=== PATIENT | female | born 1980 | race African-American/Black ===

== ENCOUNTER 2024-10-25 10:21 | Emergency (ER) | payer OTHER, SELFPAY ==
[2024-10-25 10:40] VITALS: BP 137/88; PULSE 75; RESP 16; TEMP 36.9; O2SAT 100
--- NOTE | 2024-10-25 11:00 | ED.GENADULT ---
HPI - General Adult General Chief complaint: Unspecified Stated complaint: Pain in Right Hip/ Bilateral Pain in jaw/BP High History of Present Illness HPI narrative: Ever Calix Is a 44-year-old female with past medical history of hypertension and diabetes who presents today with complaints of chest tightness on the left side of jaw pain and left arm achiness. She states that it has been off and on for the past couple days but got much worse this morning. She states that at around 7:00 a.m. she called 911 and was taken to an outside hospital but was shortly after discharge without any labs done. So she presented here to see if she can get anything else resolved with her chest pain. She denies shortness of breath blood sugar here is a 94. Related Data Home Medications ?Medication ?Instructions ?Recorded ?Confirmed ?Last Taken ?Type lisinopril 10 mg tablet mg 10/25/24 Unknown History metoprolol tartrate 25 mg tablet mg 10/25/24 Unknown History pantoprazole 40 mg tablet,delayed mg PO 10/25/24 Unknown History release potassium chloride 10 mEq meq PO 10/25/24 Unknown History tablet,extended release Allergies Allergy/AdvReac Type Severity Reaction Status Date / Time Penicillins Allergy Unknown Hives / Verified 10/25/24 10:34 Red Face Review of Systems Review of Systems: All systems reviewed & are unremarkable except as noted in HPI and below Exam Narrative: GENERAL: Well-appearing, well-nourished, and in no acute distress. HEAD: Normocephalic, atraumatic. EYES: PERRLA and EOMI. ENT: Nares clear, no rhinorrhea or epistaxis. Mucous membranes moist. Oropharynx without tonsillar hypertrophy exudate or other lesions. Bilateral TMs pearly hess nonbulging NECK: Supple. No adenopathy or masses. No carotid bruits or JVD CHEST: Clear to auscultation. No respiratory distress. No wheezes rales or rhonchi HEART: Regular rate and rhythm. No murmur heard. Normal peripheral pulses. EXTREMITIES: Normal range of motion. No edema. SKIN: Warm, dry, no rash. NEURO: No focal deficits. Alert and oriented x3. PSYCH: Normal mood and affect. Course Course Level of Care: Express Care Visit Vital Signs Vital signs: Vital Signs Temperature 36.9 C 10/25/24 10:40 Pulse Rate 75 10/25/24 10:40 Respiratory Rate 16 10/25/24 10:40 Blood Pressure 137/88 10/25/24 10:40 Pulse Oximetry 100 10/25/24 10:40 Oxygen Delivery Room Air 10/25/24 10:40 Temperature 36.9 C 10/25/24 10:40 Pulse Rate 75 10/25/24 10:40 Respiratory Rate 16 10/25/24 10:40 Blood Pressure 137/88 10/25/24 10:40 Pulse Oximetry 100 10/25/24 10:40 Oxygen Delivery Room Air 10/25/24 10:40 Medical Decision Making MDM Narrative Medical decision making narrative: 44-year-old presenting with chest tightness left-sided jaw pain and left arm achiness. Denies history of having a heart attack in the past has history of hypertension and diabetes. Pain off and on for 2 days and got worse this morning. EKG done here shows sinus rhythm rate 82 with T-wave inversion in aVL, and lead 1 blood sugars 94 with patient having this ongoing cardiac symptoms recommended her to be transferred to emergency department to have labs completed. She is agreeable to this plan and would like to go to [facility]. Call report to ER provider Nette Salmon who accepts transfer to the emergency department. Medical Records Medical records reviewed: Yes I reviewed the external patient's medical records. Vital Signs Vital Signs: Vital Signs Temperature 36.9 C 10/25/24 10:40 Pulse Rate 75 10/25/24 10:40 Respiratory Rate 16 10/25/24 10:40 Blood Pressure 137/88 10/25/24 10:40 Pulse Oximetry 100 10/25/24 10:40 Oxygen Delivery Room Air 10/25/24 10:40 Temperature 36.9 C 10/25/24 10:40 Pulse Rate 75 10/25/24 10:40 Respiratory Rate 16 10/25/24 10:40 Blood Pressure 137/88 10/25/24 10:40 Pulse Oximetry 100 10/25/24 10:40 Oxygen Delivery Room Air 10/25/24 10:40 Vitals reviewed Lab Data Lab results reviewed: Yes I reviewed the patient's lab results. Labs: Lab Results 10/25/24 Range/Units 11:04 POC Capillary Glucose 94 (65-105) mg/dl ECG Data EKG #1: ECG completion date: 10/25/24 ECG completion time: 10:47 Prior ECG tracings: not available for review Interpretation: Sinus Rhythm, left ventricular hypertrophy, T wave inversion in lead I/ aVL / V6 Rate 82, MI 141, QRS 116, QT/QTC 387/425 P-R-T Discharge Plan Discharge Clinical Impression: Chest tightness Patient Disposition: Acute Care Hospital Condition: Stable Patient Language: Arabic Prescriptions: No Action potassium chloride 10 mEq tablet extended release PO pantoprazole 40 mg tablet,delayed release (DR/EC) PO lisinopril 10 mg tablet metoprolol tartrate 25 mg tablet Follow-up/Referrals: Jet,MD Oren [Primary Care Provider] - Time of Disposition: 11:08
[2024-10-25 11:06] LABS: Glucose Point of Care 94 mg/dl (65-105)
== END 2024-10-25 11:04 | disposition short-term general hospital (02) ==
PROVIDERS: Emergency Provider Nurse Practitioner Family; PCP Family Medicine
DX: R00.2 Palpitations (principal); K08.89 Other specified disorders of teeth and supporting structures; N39.0 Urinary tract infection, site not specified; Z79.899 Other long term (current) drug therapy
CPT/HCPCS: 82948; 93005; 99215; G0463

== ENCOUNTER 2024-10-25 11:27 | Emergency (ER) | payer OTHER, SELFPAY ==
[2024-10-25 11:28] VITALS: BP 151/85; PULSE 80; RESP 14; TEMP 37.3; O2SAT 100
[2024-10-25 11:36] VITALS: O2SAT 100
[2024-10-25 12:19] LABS: BEDSIDEPREGUCG Negative (Negative)
[2024-10-25 12:22] LABS: Basophils Percent Auto 0.5 % (0.2-1.2); Eosinophils Percent Auto 0.7 % (0-4.4); Hematocrit 39.8 % (37.0-47.0); Immature Granulocyte Absolute 0.01 K/mm3 (0.00-0.031); Immature Granulocyte Percent A 0.2 % (0-0.5); Lymphocytes Absolute Auto 1.39 K/mm3 (0.9-3.2); Lymphocytes Percent Auto 24.3 % (18.3-44.2); Mean Corpuscular HGB Conc 32.7 g/dl (32-36); Mean Corpuscular Hemoglobin 26.5 pg (26-34); Mean Corpuscular Volume 81.2 fl (80-100); Mean Platelet Volume 10.3 fl (7.4-10.4); Monocytes Absolute Auto 0.5 K/mm3 (0.1-0.6); Monocytes Percent Auto 8.2 % (2.6-8.5); Neutrophils Absolute Auto 3.8 K/mm3 (1.3-6.7); Neutrophils Percent Auto 66.1 % (45.5-73.1); Platelet Count Result 279 k/mm3 (150-375); Red Cell Distribution Width 13.5 % (11.5-14.5); White Blood Count 5.7 K/mm3 (4.5-10.0)
--- NOTE | 2024-10-25 12:24 | PC.NURSE ---
patient was given 324 of aspirin by EMS
[2024-10-25 12:30] LABS: Add Urine Microscopic? YES; Appearance Urine Cloudy (Clear); Bacteria Urine 2+ /hpf; Bilirubin Urine Negative (Negative); Blood Urine Negative (Negative); Color Urine Yellow (Yellow); Glucose Urine UA Negative (Negative); Ketones Urine Negative (Negative); Leukocyte Esterase Ur 2+ LEU/UL (Negative); Nitrate Urine Negative (Negative); Non Pathogenic Casts 0-2; Protein Urine Negative (Negative); Specific Grav Ur 1.022 (1.001-1.035); Squamous Epithelial Cell Urine Few /hpf (Few); WBC Urine 21-50 /hpf (0-3); pH Urine 5.5 (5.0-9.0)
[2024-10-25 12:34] LABS: Alanine Aminotransferase 17 U/L (6-35); Albumin Level 4.2 g/dL (3.5-5.1); Alkaline Phosphatase 71 U/L (38-126); Anion Gap 12 mmol/L (4-12); Aspartate Amino Transferase 17 U/L (14-36); Blood Urea Nitrogen 14 mg/dL (7-17); Calcium 9.5 mg/dL (8.4-10.2); Carbon Dioxide 24 mmol/L (22-30); Chloride 104 mmol/L (98-107); Estimated CRCL calculation 81 ml/min; Estimated Glomerular Filt Rate > 60; Glucose 107 mg/dL (65-110); Potassium 3.1 mmol/L (3.4-5.0); Sodium 140 mmol/L (137-145)
[2024-10-25 12:36] LABS: Prothrombin Time 13.7 Seconds (11.1-14.7)
[2024-10-25 12:37] LABS: Partial Thromboplastin Time 30.6 Seconds (22.3-36.8)
[2024-10-25 12:46] LABS: Troponin I < 0.012 ng/mL (0.000-0.034)
[2024-10-25 12:51] LABS: D Dimer < 0.27 ug/mL (<0.48)
[2024-10-25 13:18] VITALS: PULSE 76; RESP 23; O2SAT 100
--- NOTE | 2024-10-25 13:43 | ED.GENADULT ---
HPI - General Adult General Chief complaint: Chest Pain Stated complaint: CP abd pain Time Seen by Provider: 10/25/24 12:36 History of Present Illness HPI narrative: This is a 44-year-old female presenting for multiple complaints. Patient is unable to provide a concise history or really anyone clear reason why she is in the emergency department. First complaint is dental pain. She has been having dental pain on the left lower and right upper and right lower molars. This is a chronic problem. She has not taken anything for pain. No difficulty swallowing or breathing. Second complaint is lower abdominal pain. She has some suprapubic discomfort. She also says she feels bloated. No fevers chills nausea vomiting diarrhea. Denies dysuria but notes urinary urgency and frequency. Third complaint is palpitations. Patient said she woke up this morning with her heart racing. She has been having this occurring for 1 year. She has had a Holter monitor in the past and was told that she has PVCs but they did not detect any other dysrhythmias. She went to a another hospital earlier this morning where she has been worked up for this multiple times and she was discharged. Patient had an appointment with her primary care physician today at 9am but missed that appointment. She then came to our hospital for evaluation. Patient is tearful and crying during the interview. She cannot really tell me why. Related Data Home Medications ?Medication ?Instructions ?Recorded ?Confirmed ?Last Taken ?Type lisinopril 10 mg tablet mg 10/25/24 Unknown History metoprolol tartrate 25 mg tablet mg 10/25/24 Unknown History pantoprazole 40 mg tablet,delayed mg PO 10/25/24 Unknown History release potassium chloride 10 mEq meq PO 10/25/24 Unknown History tablet,extended release Allergies Allergy/AdvReac Type Severity Reaction Status Date / Time Penicillins Allergy Unknown Hives / Verified 10/25/24 10:34 Red Face Exam Narrative: APPEARANCE: No apparent distress. Head: atraumatic. Poor dentition. No obvious signs of infection or abscess. EYES: EOMI, NOSE: Atraumatic NECK: Trachea midline RESPIRATORY: No increased rate of breathing CTAB CARDIOVASCULAR: RRR, no peripheral edema ABDOMINAL: Soft nontender guarding rebound MUSCULOSKELETAl: No obvious deformities NEURO: Alert. Moving 4/4 extremities SKIN:: Warm, dry. Normal color PSYCHIATRIC: Normal affect Course Vital Signs Vital signs: Vital Signs Temperature 99.1 F 10/25/24 11:28 Pulse Rate 80 10/25/24 11:28 Respiratory Rate 14 10/25/24 11:28 Blood Pressure 151/85 H 10/25/24 11:28 Pulse Oximetry 100 10/25/24 11:28 Temperature 99.1 F 10/25/24 11:28 Pulse Rate 76 10/25/24 13:18 Respiratory Rate 23 H 10/25/24 13:18 Blood Pressure 151/85 H 10/25/24 11:28 Pulse Oximetry 100 10/25/24 13:18 Oxygen Delivery Room Air 10/25/24 11:36 Medical Decision Making MDM Narrative Medical decision making narrative: -Course: 44-year-old female presenting with multiple complaints. Patient is tearful and cannot really give me a concise or consistent history during the interview. She was evidently seen at [facility] earlier this morning. I called and talked to their physician and he said that she presented there with her typical complaint of palpitations that has been worked up multiple times. She has had a Holter monitor in the past which did not reveal a significant arrhythmia. I spoke to the patient about this and she has appointment with Cardiology next week although she says she is going to miss it because she is going out of town for [employer]. She also missed her primary care office visit this morning. I stressed the importance of making her medical appointments and not going to ER status we cannot provide the comprehensive medical care that she requires. Her workup here was significant for urinary tract infection which would explain her suprapubic discomfort. This will be treated. Dental pain could be treated with NSAIDs. Her chest pain workup including chest x-ray, EKG troponin and D-dimer were negative. She will be encouraged follow-up with her container washer for management. Patient's palpitations have been ongoing for 1 year and she has already had a Holter monitor. Further workup can be performed by her container washer as needed. -DDX includes but is not limited to: Anxiety, palpitations, cardiac dysrhythmia, viral illness, urinary tract infection, dental caries Independent EKG interpretation: Rhythm [sinus], Rate [82], Joes -[normal], UT -[normal], QRS [narrow], QTC [normal], T waves -[negative for concerning inversions], ST Segments - [Negative for concerning elevations] Final interpretations: [Normal Sinus Rhythm] Vital Signs Vital Signs: Vital Signs Temperature 99.1 F 10/25/24 11:28 Pulse Rate 80 10/25/24 11:28 Respiratory Rate 14 10/25/24 11:28 Blood Pressure 151/85 H 10/25/24 11:28 Pulse Oximetry 100 10/25/24 11:28 Temperature 99.1 F 10/25/24 11:28 Pulse Rate 76 10/25/24 13:18 Respiratory Rate 23 H 10/25/24 13:18 Blood Pressure 151/85 H 10/25/24 11:28 Pulse Oximetry 100 10/25/24 13:18 Oxygen Delivery Room Air 10/25/24 11:36 Lab Data 10/25/24 12:14 10/25/24 12:14 Labs: Lab Results 10/25/24 10/25/24 10/25/24 Range/Units 11:35 12:14 13:03 WBC 5.7 (4.5-10.0) K/mm3 RBC 4.90 (4.2-5.4) M/mm3 Hgb 13.0 (12.0-15.0) g/dL Hct 39.8 (37.0-47.0) % MCV 81.2 (80-100) fl MCH 26.5 (26-34) pg MCHC 32.7 (32-36) g/dl RDW 13.5 (11.5-14.5) % Plt Count 279 (150-375) k/mm3 MPV 10.3 (7.4-10.4) fl Immature Gran % (Auto) 0.2 (0-0.5) % Neut % (Auto) 66.1 (45.5-73.1) % Lymph % (Auto) 24.3 (18.3-44.2) % [place] % (Auto) 8.2 (2.6-8.5) % Eos % (Auto) 0.7 (0-4.4) % Baso % (Auto) 0.5 (0.2-1.2) % Lymph # (Auto) 1.39 (0.9-3.2) K/mm3 [place] # (Auto) 0.5 (0.1-0.6) K/mm3 Eos # (Auto) 0.0 (0-0.3) K/mm3 Baso # (Auto) 0.0 (0.0-0.1) K/mm3 Abs Immat Gran (auto) 0.01 (0.00-0.031) K/mm3 Absolute Neuts (auto) 3.8 (1.3-6.7) K/mm3 Absolute Nucleated RBC 0.000 (0.0-0.012) K/mm3 Nucleated RBC % 0.0 (0.0-0.2) % PT 13.7 (11.1-14.7) Seconds INR 1.0 APTT 30.6 (22.3-36.8) Seconds D-Dimer < 0.27 (<0.48) ug/mL Sodium 140 (137-145) mmol/L Potassium 3.1 L (3.4-5.0) mmol/L Chloride 104 (98-107) mmol/L Carbon Dioxide 24 (22-30) mmol/L Anion Gap 12 (4-12) mmol/L BUN 14 (7-17) mg/dL Creatinine 0.79 (0.7-1.0) mg/dL Estim Creat Clear Calc 81 ml/min Estimated GFR > 60 (59 - ) Glucose 107 (65-110) mg/dL Calcium 9.5 (8.4-10.2) mg/dL Total Bilirubin 1.0 (0.2-1.3) mg/dL AST 17 (14-36) U/L ALT 17 (6-35) U/L Alkaline Phosphatase 71 (38-126) U/L Troponin I < 0.012 (0.000-0.034) ng/mL Total Protein 8.0 (6.3-8.2) g/dL Albumin 4.2 (3.5-5.1) g/dL Urine Color Yellow (Yellow) Urine Appearance Cloudy H (Clear) Urine pH 5.5 (5.0-9.0) Ur Specific [place] 1.022 (1.001-1.035) Urine Protein Negative (Negative) mg/dL Urine Glucose (UA) Negative (Negative) mg/dL Urine Ketones Negative (Negative) mg/dL Ur Blood (Man) Negative (Negative) Urine Nitrate Negative (Negative) Urine Bilirubin Negative (Negative) Urine Urobilinogen 1.0 (<2.0) mg/dL Leukocyte Esterase Rfl 2+ H (Negative) MARIA DE JESUS/UL Urine RBC 3-5 H (0-2) /hpf Urine WBC 21-50 H (0-3) /hpf Ur Squamous Epith Cells Few (Few) /hpf Urine Bacteria 2+ H /hpf Urine Casts 0-2 POC Urine HCG, Qual Negative (Negative) Influenza A (RT-PCR) Pending Influenza B (RT-PCR) Pending RSV (RT-PCR) Pending SARS-CoV-2 RNA (RT-PCR) Pending Discharge Plan Discharge Clinical Impression: Palpitations, Toothache, UTI (urinary tract infection) Patient Disposition: Home, Self-Care Condition: Stable Instructions: Antibiotic Form, Heart Palpitations (DC), Urinary Tract Infection in Women (DC) Additional Instructions: He was seen emergency department for multiple complaints. You have a UTI. Please complete a course of Keflex. Please follow-up with your container washer for further management of your palpitations. You can return ED any time if you develop chest pain shortness breath or any new worsening symptoms. Patient Language: Khmer Prescriptions: No Action potassium chloride 10 mEq tablet extended release PO pantoprazole 40 mg tablet,delayed release (DR/EC) PO lisinopril 10 mg tablet metoprolol tartrate 25 mg tablet Follow-up/Referrals: Jet,MD Oren [Primary Care Provider] - 1 Week (ED F/U. Multiple complaints, Palpitations, UTI, Toothache. )
[2024-10-25] MEDS: POTASSIUM CHLORIDE 20 MEQ PACKET (FOR LIQUID) 40 MEQ PO (13:44)
--- NOTE | 2024-10-25 13:48 | PC.NURSE ---
called and spoke with Braxton in lab to add on urine drug screen to urine sample already sent down.
[2024-10-25 13:57] LABS: Influenza A QL RT-PCR Negative (Negative); Influenza B QL RT-PCR Negative (Negative); RSV RNA, RT-PCR Negative (Negative); SARS-CoV-2 RNA PCR Negative (Negative)
[2024-10-25] MEDS: ACETAMINOPHEN 500 MG TABLET 1000 MG PO (14:28)
[2024-10-25 14:35] VITALS: BP 124/69; PULSE 67; RESP 19; TEMP 37.1; O2SAT 100
[2024-10-25 15:15] LABS: Amphetamine Screen Urine Negative (Negative); Barbiturate Screen Urine Negative (Negative); Benzodiazepines Screen Urine Negative (Negative); Cannabinoid Screen Urine Negative (Negative); Cocaine Screen Urine Negative (Negative); Methadone Screen Urine Negative (Negative); Opiate Screen Urine Negative (Negative); Phencyclidine Screen Urine Negative (Negative)
== END 2024-10-25 14:36 | disposition home or self-care (01) ==
PROVIDERS: Emergency Medicine; Emergency Provider Emergency Medicine; PCP Family Medicine
DX: N39.0 Urinary tract infection, site not specified (principal); K08.89 Other specified disorders of teeth and supporting structures; R00.2 Palpitations; Z20.822 Contact with and (suspected) exposure to COVID-19; I45.9 Conduction disorder, unspecified; R94.31 Abnormal electrocardiogram [ECG] [EKG]; I51.7 Cardiomegaly
CPT/HCPCS: 36415; 71045; 80053; 80307; 81001; 81025; 84484; 85025; 85380; 85610; 85730; 87086; 87637; 93005; 99284; A9270

== ENCOUNTER 2024-11-07 20:39 | Emergency (ER) | payer OTHER, SELFPAY ==
--- NOTE | ~2024-11-07 | XR_ITS ---
XR chest 1V portable Ordering provider: Bayron Tesfaye History: 44 years Female with . high blood pressure . Comparison: None. FINDINGS: MEDIASTINUM: The cardiac silhouette is slightly enlarged. LUNGS: No infiltrates, effusions or pneumothorax. OTHER: No free air under the diaphragm. IMPRESSION: No acute cardiopulmonary pathology. Reviewed, dictated and finalized at location A.
--- OUTSIDE RECORDS SUMMARY | 2024-11-07 20:44 | XMS_ITS ---
Author Organization Unknown Address [address], [place] [phone] Phone Care Team Providers Care Manager Industrial Name Role Phone EMILY MARELY Registered Nurse Unavailable GERRY Devries Attending Unavailable KAREN CORDERO Primary Unavailable Results URINALYSIS - Collect Date/Ti me: 10/20/2024 19:41 OSEI GIRALDO HUY [place] O ID: [id number] [address], [place], [phone] LOINC: Test Value Unit Reference Range Code Code System Flag SPEC SOURCE: Random COLOR Yellow NORMAL: Straw CLARITY Clear NORMAL: Clear SPEC GRAVITY 1.020 1.005 - 1.020 pH 5.5 5.5 - 7.5 GLUCOSE Negative NORMAL: Negative BILIRUBIN Negative NORMAL: Negative KETONE Negative NORMAL: Negative PROTEIN Negative NORMAL: Negative NITRITE Negative NORMAL: Negative BLOOD Negative NORMAL: Negative LEUK EST Negative NORMAL: Negative UROBILINOGEN 0.2 0.2 - 1.0 mg/dL MICROSCOPIC Not Indicated SENT FOR C&S NO LIPASE - Collect Date/Time: 10/20/2024 19:41 OSEI GIRALDO HUY OLIVIER C O ID: [id number] [address], [place], [id number] LOINC: Test Value Unit Reference Range Code Code System Flag LIPASE 46 IU/L L=11 H=82 CBC WITH AUTO DIFF - Collect Date/Time: 10/20/2024 18:12 OSEI GIRALDO HUY OLIVIER C O ID: [id number] [address], [place], [phone] LOINC: Test Value Unit Reference Range Code Code System Flag WBC 6.4 K/uL L=4.5 H=11.0 RBC 5.76 M/uL L=4.20 H=5.40 H HEMOGLOBIN 15.2 g/dL L=12.0 H=16.0 HEMATOCRIT 45.6 % L=33.2 H=45.3 H MCV 79.2 fL L=79.5 H=98.1 L MCH 26.4 pg L=27.0 H=31.0 L MCHC 33.3 g/dL L=32.0 H=36.0 RDW 13.3 % L=11.5 H=14.5 PLATELETS 339 K/uL L=150 H=450 MPV 10.0 fL L=7.4 H=10.4 %NEUT 57.9 % L=53.0 H=69.0 %LYMPH 32.0 % L=16.0 H=48.0 %MONO 6.8 % L=1.0 H=13.0 %EOS 2.6 % L=0.0 H=10.0 %BASO 0.5 % L=0.0 H=1.0 #NEUT 3.7 K/uL L=2.4 H=7.6 #LYMPH 2.1 K/uL L=0.2 H=5.4 MANUAL DIFF NOT INDICATED WBC MORPH RBC MORPH PLT MORPH PLT EST COMPLETE METABOLIC PANEL - C ollect Date/Time: 10/20/2024 18:12 OSEI BURGESSKI Henning ID: [id number] [address], [place], [id number] LOINC: Test Value Unit Reference Range Code Code System Flag SODIUM 137 mmol/L L=136 H=145 POTASSIUM 3.6 mmol/L L=3.5 H=5.1 CHLORIDE 101 mmol/L L=98 H=107 CO2 27 mmol/L L=21 H=31 GLUCOSE 119 mg/dL L=74 H=109 H BUN 13 mg/dL L=7 H=25 CREATININE 0.84 mg/dL L=0.60 H=1.20 AGE 44 yrs EGFR 79 ml/min L=0 H=90 TOTAL PROTEIN 8.8 g/dL L=6.4 H=8.9 ALBUMIN 4.8 g/dL L=3.5 H=5.2 CALCIUM 10.0 mg/dL L=8.6 H=10.3 TOTAL BILI 1.0 mg/dL L=0.3 H=1.0 ALKALINE PHOS 64 IU/L L=34 H=104 SGOT/AST 16 IU/L L=13 H=39 SGPT/ALT 21 IU/L L=7 H=52 ERYTHROCYTE SED RATE - Colle ct Date/Time: 10/20/2024 18:12 OSEI OLIVIER Sabas Henning ID: [id number] [address] [place] [address], [id number] LOINC: 4537-7 Test Value Unit Reference Range Code Code System Flag SED RATE 37 mm/HR L=0 H=20 H Social History Type Status Start Date End Date Code Code Syst em Smoking History Never smoker (Never Smoked) 172432397 SNOMED CT Sex Female Vital Signs Vital Sign Value Unit [place] Value [place] Unit Date/Time Recent/Initial? Code Code System Body Mass Index 28.15 kg/m2 10/20/2024 17:08 Initial 24605 -5 LOINC Systolic Blood Pressure 130 mm[Hg] 10/20/2024 20:09 Most Recent 8480- 6 LOINC Diastolic Blood Pressure 80 mm[Hg] 10/20/2024 20:09 Most Recent 8462- 4 LOINC Systolic Blood Pressure 125 mm[Hg] 10/20/2024 17:08 Initial 8480- 6 LOINC Diastolic Blood Pressure 85 mm[Hg] 10/20/2024 17:08 Initial 8462- 4 LOINC Body Surface Area 1.83 m2 10/20/2024 17:08 Initial 3140- 1 LOINC Height 162.560 0 cm 64.00 in 10/20/2024 17:08 Initial 8302- 2 LOINC O2 Saturation 99 % 2024 20:09 Most Recent 28548 -5 LOINC O2 Saturation 97 % 2024 17:08 Initial 06640 -5 LOINC Pulse 70.0 /min 10/20/2024 20:09 Most Recent 8867- 4 LOINC Pulse 61.0 /min 10/20/2024 17:08 Initial 8867- 4 LOINC Respiration 20 /min 10/20/19 25 20:09 Most Recent 9279- 1 LOINC Respiration 16 /min 10/20/19 17:08 Initial 9279- 1 LOINC Temperature 36.9 Altagracia 98.4 F 10/20/19 17:08 Initial 8310- 5 LOINC Weight 74.39 kg 164.00 lbs 10/20/2024 17:08 Initial 85210 -7 LOINC Assessment You had the following problems:UTERINE FIBROIDCHEST PAINGASTRITISABDOMINAL PAINDEGENERATIVE DISORDER OF BONEESSENTIAL HYPERTENSIONCHRONIC KIDNEY DISEASE DUE TO TYPE 2 DIABETES MELLITUSIRON DEFICIENCYCARDIOMYOPATHYIMPAIRED FASTING GLYCAEMIASLEEP APNEAMILD INTERMITTENT ASTHMAHYPERTENSIVE DISORDER, SYSTEMIC ARTERIALHIATAL HERNIA Hospital Discharge Instructions Should you have any questions prior to discharge, please contact a member of your healthcare team. If you have left the hospital and have any questions, please contact your primary care physician. Reason For Referral No Data Found Problems Problem Start Date Resolved Date Status Code Code System UTERINE FIBROID active 37147348 SNOM ED-CT CHEST PAIN active 03908032 SNOMED-CT GASTRITIS active 0282381 SNOMED-CT ABDOMINAL PAIN active 32364797 SNOME D-CT DEGENERATIVE DISORDER OF BONE active 461717158 SNOMED-CT ESSENTIAL HYPERTENSION active 5631718 0 SNOMED-CT CHRONIC KIDNEY DISEASE DUE TO TYPE 2 DIABETES MELLITUS active 701712337650 SNOMED-CT IRON DEFICIENCY active 47075149 SNOM ED-CT CARDIOMYOPATHY active 85033929 SNOME D-CT IMPAIRED FASTING GLYCAEMIA active 390 407397 SNOMED-CT SLEEP APNEA active 57347334 SNOMED-C T MILD INTERMITTENT ASTHMA active 10115 9007 SNOMED-CT HYPERTENSIVE DISORDER, SYSTEMIC ARTERIAL active 52260643 SNOMED-CT HIATAL HERNIA active 64975828 SNOMED -CT Allergies and Adverse Reactions Allergy Substance Reaction Severity Start Date Concern Status Co de Code System PENICILLIN WELTS A CHILD (SNOMED-CT: null) Moderate Active Plan of Treatment NEW PATIENT 09/17/2024 FOLLOW-UP 11/12/2024 FOLLOW-UP 12/31/2024 Personal Care Team Section Performer Name Performer Role Active Date Inactive Da tushar Progress Notes OSEI Henning 10/20/2024 20:08 IV Discontinuation Explained procedure to patient. Using aseptic technique, removed tape and other securement measures, removed IV catheter, catheter intact, applied pressure to site, and applied bio-occlusive dressing over site. Patient tolerated procedure well without complications and site appeared within normal limits. OSEI OLIVIER Sabas Henning 10/20/2024 18:11 IV StartNPSG 1: Name and date of verified Specimen labeled in front of patientyes IV Start using aseptic technique.yes Explained procedure to patient/family.yes Site:lac Size:22 Solution and rate:500/hr Venigard used to secure IV.yes Number of attempts & location(s):1 Mechanism used for control of fluid: gravity Patient tolerated procedure well without any complications or complaints. yes
--- OUTSIDE RECORDS SUMMARY | 2024-11-07 20:44 | XMS_ITS ---
Author Organization Unknown Address [address] [place] [phone] Phone Care Team Providers Care Carpenter/Labor Name Role Phone JENNY ELISE Registered Nurse Unavailable SAMANTHA DAILY Attending Unavailable KAREN CORDERO Primary Unavailable Social History Type Status Start Date End Date Code Code Syst em Smoking History Never smoker (Never Smoked) 220811370 SNOMED CT Sex Female Vital Signs Vital Sign Value Unit [place] Value [place] Unit Date/Time Recent/Initial? Code Code System Body Mass Index 28.32 kg/m2 10/08/2024 17:53 Initial 20607 -5 [facility] Systolic Blood Pressure 134 mm[Hg] 10/08/2024 17:53 Initial 8480- 6 LOINC Diastolic Blood Pressure 91 mm[Hg] 10/08/2024 17:53 Initial 8462- 4 INC Body Surface Area 1.84 m2 10/08/2024 17:53 Initial 3140- 1 LOINC Height 162.560 0 cm 64.00 in 10/08/2024 17:53 Initial 8302- 2 LOINC O2 Saturation 98 % 2024 17:53 Initial 79225 -5 [facility] Pulse 76.0 /min 10/08/2024 17:53 Initial 8867- 4 LOINC Respiration 18 /min 10/08/19 17:53 Initial 9279- 1 LOINC Temperature 37.1 Altagracia 98.8 F 10/08/19 17:53 Initial 8310- 5 LOINC Weight 74.84 kg 165.00 lbs 10/08/2024 17:53 Initial 62537 -7 [facility] Medications Medication Start Date End Date Route Frequency Dose Code Code System Medication Instructions Home Meds Pantoprazole Sodium 40 MG Oral Tablet, Delayed Release 07/17/2024 10/11/2024 ORAL DAILY 40 MG 107363 RxNorm TA KE 40 MG ORAL DAILY FOR Gerd traMADol HCl 50MG Oral Tablet 07/17/2024 10/16/2024 ORAL EVERY 6 HOURS 1 TABLET 229430 RxNorm TAKE 1 TABLET ORAL EVERY 6 HOURS NEEDED FOR PAIN Zofran 4MG Oral Tablet 07/17/2024 10/11/2024 ORAL NEEDED EVERY 4 HOURS 1 TABLET 138768 RxNorm TAKE 1 TABLET ORAL NEEDED EVERY 4 HOURS metFORMIN HCl 500MG Oral Tablet 07/17/2024 10/11/2024 ORAL TWICE A DAY 500 MILLIGR AMS 441240 RxNorm TAKE 500 MILLIGRAM S ORAL TWICE A DAY FOR Diabetes Slynd 4 MG; NA Oral Tablet 07/17/2024 10/11/2024 ORAL DAILY 4 MILLIGR AMS 6375019 RxNorm TAKE 4 MILLIGRAM S ORAL DAILY FOR Control Metoprolol Tartrate 25MG Oral Tablet 07/17/2024 10/11/2024 ORAL TWICE A DAY 12.5 MILLIGR AMS 169724 RxNorm TAKE 12.5 MILLIGRAM S ORAL TWICE A DAY FOR Blood Pressure Albuterol Sulfate HFA 0.09MG/1Actuatio n Inhalation Suspension 07/18/2024 10/11/2024 INHALATIO N NEEDED EVERY 4 HOURS 2 PUFF 3933367 RxNorm 2 PUFF INHALATIO N NEEDED EVERY 4 HOURS Cyclobenzaprine 10MG Oral Tablet 08/17/2024 10/11/2024 ORAL 1 TABLET 168854 RxNorm TAKE 1 TABLET ORAL Assessment You had the following problems:UTERINE FIBROIDCHEST [...] Status Code Code System UTERINE FIBROID active 42056645 SNOM ED-CT CHEST PAIN active 78334131 SNOMED-CT GASTRITIS active 7535823 SNOMED-CT ABDOMINAL PAIN active 29280567 SNOME D-CT DEGENERATIVE DISORDER OF BONE active 396283284 SNOMED-CT ESSENTIAL HYPERTENSION active 4848245 0 SNOMED-CT CHRONIC KIDNEY DISEASE DUE TO TYPE 2 DIABETES MELLITUS active 927281956650 SNOMED-CT IRON DEFICIENCY active 95277943 SNOM ED-CT CARDIOMYOPATHY active 97479057 SNOME D-CT IMPAIRED FASTING GLYCAEMIA active 390 256424 SNOMED-CT SLEEP APNEA active 54811881 SNOMED-C T MILD INTERMITTENT ASTHMA active 68464 9007 SNOMED-CT HYPERTENSIVE DISORDER, SYSTEMIC ARTERIAL active 46900103 SNOMED-CT HIATAL HERNIA active 82881930 SNOMED -CT Allergies and Adverse Reactions Allergy Substance Reaction Severity Start Date Concern Status Co de Code System PENICILLIN WELTS A CHILD (SNOMED-CT: null) Moderate Active Plan of Treatment NEW PATIENT 09/17/2024 FOLLOW-UP 11/12/2024 FOLLOW-UP 12/31/2024 Encounters Encounter Diagnosis Start Date Code Code Sys tem Localized eruption of skin 10/08/2024 798062796 S NOMED-CT Personal Care Team Section Performer Name Performer Role Active Date Inactive Da tushar
--- OUTSIDE RECORDS SUMMARY | 2024-11-07 20:44 | XMS_ITS ---
Author Organization Unknown Address [address] [place] [phone] Phone Care Team Providers Care Gem Technician Name Role Phone Honey Mcarthur Registered Nurse Unavailable QUINTON POND Attending Unavailable KAREN CORDERO Primary Unavailable Results URINALYSIS - Collect Date/Ti me: 11/05/2024 07:16 OSEI GIRALDO HYU [place] O ID: [id number] [address] [place] [address], [phone] LOINC: Test Value Unit Reference Range Code Code System Flag SPEC SOURCE: Random COLOR Yellow NORMAL: Straw CLARITY Clear NORMAL: Clear SPEC GRAVITY 1.010 1.005 - 1.020 pH 7.0 5.5 - 7.5 GLUCOSE Negative NORMAL: Negative BILIRUBIN Negative NORMAL: Negative KETONE Negative NORMAL: Negative PROTEIN Negative NORMAL: Negative NITRITE Negative NORMAL: Negative BLOOD Negative NORMAL: Negative LEUK EST Negative NORMAL: Negative UROBILINOGEN 0.2 0.2 - 1.0 mg/dL MICROSCOPIC Not Indicated SENT FOR C&S NO LIPASE - Collect Date/Time: 11/05/2024 05:39 OSEI GIRALDO HUY [place] O ID: [id number] [address] [place], [place], [id number] LOINC: Test Value Unit Reference Range Code Code System Flag LIPASE 24 IU/L L=11 H=82 CBC WITH AUTO DIFF - Collect Date/Time: 11/05/2024 05:39 OSEI GIRALDO HUY [place] O ID: [id number] [address] [place] [address], [id number] LOINC: Test Value Unit Reference Range Code Code System Flag WBC 4.6 K/uL L=4.5 H=11.0 RBC 5.20 M/uL L=4.20 H=5.40 HEMOGLOBIN 13.8 g/dL L=12.0 H=16.0 HEMATOCRIT 41.7 % L=33.2 H=45.3 MCV 80.2 fL L=79.5 H=98.1 MCH 26.5 pg L=27.0 H=31.0 L MCHC 33.1 g/dL L=32.0 H=36.0 RDW 13.7 % L=11.5 H=14.5 PLATELETS 262 K/uL L=150 H=450 MPV 10.0 fL L=7.4 H=10.4 %NEUT 69.2 % L=53.0 H=69.0 H %LYMPH 21.3 % L=16.0 H=48.0 %MONO 6.8 % L=1.0 H=13.0 %EOS 1.8 % L=0.0 H=10.0 %BASO 0.7 % L=0.0 H=1.0 #NEUT 3.2 K/uL L=2.4 H=7.6 #LYMPH 1.0 K/uL L=0.2 H=5.4 MANUAL DIFF NOT INDICATED WBC MORPH RBC MORPH PLT MORPH PLT EST TROPONIN HS - Collect Date/T kaylen: 11/05/2024 05:39 OSEI KEENMoriah [place] O ID: [id number] [address] [place] [address], [phone] LOINC: Test Value Unit Reference Range Code Code System Flag TROPONIN HS 0.003 ng/mL L=0.000 H=0.030 MAGNESIUM - Collect Date/Vinny e: 11/05/2024 05:39 OSEI BURGESSKI [place] O ID: [id number] [address] [place] [address], [id number] LOINC: Test Value Unit Reference Range Code Code System Flag MAGNESIUM 1.9 mg/dL L=1.6 H=2.4 COMPLETE METABOLIC PANEL - C ollect Date/Time: 11/05/2024 05:39 OSEI OLIVIER O ID: [id number] [address] [place] [address], [id number] LOINC: Test Value Unit Reference Range Code Code System Flag SODIUM 138 mmol/L L=136 H=145 POTASSIUM 3.5 mmol/L L=3.5 H=5.1 CHLORIDE 104 mmol/L L=98 H=107 CO2 26 mmol/L L=21 H=31 GLUCOSE 149 mg/dL L=74 H=109 H BUN 11 mg/dL L=7 H=25 CREATININE 0.86 mg/dL L=0.60 H=1.20 AGE 44 yrs EGFR 77 ml/min L=0 H=90 TOTAL PROTEIN 7.2 g/dL L=6.4 H=8.9 ALBUMIN 3.9 g/dL L=3.5 H=5.2 CALCIUM 9.3 mg/dL L=8.6 H=10.3 TOTAL BILI 0.6 mg/dL L=0.3 H=1.0 ALKALINE PHOS 54 IU/L L=34 H=104 SGOT/AST 7 IU/L L=13 H=39 L SGPT/ALT 7 IU/L L=7 H=52 CT ABDOMEN AND PELVIS W CONT RAST - Completed: 11/05/2024 06:34 LOINC: [id number] [address] Name: CARMELA HILL Exam: CT ABDOMEN AND PELVIS W CONTRAST Exam Date: 11/05/2024 : 1980 Acc#: [id number] Ordering: SALTY ALCANTARA Referrer: CONSUELO JONES EXAM DESCRIPTION: CT ABDOMEN AND PELVIS W CONTRAST REASON FOR STUDY: Left sided chest and lower abdominal pain. No nausea, vomiting or diarrhea. Duration: 4 days Previous Surgery: Cholecystectomy TECHNIQUE: CT scan of the abdomen and pelvis performed with intravenous and without oral contrast using helical scanning technique with dynamic intravenous contrast injection. Reconstructed coronal and sagittal MPR images reviewed. All images stored on PACS. Automated exposure control was used as a dose optimization technique for this examination. CONTRAST TYPE/DOSE: 100mL of Omnipaque 350 injected via Left AC COMPARISON: 07/13/2024 FINDINGS: LOWER CHEST: No significant pulmonary abnormalities. No effusion. Moderate-sized hiatal hernia. LIVER: Normal size. Hypodensity along falciform ligament suggesting fatty infiltrative change. GALLBLADDER: Surgically absent with clips in place. BILE DUCTS: No intrahepatic or extrahepatic ductal dilatation. SPLEEN: Normal size. No focal lesions. PANCREAS: No identified cystic or solid masses. No significant calcifications. No adjacent inflammation or peripancreatic fluid collections. Pancreatic duct not dilated. ADRENALS: Normal. KIDNEYS/URINARY TRACT: No identified significant cystic or solid masses. No visualized stones. No hydronephrosis or hydroureter. Symmetric enhancement. Urinary bladder is unremarkable. GI: No dilated bowel loops. No obvious wall thickening. Normal appendix. No significant diverticular disease. PERITONEUM: No ascites or free air. RETROPERITONEUM: No mass or adenopathy. REPRODUCTIVE: Uterus is enlarged with multiple heterogeneous density nodular foci suggesting diffuse and focal extensive fibroid disease. VASCULATURE: No abdominal aortic aneurysm. MUSCULOSKELETAL: No significant abnormality. OTHER: No other abnormality. IMPRESSION: No acute finding. Moderate-sized hiatal hernia. Diffuse and extensive uterine fibroid disease. THIS IS AN ELECTRONICALLY VERIFIED FINAL REPORT 11/05/2024 6:50 AM - Electronically signed by Kristopher Robledo M.D. RB: QIANA Report ID: [id number] Reading Location: [id number] XR CHEST 1 VIEW - Completed: 11/05/2024 05:51 LOINC: [place] [address] Name: CARMELA HILL Exam: XR CHEST 1 VIEW Exam Date: 11/05/2024 : 1980 Acc#: [id number] Ordering: SALTY ALCANTARA Referrer: CONSUELO JONES EXAM DESCRIPTION: XR CHEST 1 VIEW REASON FOR STUDY: Patient arrives to ED with complaint of left side chest/abd pain. radiates to the left flank. No co n/v/d. Duration: 4 days TECHNIQUE: Single radiographic view(s) of the chest. COMPARISON: 08/16/2024 FINDINGS: Central vascularity are nonenlarged. Aortic arch well-defined on the left. Perihilar interstitial densities likely related to mild peribronchial inflammatory change. No dense consolidation, effusion or pneumothorax. IMPRESSION: Mild peribronchial inflammatory changes. THIS IS AN ELECTRONICALLY VERIFIED FINAL REPORT 11/05/2024 6:04 AM - Electronically signed by Kristopher Robledo M.D. RB: QIANA Report ID: [id number] Reading Location: [place] [address] Social History Type Status Start Date End Date Code Code Syst em Smoking History Never smoker (Never Smoked) 246818905 SNOMED CT Sex Female Vital Signs Vital Sign Value Unit [place] Value [place] Unit Date/Time Recent/Initial? Code Code System Body Mass Index 40.02 kg/m2 11/05/2024 04:52 Initial 83962 -5 LOINC Systolic Blood Pressure 122 mm[Hg] 11/05/2024 07:45 Most Recent 8480- 6 LOINC Diastolic Blood Pressure 80 mm[Hg] 11/05/2024 07:45 Most Recent 8462- 4 LOINC Systolic Blood Pressure 156 mm[Hg] 11/05/2024 04:52 Initial 8480- 6 LOINC Diastolic Blood Pressure 105 mm[Hg] 11/05/2024 04:52 Initial 8462- 4 LOINC Body Surface Area 1.69 m2 11/05/2024 04:52 Initial 3140- 1 LOINC Height 137.160 0 cm 54.00 in 11/05/2024 04:52 Initial 8302- 2 LOINC O2 Saturation 95 % 2024 07:45 Most Recent 94473 -5 LOINC O2 Saturation 98 % 2024 04:52 Initial 11793 -5 LOINC Pulse 75.0 /min 11/05/2024 07:45 Most Recent 8867- 4 LOINC Pulse 92.0 /min 11/05/2024 04:52 Initial 8867- 4 LOINC Respiration 17 /min 11/06/19 04:52 Initial 9279- 1 LOINC Temperature 37.0 Altagracia 98.6 F 11/06/19 04:52 Initial 8310- 5 LOINC Weight 75.30 kg 166.00 lbs 11/05/2024 04:52 Initial 78238 -7 LOINC Assessment You had the following [...] Status Code Code System UTERINE FIBROID active 96415466 SNOM ED-CT CHEST PAIN active 50789447 SNOMED-CT GASTRITIS active 0897588 SNOMED-CT ABDOMINAL PAIN active 41315092 SNOME D-CT DEGENERATIVE DISORDER OF BONE active 267498385 SNOMED-CT ESSENTIAL HYPERTENSION active 3071028 0 SNOMED-CT CHRONIC KIDNEY DISEASE DUE TO TYPE 2 DIABETES MELLITUS active 154791468549 SNOMED-CT IRON DEFICIENCY active 79076875 SNOM ED-CT CARDIOMYOPATHY active 40395745 SNOME D-CT IMPAIRED FASTING GLYCAEMIA active 390 362080 SNOMED-CT SLEEP APNEA active 34966724 SNOMED-C T MILD INTERMITTENT ASTHMA active 49193 9007 SNOMED-CT HYPERTENSIVE DISORDER, SYSTEMIC ARTERIAL active 13188272 SNOMED-CT HIATAL HERNIA active 96315797 SNOMED -CT Allergies and Adverse Reactions Allergy Substance Reaction Severity Start Date Concern Status Co de Code System PENICILLIN WELTS A CHILD (SNOMED-CT: null) Moderate Active Plan of Treatment NEW PATIENT 09/17/2024 FOLLOW-UP 11/12/2024 FOLLOW-UP 12/31/2024 Personal Care Team Section Performer Name Performer Role Active Date Inactive Da te Progress Notes OSEI Henning 11/05/2024 05:40 IV StartNPSG 1: Name and date of verified Specimen labeled in front of patient IV Start using aseptic technique. Explained procedure to patient/family. Site:Left AC Size: 20 gauge Solution and rate: NSL Venigard used to secure IV. Number of attempts & location(s):2 Right AC and Left AC Mechanism used for control of fluid: NSL Patient tolerated procedure well without any complications or complaints.
--- OUTSIDE RECORDS SUMMARY | 2024-11-07 20:44 | XMS_ITS | Data Portability ---
Author Organization [facility] [place] [facility] Address [address] [place] [address] Assessment Encounter Date Assessment Date Assessment LastModified by Organization Details LastModified Time 09/27/2024 09/27/2024 44-year-old female with a history of intramural leiomyoma of the uterus presenting with symptoms of menometrorrhagia. The patient has ongoing issues with irregular and excessive menstrual bleeding, contributing to anemia. Given her strong preference to avoid hysterectomy, alternative uterine-sparing procedures such as uterine artery embolization are being considered. Her cardiovascular symptoms, including palpitations and abnormal EKG findings, require further monitoring and evaluation to ascertain the presence of any underlying cardiac pathology that might be contributing to her symptoms. [facility]our[facility] with [email or web address] Not available 09/27/2024 12:31:18 Plan of Treatment Reminders Order Date Submit Date Provider Last Modified By Organization Details Last Modified Time Details Appointments None recorded. Lab test, urine 2023 024 breanna [facility], [address] [place], [address], 4 12:41:36 prolactin, serum 2021 022 [facility], [address] [place], [address], 2 05:12:28 TSH, serum or plasma 2021 022 [facility], [address] [place], [address], 2 05:12:28 pap, IG + HPV mRNA E6/E7 + reflex HPV (16+18+45) 2021 022 [facility], [address] [facility] [place], [place], [address], 16:02:47 Referral None recorded. Procedures None recorded. Surgeries None recorded. Imaging US, transvagina l 2024 025 [email or web address] Not available 5 11:58:58 US, transvagina l 2023 024 [email or web address] Not available 13:31:21 bone density 2021 022 [email or web address] Not available 11:16:00 MAMMO, screening, digital, bilateral 2021 022 [email or web address] Not available 11:16:00 Medication Orders Slynd 4 mg (28) tablet 2023 024 MONA [facility], [address] [place], [address], 4 13:12:07 Provera 10 mg tablet 2023 024 [email or web address] [facility], [address] [place], [address], 5 11:13:29 Patient TargetsNo targets recorded. Patient Instructions Encounter Date Encounter Id Patient Instructions Last Modified By Organization Details Last Modified Time 04/07/2022 [id number] Patient Health Questionnaire-9* [email or web address] Not available 04/14/2022 12:02:08 abuse/domestic violence education [email or web address] Not available 04/07/2022 13:22:57 eating healthy foods: care instructions [email or web address] Not available 04/07/2022 13:22:57 general health care education [email or web address] Not available 04/07/2022 13:22:58 weight management education [email or web address] Not available 04/07/2022 13:22:57 mammogram: about this test [email or web address] Not available 04/07/2022 13:22:57 04/12/2024 [id number] - Start taking the prescribed progesterone-onl y pills - Schedule a follow-up appointment in six months to monitor fibroid growth and assess the response to treatment - Discontinue the previously prescribed progesterone - Be aware of the limitations on hormonal treatments containing estrogen due to high blood pressure Not available 04/27/2024 20:42:25 09/27/2024 [id number] -Follow up with cardiology Not available 09/27/2024 12:31:28 Reason for Referral None Reported. Results Created Date Observation Date Name Description Value Unit Range Abnormal Flag Note LastModifiedBy Organization Detail LastModifiedTime 04/07/2004/08/2022 PROLA CTIN prolactin 8.2 NG/mL normal Refer ence Range Femal es Non-p regna nt 3.0-3 0.0 Pregn ant 10.0- 209.0 Postm enopa usal 2.0-2 0.0 Not Available [facility] [address] [address] [place], [address], 04/08/2022 05:12:28 04/07/20 22 04/08/2022 TSH W/REF HUGO TO FT4 TSH w/reflex to FT4 1.58 mIU/L normal Refer ence Range > or = 20 Years 0.40- 4.50 Pregn liana Range s First trime ster 0.26- 2.66 Secon d trime ster 0.55- 2.73 Third trime ster 0.43- 2.91 Not Available [facility] [address] [place], [address], 04/08/2022 05:12:28 04/07/20 22 04/11/2022 THINP REP TIS PAP AND HPV MRNA E6/E7 WITH REFLE X TO HPV 16,18 /45 clinical information: normal Infor matio n not provi ded Not Available [facility] [address] [address] [place], [address], 04/11/2022 16:02:47 04/07/20 22 04/11/2022 THINP REP TIS PAP AND HPV MRNA E6/E7 WITH REFLE X TO HPV 16,18 /45 LMP: normal NONE GIVEN Not Available [address], [address], 04/11/2022 16:02:47 04/07/20 22 04/11/2022 THINP REP TIS PAP AND HPV MRNA E6/E7 WITH REFLE X TO HPV 16,18 /45 prev. Pap: normal NONE GIVEN Not Available [address], [address], 04/11/2022 16:02:47 04/07/20 22 04/11/2022 THINP REP TIS PAP AND HPV MRNA E6/E7 WITH REFLE X TO HPV 16,18 /45 prev. BX: normal NONE GIVEN Not Available [address], [address], 04/11/2022 16:02:47 04/07/20 22 04/11/2022 THINP REP TIS PAP AND HPV MRNA E6/E7 WITH REFLE X TO HPV 16,18 /45 source: normal None given Not Available [address], [address], 04/11/2022 16:02:47 04/07/20 22 04/11/2022 THINP REP TIS PAP AND HPV MRNA E6/E7 WITH REFLE X TO HPV 16,18 /45 statement of adequacy: normal Satis facto ry for evalu ation . Endoc ervic al/tr ansfo rmati on zone compo nent prese nt. Age and/o r menst rual statu s not provi ded Not Available [address], [address], 04/11/2022 16:02:47 04/07/20 22 04/11/2022 THINP REP TIS PAP AND HPV MRNA E6/E7 WITH REFLE X TO HPV 16,18 /45 interpretati on/result: normal Negat shaye for intra epith elial lesio n or malig brenton . Not Available [address] [address] [place], [address], 04/11/2022 16:02:47 04/07/20 22 04/11/2022 THINP REP TIS PAP AND HPV MRNA E6/E7 WITH REFLE X TO HPV 16,18 /45 comment: normal This Pap test has been evalu ated with compu mckeon techn ology . Not Available [address] [address] [address], [place], [address], 04/11/2022 16:02:47 04/07/20 22 04/11/2022 THINP REP TIS PAP AND HPV MRNA E6/E7 WITH REFLE X TO HPV 16,18 /45 cytotechnolo gist: normal DDS, CT( CP) CT scree vinny locat ion: [address] [place] [address] Not Available [address] [address] [place], [address], 04/11/2022 16:02:47 04/07/20 22 04/11/2022 THINP REP TIS PAP AND HPV MRNA E6/E7 WITH REFLE X TO HPV 16,18 /45 comment EXPLA NATOR Y NOTE: The Pap is a scree vinny test for cervi shahla cance r. It is not a diagn ostic test and is subje ct to false negat shaye and false posit shaye resul ts. It is most relia ble when a satis facto ry sampl e, regul aashish obtai claire, is submi tted with relev ant clini shahla findi ngs and histo ry, and when the Pap resul t is evalu ated along with histo vincenzo and curre nt clini shahla infor matio n. Not Available [address] [address] [place], [address], 04/11/2022 16:02:47 04/07/20 22 04/11/2022 THINP REP TIS PAP AND HPV MRNA E6/E7 WITH REFLE X TO HPV 16,18 /45 HPV MRNA E6/E7 Not Detect ed not detect ed normal Metho dolog y: Trans cript ion-M ediat ed Ampli ficat ion This assay detec ts E6/E7 viral messe nger RNA (mRNA ) from 14 high- risk HPV types (16,1 8,31, 33,35 ,39,4 5,51, 52,56 ,58,5 9,66, 68). Cervi shahla sourc es are requi red for HPV testi ng. If a vagin al sourc e from a patie nt who has had a total hyste recto my with remov al of cervi x was submi tted, pleas e conta ct the testi ng labor atory for alter nativ e testi ng optio ns. For addit ional infor keysha camejo refer to http: //[facility] mykel patrick.que stdia gnost ics.c om/fa q/FAQ 129v1 (This link if provi ded for infor nancy patrick/ educmeghan tolentino purpo ses only. ) Not Available [facility] [address] [place], [address], 04/11/2022 16:02:47 03/14/20 24 03/14/2024 pregn liana test, urine HCG negati ve Not Available [facility] [address] [place], [address], 03/08/2024 09:58:09 04/12/20 24 04/12/2024 , trans vagin al No observ ation record ed. [email or web address] Cec[address], [place], [address], 04/12/2024 15:11:13 09/27/19 25 09/27/2024 , trans vagin al No observ ation record ed. [email or web address] [address], [place], [address], 09/27/2024 12:36:26 Result Notes None recorded. Problems Name Problem SNOMED Code Status Onset Date Resolution Date Notes Provider Name and Address Organization Details Recorded Time Breast lump 97654654 Completed 201609/14/2018 Breast mass; Progress : Stable Added By: Sahra Hardwick Add to Current Problems : NO ProblemS tatus: Resolve Unspecif ied lump in breast; Progress : Stable Added By: Sahra Hardwick Add to Current Problems : NO ProblemS tatus: Resolve Breast mass; Location : None Progress : Stable Added By: Sahra Hardwick Add to Current Problems : YES ProblemS tatus: Current Not Available [facility] 10:47:25 Problem Notes None recorded. Procedures Surgical History Date Name Laterality Status Provider Name and Address Organization Details Recorded Time 08/28/19 24 Most Recent Mammogram completed Cathy Mo [facility] 03/14/2024 12:08:22 04/07/20 Date of Last Pap Smear completed Honey Brizuela, [facility] [address] [place], [address], [facility] 03/08/2024 09:54:14 cholecystostomy completed Lucy Bret [facility] [place] [facility] IV 09/27/2024 11:12:49 Imaging Results Imaging Date Name Status LastModified by Organization Details LastModified Time 04/12/2024 US, transvaginal completed [email or web address] [address], [place], [address], 04/12/2024 15:11:13 09/27/2024 US, transvaginal completed [email or web address] [address], [place], [address], 09/27/2024 12:36:26 Procedure Notes None recorded. Medical Equipment None Reported. Allergies Allergen ID Allergen Name Allergen Category Reaction Reaction Severity Criticality Documentation Date Start Date Code Code System Note Provider Name and Address Organization Details Recorded Time 436991 Product containin g penicilli n (product) medicatio n hives moderate Not available 06/18/20212016 30668 8001 SNOMED React ion: hives ;Cheryl rity: Moder ate; Not Available Not Available Not Available Medications Name Sig Start Date Stop Date Status Note LastModified by Organization Details LastModified Time cyclobenz aprine 10 mg tablet 04/12 completed Not Available Not Available Not Available medroxypr ogesteron e 10 mg tablet TAKE 1 TABLET EVERY DAY BY ORAL ROUTE. 09/27 completed Not Available Not Available Not Available metformin 500 mg tablet 09/27 completed Not Available Not Available Not Available prednison e 10 mg tablet 04/12 completed Not Available Not Available Not Available doxycycli ne hyclate 100 mg capsule 03/14 completed Not Available Not Available Not Available clindamyc in HCl 300 mg capsule 03/14 completed Not Available Not Available Not Available sucralfat e 1 gram tablet 04/12 completed Not Available Not Available Not Available metronida zole 250 mg tablet 03/14 completed Not Available Not Available Not Available triamcino lone acetonide 0.1 % topical cream 04/12 completed Not Available Not Available Not Available dicyclomi ne 20 mg tablet 04/12 completed Not Available Not Available Not Available pantopraz ole 40 mg tablet,de layed release active Not Available Not Available Not Available nystatin 100,000 unit/gram topical cream 04/12 completed Not Available Not Available Not Available lisinopri l 10 mg tablet 2023 active Not Available Not Available Not Avai lable aspirin 81 mg chewable tablet 09/27 completed Not Available Not Available Not Available lisinopri l 5 mg tablet active Not Available Not Available Not Available mupirocin 2 % topical ointment apply a small amount to the affected area by topical route 3 times per day 04/07 completed mupiroci n 2 % Topical Ointment RxNorm: 202225 Allow Substitu tion: True Refill Denied: No Edited by: Nikolas Vaz) on 12/08/19 21 Stopped by: Jah bailey(Nikolas Thompson) on Not Available Not Available Not Available ondansetr on 4 mg disintegr ating tablet 03/14 completed Not Available Not Available Not Available fluticaso ne propionat e 50 mcg/actua tion nasal spray,ryan pension USE 2 SPRAY(S) IN EACH NOSTRIL ONCE DAILY 04/12 completed Not Available Not Available Not Available clotrimaz ole 1 % topical cream Apply a very small amoun to the affected areas BID x 10 days 02/11 completed Clotrima zole 1% Cream RxNorm: 541520 Allow Substitu tion: True Refill Denied: No Not Available Not Available Not Available metoclopr amide 10 mg tablet TAKE 1 TABLET BY MOUTH 4 TIMES DAILY FOR 10 DAYS 03/14 completed Not Available Not Available Not Available metoprolo l tartrate 25 mg tablet 09/27 completed Not Available Not Available Not Available clotrimaz ole Apply a very small amoun to the affected areas BID x 10 days 09/14 completed Clotrima zole 1% Cream RxNorm: 404355 Allow Substitu tion: True Refill Denied: No Not Available Not Available Not Available Prilosec 03/14 completed Prilosec RxNorm: 510776 Allow Substitu tion: True Refill Denied: No Refill DateOccu rred: 01/31/20 17 Edited by: Nikolas Vaz) on 12/08/19 21 Stopped by: Jah bailey(Nikolas Thompson) on Not Available Not Available Not Available OneTouch Verio test strips active Not Available Not Available Not Available OneTouch Verio Flex Meter active Not Available Not Available Not Available OneTouch Delica Plus Lancet 33 gauge active Not Available Not Available Not Available Slynd 4 mg (28) tablet Take 1 tablet every day by oral route. active Not Available Not Available No t Available Rybelsus 7 mg tablet 04/12 completed Not Available Not Available Not Available Vitals Date Recorded Body weight Body mass index (BMI) Body height Systolic blood pressure Diastolic blood pressure Provider Name and Address Organization Details Last Updated DateTime 12/13/2021 78784.7 g 34.9 kg/m2 160.02 cm 130 mm[Hg] 80 mm[Hg] Cindy Casas [facility] Stio 2 13:17:26 Date Recorded Body height Body mass index (BMI) Body weight Body temperature Systolic blood pressure Diastolic blood pressure Provider Name and Address Organization Details Last Updated DateTime 2 160.02 cm 34.2 kg/m2 04603.3 3 g 97 [degF] 120 mm[Hg] 80 mm[Hg] Walter Garrison [facility] 2 12:52:51 Date Recorded Body height Body mass index (BMI) Body weight Systolic blood pressure Diastolic blood pressure Provider Name and Address Organization Details Last Updated DateTime 03/14/2024 160.02 cm 31.4 kg/m2 88931.57 g 122 mm[Hg] 76 mm[Hg] Cathy Mo [facility] 4 12:12:58 Date Recorded Body height Body mass index (BMI) Body weight Body temperature Systolic blood pressure Diastolic blood pressure Provider Name and Address Organization Details Last Updated DateTime 4 160.02 cm 31.2 kg/m2 68268.6 9 g 96.8 [degF] 102 mm[Hg] 76 mm[Hg] Cindy Duong [facility] IV 4 12:36:12 Date Recorded Body height Body mass index (BMI) Body weight Systolic blood pressure Diastolic blood pressure Provider Name and Address Organization Details Last Updated DateTime 09/27/2024 160.02 cm 29.3 kg/m2 46412.18 g 116 mm[Hg] 70 mm[Hg] Lucy Bret [facility] IV 5 11:18:30 Social History Question Answer Notes LastModified by Organizat ion Details LastModified Time Tobacco Smoking Status Never Smoker Cathy [facility], [facility] 03/14/2024 12:08:50 What Is Your Level Of Alcohol Consumption? Occasional [email or web address] Information not available 03/14/2024 If You Are , What Was Your Level Of Alcohol Consumption Prior To ? None [email or web address] Information not available 09/27/2024 Are You Blind Or Do You Have Difficulty Seeing? No [email or web address] Information not available 03/14/2024 Are You Deaf Or Do You Have Serious Difficulty Hearing? No [email or web address] Information not available 03/14/2024 What Type Of Diet Are You Following? REGULAR [email or web address] Information not available 03/14/2024 How Many Children Do You Have? 3 [email or web address] Information not available 03/14/2024 What Is Your Relationship Status? Single Information not available 12/11/2021 Are You Sexually Active? No Information not available 12/11/2021 Do You Use Any Illicit Or Recreational Drugs? No [email or web address] Information not available 03/14/2024 Do You Or Have You Ever Used Any Other Forms Of Tobacco Or Nicotine? No [email or web address] Information not available 03/14/2024 Sex: Unknown Functional Status None recorded. Mental Status None recorded. Family History Relationship Description Onset Age of this Age Resolved Age Notes LastModified by Organization Details LastModified Time Father No current problems or disability [email or web address] Not available 23:44:04 Mother No current problems or disability [email or web address] Not available 23:44:04 Mother Carcinoma in situ of breast [email or web address] Not available 12/13 13:13:09 Medical History Condition Response High Blood Pressure Y Diabetes Mellitus (non-insulin dependent ) Y Asthma Y GERD/Reflux Y Gynecological History Statement/Question Response Flow Heavy Date of last HPV 04/07/2022 Date of LMP 09/08/2024 Date of Last Pap Smear 04/07/2022 Duration of Flow (days) 4 Most Recent Mammogram 08/28/2023 Current Control Method None Age at Menarche 12 Obstetrics History GPAL:G 3 P 3 0 0 3 Type Value Full Term 3 Living 3 Total 3 Past Encounters Encounter ID Performer Location Encounter Start Date Encounter Closed Date Diagnosis/Indication Diagnosis SNOMED-CT Code Diagnosis ICD10 Code Diagnosis Note [id number] CALLY Resendiz [facility] [address] [place] [address] 12/13/2021 12:20:32 12/13/2021 15:07:26 Family history of breast cancer 506481088 Z80.3 BRCA screening test done today.Mamm ogram is scheduled for 12/15/21f/u pending BRCA results [id number] Maeve olson CNM [facility] [address] [place] [address] 04/07/2022 12:45:20 04/08/2022 10:23:25 Gynecologic examination 59727498 Z01.419 Screening for malignant neoplasm of cervix 578779290 Z12.4 Screening for malignant neoplasm of breast 202031536 Z12.39 Screening for osteoporosis 053485960 Z13.820 Diabetes m ellitus screening 719669455 Z13.1 Depression screening 171 969223 Z13.31 Discharge from breast 27 8522014 N64.52 no discharge seen on todays exam, pt states R is worse than left and it's a yellow/adrian ar color [id number] CALLY Regalado [facility] [address] [place] [address] 03/14/2024 11:43:21 03/16/2024 02:22:58 Abnormal uterine bleeding 8061447245 9100 N93.9 Pt educated on possible causes of sx and discussed work up. Pt signed records release for CT done in 02/2024 at [facility]. UPT is negative. Last Pap: 03/2022 NILM, HPV neg. Pt declines exam in office. Plan to F/U in office for TVUS to further evaluate CT concerns. Pt also advised to consider EMB to further evaluate heavy bleeding. Pt states she doesn't feel she can tolerate in office d/t h/o painful experience with exams/bx in the past. Pt encouraged to make next appt with MD to discuss EMB under sedation in outpatient OR. Pt given [facility] handout entitled Abnormal Uterine Bleeding and handout on EMB procedure. Pt offered short term interventi on of progestero ne only hormonal therapy to reduce bleeding. Risks/Bene fits of therapy reviewed, and strongly encouraged to still F/U for further evaluation of sx. Pt amenable to POC. Rx for Provera sent. Pt educated on bleeding precaution s and discussed when to notify HCP/go to ER. Pt states understand ing of POC. Over 45 minutes spent in patient care and at least 50% of that time was in face to face counseling . [id number] Nette Terry MD [facility] [address] [place] [address] 04/12/2024 11:00:14 04/12/2024 13:31:20 Menorrhagia 368375204 N92.0 Heavy periods: The patient's heavy periods are likely due to the presence of fibroids. A trial of progestero ne-only pills is prescribed to manage her heavy bleeding. She is counseled on the potential treatment options, including uterine artery embolizati on and hysterecto my, but opts to try hormonal therapy first. A follow-up appointmen t is scheduled in six months to assess the response to treatment and monitor the growth of her fibroids. Leiomyoma 1565952579 91187 D21.9 [id number] Netet Terry MD [facility] [address] [place] [address] 09/27/2024 10:29:51 09/27/2024 11:58:58 Menometrorrhagia 333817357 N92.1 Address anemia through iron infusions. Manage the symptoms through hormonal therapy or procedural interventi on to reduce bleeding, dependent on MRI and biopsy results. Intramural leiomyoma of uterus 60713010 D25.1 Evaluate the leiomyoma using MRI and endometria l biopsy. Consider uterine artery embolizati on as a minimally invasive procedure to manage the fibroid if hysterecto my is not desired by the patient. Ensure patient's comfort and pain management during the biopsy procedure. Health Concerns Section Related Observation LastModified by Organization Detai ls LastModified Time None Recorded Concern Status LastModified by Organization Details LastModified Time None Recorded Advance Directives Directive None Recorded Payers Encounter Date Sequence Insurance Name Policy Number Policy Peter Covered Member ID Peter Member ID Guarantor Name 12/13/2021 1 [employer] Miguel Angel Calix [id number] Miguel Angel Calix 04/07/2022 1 [employer] [place] ON [place] AFTER 2020 (MEDICAID REPLACEMENT - HMO) Miguel Angel Calix [id number] Miguel Angel Calix 03/14/2024 1 [employer] [place] AFTER 2020 (MEDICAID REPLACEMENT - HMO) Miguel Angel Calix [id number] Miguel Angel Calix 04/12/2024 1 [employer] [place] AFTER 2020 (MEDICAID REPLACEMENT - HMO) Miguel Angel Calix [id number] Miguel Angel Calix 09/27/2024 1 [employer] [place] 2020 (MEDICAID REPLAC[place] - HMO) Miguel Angel Calix [id number] Miguel Angel Calix Notes Date Note Type Note Provider Name and Address Organization Details Recorded Time 12/13/2021 text/html Miguel Angel reports a (+) FH of breast cancer and desires genetic screening. She has a mammogram scheduled for 12/15/21. Risk assessment questionnaire completed. Explained review by insurance and may decline coverage. In this case, the test is canceled. Nikolas Wheat, HOOD [address] [facility], [place], [address], [facility] IV 12/19/2021 11:25:27 04/07/2022 text/html Patient is here for annual exam patient states that she has been having leaking breast for 3 years patient states she wants a mammogram referral Maeve Ambrosio CNM [address] [facility], [place], [address], [facility] IV 04/07/2022 20:29:02 03/14/2024 text/html Pt presents to o ice for concerns for fibroids. Pt states she was Dx with Fibroids in ; saw Nikolas at that time. Pt states she has a EMB around the time of dx for menorrhagia, and pathology was WNL. Pt states she is not on any hormonal therapy for dx. Last Pap: 03/2022 NILM, HPV neg. No STD testing results on file. Pt characterized her bleeding as every 30 days lasting for 4 days. Pt states she changes pads/tampons 2 hours for the first two days and then lightens. When bleeding heavily will also pass clots. LMP: 02/29/24. Pt states she recently had imaging done at [facility]. Pt states radiologist was concerned about fibroid presence, and advised her to F/U with PCP. No imaging results on file for review at time of encounter. Pt has a h/o anemia, and has received iron transfusions. Most recent iron transfusion was in 11/2023, and provider is working on scheduling another in the near future. Pt has no other concerns. Honey Brizuela, CALLY [address] [facility], [place], [address], [facility] 03/14/2024 17:57:37 04/12/2024 text/html Miguel Angel is here to f/u on AUB. Had US in office today. LMP 03/28/24, states her cycles usually last 3 days and this one lasted 5. Complains of very heavy cycles. History of fibroids. Currently taking medroxyPROGESTERone. The patient is a 43-year-old female who presents with complaints of heavy periods. She experienced large clots in the previous month, but this time the flow is heavy without the clots. She reports that her periods have been irregular for the last couple of years, sometimes being on time and other times being late by a few days. Her periods now last for around five days instead of her usual three. She has been diagnosed with fibroids in 2012 and has been prescribed progesterone recently but has not tried any other treatments for her heavy periods. In the past, she has tried the patch and the ring as forms of control but stopped due to side effects. Nette Terry MD [address] [place] [address], [phone], Novaliq IV 04/27/2024 20:42:34 09/27/2024 text/html Miguel Angel is a 44 year old woman. Pt stated that she had an TVUS today for her fibroids. Pt stated that she has no new concerns. The patient is a 44-year-old female presenting with issues related to her intramural leiomyoma of the uterus and menometrorrhagia. The patient reports experiencing irregular and excessive menstrual bleeding, which sometimes lasts up to a week. These irregular cycles have been present for several months, often affecting her daily activities and quality of life. Additionally, the patient mentioned feeling unwell due to her menstrual complaints, leading to anemia for which iron infusions were prescribed. She has been contemplating different treatment options including hysterectomy but expressed a desire to avoid surgery. An alternative treatment discussed was uterine artery embolization, which she was considering. Examination of the fibroid using MRI and biopsy was proposed to better understand its characteristics before proceeding with embolization. Nette Terry MD [address] [place] [address], [place], [phone], Novaliq IV 09/27/2024 12:31:40 OBGyn Episode No OBEpisode recorded.
--- OUTSIDE RECORDS SUMMARY | 2024-11-07 20:45 | XMS_ITS ---
Author Organization Unknown Address [address] [place] [phone] Phone Care Team Providers Care Senior Consultant Name Role Phone EMILY YAP Registered Nurse Unavailable REID MACE Attending Unavailable KAREN CORDERO Primary Unavailable Social History Type Status Start Date End Date Code Code Syst em Smoking History Never smoker (Never Smoked) 686156824 SNOMED CT Sex Female Vital Signs Vital Sign Value Unit Fel[place] Value Felch Unit Date/Time Recent/Initial? Code Code System Body Mass Index 27.98 kg/m2 06/10/2024 15:04 Initial 72207 -5 [facility] Systolic Blood Pressure 116 mm[Hg] 06/10/2024 15:04 Initial 8480- 6 LOINC Diastolic Blood Pressure 76 mm[Hg] 06/10/2024 15:04 Initial 8462- 4 [facility] Body Surface Area 1.83 m2 06/10/2024 15:04 Initial 3140- 1 LOINC Height 162.560 0 cm 64.00 in 06/10/2024 15:04 Initial 8302- 2 [facility] O2 Saturation 99 % 2023 15:04 Initial 53871 -5 [facility] Pulse 71.0 /min 06/10/2024 15:04 Initial 8867- 4 LOINC Respiration 18 /min 06/10/20 15:04 Initial 9279- 1 LOINC Temperature 36.5 Altagracia 97.7 F 06/10/20 15:04 Initial 8310- 5 LOINC Weight 73.94 kg 163.00 lbs 06/10/2024 15:04 Initial 31593 -7 [facility] Medications Medication Start Date End Date Route Frequency Dose Code Code System Medication Instructions Home Meds Pantoprazole Sodium 40 MG Oral Tablet, Delayed Release 07/17/2024 10/11/2024 ORAL DAILY 40 MG 119254 RxNorm TA KE 40 MG ORAL DAILY FOR Gerd traMADol HCl 50MG Oral Tablet 07/17/2024 10/16/2024 ORAL EVERY 6 HOURS 1 TABLET 076701 RxNorm TAKE 1 TABLET ORAL EVERY 6 HOURS NEEDED FOR PAIN Zofran 4MG Oral Tablet 07/17/2024 10/11/2024 ORAL NEEDED EVERY 4 HOURS 1 TABLET 677295 RxNorm TAKE 1 TABLET ORAL NEEDED EVERY 4 HOURS Mylanta Maximum Strength 800 MG/10 ML-800 MG/10 ML-80 MG/10 ML Oral Suspension 07/17/2024 08/16/2024 ORAL NEEDED 10 mL 843208 RxNorm TAKE 10 mL ORAL NEEDED FOR Gerd metFORMIN HCl 500MG Oral Tablet 07/17/2024 10/11/2024 ORAL TWICE A DAY 500 MILLIGR AMS 603393 RxNorm TAKE 500 MILLIGRAM S ORAL TWICE A DAY FOR Diabetes Slynd 4 MG; NA Oral Tablet 07/17/2024 10/11/2024 ORAL DAILY 4 MILLIGR AMS 3418824 RxNorm TAKE 4 MILLIGRAM S ORAL DAILY FOR Control Metoprolol Tartrate 25MG Oral Tablet 07/17/2024 10/11/2024 ORAL TWICE A DAY 12.5 MILLIGR AMS 282208 RxNorm TAKE 12.5 MILLIGRAM S ORAL TWICE A DAY FOR Blood Pressure Lisinopril 10MG Oral Tablet 07/17/2024 08/16/2024 ORAL DAILY 10 MILLIGR AMS 013803 RxNorm TAKE 10 MILLIGRAM S ORAL DAILY FOR Blood Pressure Albuterol Sulfate HFA 0.09MG/1Actuatio n Inhalation Suspension 07/18/2024 10/11/2024 INHALATIO N NEEDED EVERY 4 HOURS 2 PUFF 4876024 RxNorm 2 PUFF INHALATIO N NEEDED EVERY 4 HOURS Cyclobenzaprine 10MG Oral Tablet 08/17/2024 10/11/2024 ORAL 1 TABLET 188194 RxNorm TAKE 1 TABLET ORAL Assessment You [...] Status Code Code System UTERINE FIBROID active 86054256 SNOM ED-CT CHEST PAIN active 81272570 SNOMED-CT GASTRITIS active 6784016 SNOMED-CT ABDOMINAL PAIN active 57834046 SNOME D-CT DEGENERATIVE DISORDER OF BONE active 768867906 SNOMED-CT ESSENTIAL HYPERTENSION active 7312432 0 SNOMED-CT CHRONIC KIDNEY DISEASE DUE TO TYPE 2 DIABETES MELLITUS active 876678753499 SNOMED-CT IRON DEFICIENCY active 64458939 SNOM ED-CT CARDIOMYOPATHY active 13059054 SNOME D-CT IMPAIRED FASTING GLYCAEMIA active 390 646444 SNOMED-CT SLEEP APNEA active 20068565 SNOMED-C T MILD INTERMITTENT ASTHMA active 52028 9007 SNOMED-CT HYPERTENSIVE DISORDER, SYSTEMIC ARTERIAL active 15409565 SNOMED-CT HIATAL HERNIA active 02199229 SNOMED -CT Allergies and Adverse Reactions Allergy Substance Reaction Severity Start Date Concern Status Co de Code System PENICILLIN WELTS A CHILD (SNOMED-CT: null) Moderate Active Plan of Treatment NEW PATIENT 09/17/2024 FOLLOW-UP 11/12/2024 FOLLOW-UP 12/31/2024 Encounters Encounter Diagnosis Start Date Code Code Sys tem Acute upper respiratory infection, unspecified 024 SNOMED-CT Personal Care Team Section Performer Name Performer Role Active Date Inactive Da te
--- OUTSIDE RECORDS SUMMARY | 2024-11-07 20:45 | XMS_ITS ---
Author Organization Unknown Address [address] [place], [place] [phone] Phone Care Team Providers Care Site Specialist Name Role Phone EMILY YAP Registered Nurse Unavailable TOMASA Giraldo Attending Unavailable KAREN CORDERO Primary Unavailable Results AMYLASE - Collect Date/Time: 07/13/2024 11:38 OSEI GIRALDO HUY Henning ID: [id number] [address] [place], [place], [phone] LOINC: Test Value Unit Reference Range Code Code System Flag AMYLASE 34 IU/L L=29 H=103 CBC WITH AUTO DIFF - Collect Date/Time: 07/13/2024 11:38 OSEI GIRALDO HUY Henning ID: [id number] [address] [place], [place], [phone] LOINC: Test Value Unit Reference Range Code Code System Flag WBC 6.0 K/uL L=4.5 H=11.0 RBC 5.55 M/uL L=4.20 H=5.40 H HEMOGLOBIN 15.1 g/dL L=12.0 H=16.0 HEMATOCRIT 46.0 % L=33.2 H=45.3 H MCV 82.9 fL L=79.5 H=98.1 MCH 27.2 pg L=27.0 H=31.0 MCHC 32.8 g/dL L=32.0 H=36.0 RDW 14.0 % L=11.5 H=14.5 PLATELETS 324 K/uL L=150 H=450 MPV 10.5 fL L=7.4 H=10.4 H %NEUT L=53.0 H=69.0 %LYMPH L=16.0 H=48.0 %MONO L=1.0 H=13.0 %EOS L=0.0 H=10.0 %BASO L=0.0 H=1.0 #NEUT L=2.4 H=7.6 #LYMPH L=0.2 H=5.4 MANUAL DIFF SEE BELOW SEG 80 % L=55 H=57 H BAND L=3 H=5 LYMPH 10 % L=16 H=48 L ATLY 7 % MONO 2 % L=3 H=7 L EOS 1 % L=1 H=3 BASO L=0 H=1 PROM MYEL META NRBC WBC MORPH NORMAL RBC MORPH NORMAL PLT MORPH NORMAL PLT EST NORMAL COMPLETE METABOLIC PANEL - C ollect Date/Time: 07/13/2024 11:38 OSEI GIRALDO HUY Henning ID: [id number] [address] [place] [address], [phone] LOINC: Test Value Unit Reference Range Code Code System Flag SODIUM 135 mmol/L L=136 H=145 L POTASSIUM 3.7 mmol/L L=3.5 H=5.1 CHLORIDE 102 mmol/L L=98 H=107 CO2 26 mmol/L L=21 H=31 GLUCOSE 88 mg/dL L=74 H=109 BUN 8 mg/dL L=7 H=25 CREATININE 0.78 mg/dL L=0.60 H=1.20 AGE 44 yrs EGFR 86 ml/min L=0 H=90 TOTAL PROTEIN 8.6 g/dL L=6.4 H=8.9 ALBUMIN 4.8 g/dL L=3.5 H=5.2 CALCIUM 9.9 mg/dL L=8.6 H=10.3 TOTAL BILI 0.9 mg/dL L=0.3 H=1.0 ALKALINE PHOS 52 IU/L L=34 H=104 SGOT/AST 11 IU/L L=13 H=39 L SGPT/ALT 7 IU/L L=7 H=52 LIPASE - Collect Date/Time: 07/13/2024 11:38 OSEI GIRALDO HUY Henning ID: [id number] [address] [place], [place], [phone] LOINC: Test Value Unit Reference Range Code Code System Flag LIPASE 22 IU/L L=11 H=82 XR ABDOMEN SERIES AND CHEST 1 VIEW - Completed: 07/13/2024 14:58 LOINC: [facility] [address] [place] [address] Name: CARMELA HILL Exam: XR ABDOMEN SERIES AND CHEST 1 VIEW Exam Date: 07/13/2024 : 1980 Acc#: [id number] Ordering: RUPALI RANDOLPH Referrer: EXAM DESCRIPTION: XR ABDOMEN SERIES AND CHEST 1 VIEW REASON FOR STUDY: RUQ pain and weight loss Duration: 3 months TECHNIQUE: Single radiographic view of the chest with supine and upright of the abdomen. COMPARISON: 04/03/2024 FINDINGS: The heart, mediastinum, and pulmonary vasculature are grossly stable. There is no definite evidence of a pneumothorax. There is no definite evidence of a focal consolidation or pleural effusion. There is no definite evidence of a bowel obstruction. There is a jdie-rp-qmhrfhwl amount of retained fecal debris in the colon. There is no definite evidence of free air under the diaphragm. The osseous structures are acutely grossly unremarkable. IMPRESSION: No definite evidence of acute cardiopulmonary process. No definite evidence of bowel obstruction. Bvms-qi-mouffwgm amount of retained fecal debris in the colon, which may be related to mild constipation. THIS IS AN ELECTRONICALLY VERIFIED FINAL REPORT 07/13/2024 12:25 PM - Electronically signed by Gil Chaudhary D.O. PS: PS Report ID: [id number] Reading Location: [id number] Social History Type Status Start Date End Date Code Code Syst em Smoking History Never smoker (Never Smoked) 356966277 SNOMED CT Sex Female Vital Signs Vital Sign Value Unit [place] Value [place] Unit Date/Time Recent/Initial? Code Code System Body Mass Index 28.32 kg/m2 07/13/2024 10:56 Initial 26794 -5 LOINC Systolic Blood Pressure 132 mm[Hg] 07/13/2024 12:45 Most Recent 8480- 6 LOINC Diastolic Blood Pressure 74 mm[Hg] 07/13/2024 12:45 Most Recent 8462- 4 LOINC Systolic Blood Pressure 134 mm[Hg] 07/13/2024 10:56 Initial 8480- 6 LOINC Diastolic Blood Pressure 78 mm[Hg] 07/13/2024 10:56 Initial 8462- 4 LOINC Body Surface Area 1.84 m2 07/13/2024 10:56 Initial 3140- 1 LOINC Height 162.560 0 cm 64.00 in 07/13/2024 10:56 Initial 8302- 2 LOINC O2 Saturation 99 % 2023 12:45 Most Recent 94511 -5 LOINC O2 Saturation 98 % 2023 10:56 Initial 31710 -5 LOINC Pulse 70.0 /min 07/13/2024 12:45 Most Recent 8867- 4 LOINC Pulse 77.0 /min 07/13/2024 10:56 Initial 8867- 4 LOINC Respiration 16 /min 07/13/20 12:45 Most Recent 9279- 1 LOINC Respiration 16 /min 07/13/20 10:56 Initial 9279- 1 LOINC Temperature 36.8 Altagracia 98.3 F 07/13/20 10:56 Initial 8310- 5 LOINC Weight 74.84 kg 165.00 lbs 07/13/2024 10:56 Initial 43604 -7 [facility] Medications Medication Start Date End Date Route Frequency Dose Code Code System Medication Instructions Home Meds Pantoprazole Sodium 40 MG Oral Tablet, Delayed Release 07/17/2024 10/11/2024 ORAL DAILY 40 MG 170030 RxNorm TA KE 40 MG ORAL DAILY FOR Gerd traMADol HCl 50MG Oral Tablet 07/17/2024 10/16/2024 ORAL EVERY 6 HOURS 1 TABLET 024557 RxNorm TAKE 1 TABLET ORAL EVERY 6 HOURS NEEDED FOR PAIN Zofran 4MG Oral Tablet 07/17/2024 10/11/2024 ORAL NEEDED EVERY 4 HOURS 1 TABLET 381567 RxNorm TAKE 1 TABLET ORAL NEEDED EVERY 4 HOURS Mylanta Maximum Strength 800 MG/10 ML-800 MG/10 ML-80 MG/10 ML Oral Suspension 07/17/2024 08/16/2024 ORAL NEEDED 10 mL 977041 RxNorm TAKE 10 mL ORAL NEEDED FOR Gerd metFORMIN HCl 500MG Oral Tablet 07/17/2024 10/11/2024 ORAL TWICE A DAY 500 MILLIGR AMS 626768 RxNorm TAKE 500 MILLIGRAM S ORAL TWICE A DAY FOR Diabetes Slynd 4 MG; NA Oral Tablet 07/17/2024 10/11/2024 ORAL DAILY 4 MILLIGR AMS 3627095 RxNorm TAKE 4 MILLIGRAM S ORAL DAILY FOR Control Metoprolol Tartrate 25MG Oral Tablet 07/17/2024 10/11/2024 ORAL TWICE A DAY 12.5 MILLIGR AMS 076405 RxNorm TAKE 12.5 MILLIGRAM S ORAL TWICE A DAY FOR Blood Pressure Lisinopril 10MG Oral Tablet 07/17/2024 08/16/2024 ORAL DAILY 10 MILLIGR AMS 938393 RxNorm TAKE 10 MILLIGRAM S ORAL DAILY FOR Blood Pressure Albuterol Sulfate HFA 0.09MG/1Actuatio n Inhalation Suspension 07/18/2024 10/11/2024 INHALATIO N NEEDED EVERY 4 HOURS 2 PUFF 8884017 RxNorm 2 PUFF INHALATIO N NEEDED EVERY 4 HOURS Cyclobenzaprine 10MG Oral Tablet 08/17/2024 10/11/2024 ORAL 1 TABLET 134640 RxNorm TAKE 1 TABLET ORAL Assessment You [...] Status Code Code System UTERINE FIBROID active 69751196 SNOM ED-CT CHEST PAIN active 39644705 SNOMED-CT GASTRITIS active 9593338 SNOMED-CT ABDOMINAL PAIN active 20108353 SNOME D-CT DEGENERATIVE DISORDER OF BONE active 199812390 SNOMED-CT ESSENTIAL HYPERTENSION active 1028528 0 SNOMED-CT CHRONIC KIDNEY DISEASE DUE TO TYPE 2 DIABETES MELLITUS active 011233514260 SNOMED-CT IRON DEFICIENCY active 48821201 SNOM ED-CT CARDIOMYOPATHY active 79885819 SNOME D-CT IMPAIRED FASTING GLYCAEMIA active 390 118769 SNOMED-CT SLEEP APNEA active 81264818 SNOMED-C T MILD INTERMITTENT ASTHMA active 60795 9007 SNOMED-CT HYPERTENSIVE DISORDER, SYSTEMIC ARTERIAL active 68346021 SNOMED-CT HIATAL HERNIA active 05968283 SNOMED -CT Allergies and Adverse Reactions Allergy Substance Reaction Severity Start Date Concern Status Co de Code System PENICILLIN LORENE A CHILD (SNOMED-CT: null) Moderate Active Plan of Treatment NEW PATIENT 09/17/2024 FOLLOW-UP 11/12/2024 FOLLOW-UP 12/31/2024 Encounters Encounter Diagnosis Start Date Code Code Sys tem Right upper quadrant pain 07/13/2024 SN OMED-CT Personal Care Team Section Performer Name Performer Role Active Date Inactive Da te Progress Notes [facility] SOY Henning 07/13/2024 12:55 EMERGENCY DEPARTMENT DISCHARGE INSTRUCTIONS You were seen in the Emergency Room at [facility] for:abd pain Discharge [x ] Home [ ] longterm [ ] Fpc [ ] Left AMA [ ] AMA disclosure signed [ ] Refused to sign disclosure [ ] Left without being seen [ ] Other: DISCHARGE MEDICATIONS: Special Instructions: drink mag citrate PLEASE FOLLOW-UP WITH YOUR PRIMARY CARE PROVIDER IN DAYS. Patient's Signature Date: Nurse Signature Date:
--- OUTSIDE RECORDS SUMMARY | 2024-11-07 20:45 | XMS_ITS ---
Author Organization Unknown Address [address] [place], [place] [phone] Phone Care Team Providers Care Agile Java Developer Name Role Phone QUINTON POND Attending Unavailable KAREN CORDERO Primary Unavailable Results TROPONIN HS - Collect Date/T kaylen: 08/16/2024 22:18 OSEI GIRALDO HUY Obregon O ID: [id number] [address] [place], [place], [phone] LOINC: Test Value Unit Reference Range Code Code System Flag TROPONIN HS 0.010 ng/mL L=0.000 H=0.030 COMPLETE METABOLIC PANEL - C ollect Date/Time: 08/16/2024 20:15 OSEI GIRALDO HUY Obregon O ID: [id number] [address] [place] [address], [phone] LOINC: Test Value Unit Reference Range Code Code System Flag SODIUM 135 mmol/L L=136 H=145 L POTASSIUM 3.3 mmol/L L=3.5 H=5.1 L CHLORIDE 106 mmol/L L=98 H=107 CO2 24 mmol/L L=21 H=31 GLUCOSE 102 mg/dL L=74 H=109 BUN 13 mg/dL L=7 H=25 CREATININE 0.71 mg/dL L=0.60 H=1.20 AGE 44 yrs EGFR > 90 ml/min L=0 H=90 TOTAL PROTEIN 7.6 g/dL L=6.4 H=8.9 ALBUMIN 4.1 g/dL L=3.5 H=5.2 CALCIUM 8.9 mg/dL L=8.6 H=10.3 TOTAL BILI 0.5 mg/dL L=0.3 H=1.0 ALKALINE PHOS 51 IU/L L=34 H=104 SGOT/AST 9 IU/L L=13 H=39 L SGPT/ALT 8 IU/L L=7 H=52 MAGNESIUM - Collect Date/Vinny e: 08/16/2024 20:15 OSEI Obregon O ID: [id number] [address] [place] [address], [phone] LOINC: Test Value Unit Reference Range Code Code System Flag MAGNESIUM 2.0 mg/dL L=1.6 H=2.4 CBC WITH AUTO DIFF - Collect Date/Time: 08/16/2024 20:15 OSEI Obregon O ID: [id number] [address] [place] [address], [phone] LOINC: Test Value Unit Reference Range Code Code System Flag WBC 7.0 K/uL L=4.5 H=11.0 RBC 5.28 M/uL L=4.20 H=5.40 HEMOGLOBIN 14.1 g/dL L=12.0 H=16.0 HEMATOCRIT 42.1 % L=33.2 H=45.3 MCV 79.7 fL L=79.5 H=98.1 MCH 26.7 pg L=27.0 H=31.0 L MCHC 33.5 g/dL L=32.0 H=36.0 RDW 13.2 % L=11.5 H=14.5 PLATELETS 295 K/uL L=150 H=450 MPV 10.4 fL L=7.4 H=10.4 %NEUT 51.0 % L=53.0 H=69.0 L %LYMPH 36.6 % L=16.0 H=48.0 %MONO 8.7 % L=1.0 H=13.0 %EOS 3.0 % L=0.0 H=10.0 %BASO 0.6 % L=0.0 H=1.0 #NEUT 3.6 K/uL L=2.4 H=7.6 #LYMPH 2.6 K/uL L=0.2 H=5.4 MANUAL DIFF NOT INDICATED WBC MORPH RBC MORPH PLT MORPH PLT EST TROPONIN HS - Collect Date/T kaylen: 08/16/2024 20:15 OSEI Henning ID: [id number] [address] [place], [place], [phone] LOINC: Test Value Unit Reference Range Code Code System Flag TROPONIN HS 0.010 ng/mL L=0.000 H=0.030 XR CHEST 2 VIEWS - Completed : 08/16/2024 19:53 LOINC: [address] [address] Name: CARMELA HILL Exam: XR CHEST 2 VIEWS Exam Date: 08/16/2024 : 1980 Acc#: [id number] Ordering: SALTY ALCANTARA Referrer: CONSUELO JONES EXAM DESCRIPTION: XR CHEST 2 VIEWS REASON FOR STUDY: CP, hypertension. No co sob. Duration: today TECHNIQUE: Frontal and lateral radiographic view(s) of the chest. COMPARISON: Chest radiograph dated 07/13/2024. FINDINGS: LUNGS: No focal opacity, pleural effusion, or pneumothorax. HEART/MEDIASTINUM: Cardiac silhouette normal in size. Mediastinal and hilar contours appear normal. LINES/TUBES: None. BONES: No acute osseous abnormality. IMPRESSION: No acute cardiopulmonary abnormality. THIS IS AN ELECTRONICALLY VERIFIED FINAL REPORT 08/16/2024 8:02 PM - Electronically signed by Lizandro Grewal M.D. MF: JUSTINE Report ID: [id number] Reading Location: [id number] Social History Type Status Start Date End Date Code Code Syst em Smoking History Never smoker (Never Smoked) 320919433 SNOMED CT Sex Female Vital Signs Vital Sign Value Unit [place] Value [place] Unit Date/Time Recent/Initial? Code Code System Body Mass Index 28.15 kg/m2 08/16/2024 19:23 Initial 89963 -5 LOINC Systolic Blood Pressure 166 mm[Hg] 08/16/2024 19:23 Initial 8480- 6 LOINC Diastolic Blood Pressure 83 mm[Hg] 08/16/2024 19:23 Initial 8462- 4 LOINC Body Surface Area 1.83 m2 08/16/2024 19:23 Initial 3140- 1 LOINC Height 162.560 0 cm 64.00 in 08/16/2024 19:23 Initial 8302- 2 INC O2 Saturation 99 % 2023 19:23 Initial 01194 -5 INC Pulse 58.0 /min 08/16/2024 19:23 Initial 8867- 4 LOINC Respiration 20 /min 08/16/20 19:23 Initial 9279- 1 INC Temperature 36.5 Altagracia 97.7 F 08/16/20 19:23 Initial 8310- 5 LOINC Weight 74.39 kg 164.00 lbs 08/16/2024 19:23 Initial 88444 -7 [facility] Medications Medication Start Date End Date Route Frequency Dose Code Code System Medication Instructions Home Meds Pantoprazole Sodium 40 MG Oral Tablet, Delayed Release 07/17/2024 10/11/2024 ORAL DAILY 40 MG 065673 RxNorm TA KE 40 MG ORAL DAILY FOR Gerd traMADol HCl 50MG Oral Tablet 07/17/2024 10/16/2024 ORAL EVERY 6 HOURS 1 TABLET 441335 RxNorm TAKE 1 TABLET ORAL EVERY 6 HOURS NEEDED FOR PAIN Zofran 4MG Oral Tablet 07/17/2024 10/11/2024 ORAL NEEDED EVERY 4 HOURS 1 TABLET 432426 RxNorm TAKE 1 TABLET ORAL NEEDED EVERY 4 HOURS Mylanta Maximum Strength 800 MG/10 ML-800 MG/10 ML-80 MG/10 ML Oral Suspension 07/17/2024 08/16/2024 ORAL NEEDED 10 mL 473247 RxNorm TAKE 10 mL ORAL NEEDED FOR Gerd metFORMIN HCl 500MG Oral Tablet 07/17/2024 10/11/2024 ORAL TWICE A DAY 500 MILLIGR AMS 961979 RxNorm TAKE 500 MILLIGRAM S ORAL TWICE A DAY FOR Diabetes Slynd 4 MG; NA Oral Tablet 07/17/2024 10/11/2024 ORAL DAILY 4 MILLIGR AMS 4853206 RxNorm TAKE 4 MILLIGRAM S ORAL DAILY FOR Control Metoprolol Tartrate 25MG Oral Tablet 07/17/2024 10/11/2024 ORAL TWICE A DAY 12.5 MILLIGR AMS 646187 RxNorm TAKE 12.5 MILLIGRAM S ORAL TWICE A DAY FOR Blood Pressure Lisinopril 10MG Oral Tablet 07/17/2024 08/16/2024 ORAL DAILY 10 MILLIGR AMS 705926 RxNorm TAKE 10 MILLIGRAM S ORAL DAILY FOR Blood Pressure Albuterol Sulfate HFA 0.09MG/1Actuatio n Inhalation Suspension 07/18/2024 10/11/2024 INHALATIO N NEEDED EVERY 4 HOURS 2 PUFF 1613405 RxNorm 2 PUFF INHALATIO N NEEDED EVERY 4 HOURS Cyclobenzaprine 10MG Oral Tablet 08/17/2024 10/11/2024 ORAL 1 TABLET 938014 RxNorm TAKE 1 TABLET ORAL Assessment You [...] Status Code Code System UTERINE FIBROID active 69409988 SNOM ED-CT CHEST PAIN active 73052778 SNOMED-CT GASTRITIS active 5145096 SNOMED-CT ABDOMINAL PAIN active 08394794 SNOME D-CT DEGENERATIVE DISORDER OF BONE active 834375963 SNOMED-CT ESSENTIAL HYPERTENSION active 5707762 0 SNOMED-CT CHRONIC KIDNEY DISEASE DUE TO TYPE 2 DIABETES MELLITUS active 912073671556 SNOMED-CT IRON DEFICIENCY active 83508014 SNOM ED-CT CARDIOMYOPATHY active 50114177 SNOME D-CT IMPAIRED FASTING GLYCAEMIA active 390 944799 SNOMED-CT SLEEP APNEA active 53492609 SNOMED-C T MILD INTERMITTENT ASTHMA active 02558 9007 SNOMED-CT HYPERTENSIVE DISORDER, SYSTEMIC ARTERIAL active 61458638 SNOMED-CT HIATAL HERNIA active 33553991 SNOMED -CT Allergies and Adverse Reactions Allergy Substance Reaction Severity Start Date Concern Status Co de Code System PENICILLIN WELTS A CHILD (SNOMED-CT: null) Moderate Active Plan of Treatment NEW PATIENT 09/17/2024 FOLLOW-UP 11/12/2024 FOLLOW-UP 12/31/2024 Encounters Encounter Diagnosis Start Date Code Code Sys tem Chest pain 08/16/2024 36435101 SNOMED-CT Personal Care Team Section Performer Name Performer Role Active Date Inactive Da te Progress Notes OSEI NEFFCandida Henning 08/16/2024 20:27 IV StartNPSG 1: Name and date of verified Specimen labeled in front of patient IV Start using aseptic technique. Explained procedure to patient/family. Site: Right AC Size: 22 gauge Solution and rate: NSL Venigard used to secure IV. Number of attempts & location(s): 1 Right AC Mechanism used for control of fluid: NSL Patient tolerated procedure well without any complications or complaints. OSEI NEFFCandida Henning 08/17/2024 00:04 IV Discontinuation IV Discontinuation per Gerald Parsons, CCT Explained procedure to patient. Using aseptic technique, removed tape and other securement measures, removed IV catheter, catheter intact, applied pressure to site, and applied bio-occlusive dressing over site. Patient tolerated procedure well without complications and site appeared within normal limits. discharge instructions provided. pt discharged ambulatory to [facility].
--- OUTSIDE RECORDS SUMMARY | 2024-11-07 20:45 | XMS_ITS ---
Author Organization Unknown Address [address], [place] [id number] Phone Care Team Providers Care Carboy Filler Name Role Phone RYANNE PUTNAM Registered Nurse Unavailable ABOCALEB ADERadha Attending Unavailable KAREN CORDERO Primary Unavailable Results CBC WITH AUTO DIFF - Collect Date/Time: 07/17/2024 19:59 OSEI Henning ID: [id number] [address], [place], [phone] LOINC: Test Value Unit Reference Range Code Code System Flag WBC 8.6 K/uL L=4.5 H=11.0 RBC 4.87 M/uL L=4.20 H=5.40 HEMOGLOBIN 13.2 g/dL L=12.0 H=16.0 HEMATOCRIT 40.2 % L=33.2 H=45.3 MCV 82.5 fL L=79.5 H=98.1 MCH 27.1 pg L=27.0 H=31.0 MCHC 32.8 g/dL L=32.0 H=36.0 RDW 13.6 % L=11.5 H=14.5 PLATELETS 298 K/uL L=150 H=450 MPV 10.3 fL L=7.4 H=10.4 %NEUT 92.6 % L=53.0 H=69.0 H %LYMPH 5.1 % L=16.0 H=48.0 L %MONO 2.0 % L=1.0 H=13.0 %EOS 0.0 % L=0.0 H=10.0 %BASO 0.1 % L=0.0 H=1.0 #NEUT 8.0 K/uL L=2.4 H=7.6 H #LYMPH 0.4 K/uL L=0.2 H=5.4 MANUAL DIFF NOT INDICATED WBC MORPH RBC MORPH PLT MORPH PLT EST COMPLETE METABOLIC PANEL - C ollect Date/Time: 07/17/2024 19:59 OSEI Obregon Milady ID: [id number] [address] [place] [address], [id number] LOINC: Test Value Unit Reference Range Code Code System Flag SODIUM 134 mmol/L L=136 H=145 L POTASSIUM 4.2 mmol/L L=3.5 H=5.1 CHLORIDE 104 mmol/L L=98 H=107 CO2 23 mmol/L L=21 H=31 GLUCOSE 135 mg/dL L=74 H=109 H BUN 9 mg/dL L=7 H=25 CREATININE 0.81 mg/dL L=0.60 H=1.20 AGE 44 yrs EGFR 82 ml/min L=0 H=90 TOTAL PROTEIN 7.0 g/dL L=6.4 H=8.9 ALBUMIN 4.1 g/dL L=3.5 H=5.2 CALCIUM 8.9 mg/dL L=8.6 H=10.3 TOTAL BILI 0.4 mg/dL L=0.3 H=1.0 ALKALINE PHOS 40 IU/L L=34 H=104 SGOT/AST 34 IU/L L=13 H=39 SGPT/ALT 32 IU/L L=7 H=52 Social History Type Status Start Date End Date Code Code Syst em Smoking History Never smoker (Never Smoked) 006279112 SNOMED CT Sex Female Vital Signs Vital Sign Value Unit Medicine [facility] Value Medicine [facility] Unit Date/Time Recent/Initial? Code Code System Body Mass Index 28.15 kg/m2 07/17/2024 19:35 Initial 47469 -5 LOINC Systolic Blood Pressure 140 mm[Hg] 07/17/2024 20:50 Most Recent 8480- 6 LOINC Diastolic Blood Pressure 78 mm[Hg] 07/17/2024 20:50 Most Recent 8462- 4 LOINC Systolic Blood Pressure 141 mm[Hg] 07/17/2024 19:35 Initial 8480- 6 LOINC Diastolic Blood Pressure 82 mm[Hg] 07/17/2024 19:35 Initial 8462- 4 LOINC Body Surface Area 1.83 m2 07/17/2024 19:35 Initial 3140- 1 LOINC Height 162.560 0 cm 64.00 in 07/17/2024 19:35 Initial 8302- 2 LOINC O2 Saturation 97 % 2023 20:50 Most Recent 78999 -5 LOINC O2 Saturation 98 % 2023 19:35 Initial 83622 -5 LOINC Pulse 79.0 /min 07/17/2024 20:50 Most Recent 8867- 4 LOINC Pulse 95.0 /min 07/17/2024 19:35 Initial 8867- 4 LOINC Respiration 20 /min 07/17/20 20:50 Most Recent 9279- 1 LOINC Respiration 20 /min 07/17/20 19:35 Initial 9279- 1 LOINC Temperature 36.7 Altagracia 98.0 F 07/17/20 19:35 Initial 8310- 5 LOINC Weight 74.39 kg 164.00 lbs 07/17/2024 19:35 Initial 83105 -7 [facility] Medications Medication Start Date End Date Route Frequency Dose Code Code System Medication Instructions Home Meds Pantoprazole Sodium 40 MG Oral Tablet, Delayed Release 07/17/2024 10/11/2024 ORAL DAILY 40 MG 461381 RxNorm TA KE 40 MG ORAL DAILY FOR Gerd traMADol HCl 50MG Oral Tablet 07/17/2024 10/16/2024 ORAL EVERY 6 HOURS 1 TABLET 929295 RxNorm TAKE 1 TABLET ORAL EVERY 6 HOURS NEEDED FOR PAIN Zofran 4MG Oral Tablet 07/17/2024 10/11/2024 ORAL NEEDED EVERY 4 HOURS 1 TABLET 286627 RxNorm TAKE 1 TABLET ORAL NEEDED EVERY 4 HOURS Mylanta Maximum Strength 800 MG/10 ML-800 MG/10 ML-80 MG/10 ML Oral Suspension 07/17/2024 08/16/2024 ORAL NEEDED 10 mL 088512 RxNorm TAKE 10 mL ORAL NEEDED FOR Gerd metFORMIN HCl 500MG Oral Tablet 07/17/2024 10/11/2024 ORAL TWICE A DAY 500 MILLIGR AMS 937174 RxNorm TAKE 500 MILLIGRAM S ORAL TWICE A DAY FOR Diabetes Slynd 4 MG; NA Oral Tablet 07/17/2024 10/11/2024 ORAL DAILY 4 MILLIGR AMS 5777907 RxNorm TAKE 4 MILLIGRAM S ORAL DAILY FOR Control Metoprolol Tartrate 25MG Oral Tablet 07/17/2024 10/11/2024 ORAL TWICE A DAY 12.5 MILLIGR AMS 375182 RxNorm TAKE 12.5 MILLIGRAM S ORAL TWICE A DAY FOR Blood Pressure Lisinopril 10MG Oral Tablet 07/17/2024 08/16/2024 ORAL DAILY 10 MILLIGR AMS 218938 RxNorm TAKE 10 MILLIGRAM S ORAL DAILY FOR Blood Pressure Albuterol Sulfate HFA 0.09MG/1Actuatio n Inhalation Suspension 07/18/2024 10/11/2024 INHALATIO N NEEDED EVERY 4 HOURS 2 PUFF 7047928 RxNorm 2 PUFF INHALATIO N NEEDED EVERY 4 HOURS Cyclobenzaprine 10MG Oral Tablet 08/17/2024 10/11/2024 ORAL 1 TABLET 298357 RxNorm TAKE 1 TABLET ORAL Assessment You [...] physician. Reason For Referral No Data Found Procedures Procedure Name Date Status Code Code Syste m Cholecystectomy 07/17/2024 completed [id number] SNOMEDCT Problems Problem Start Date Resolved Date Status Code Code System UTERINE FIBROID active 68749182 SNOM ED-CT CHEST PAIN active 52413130 SNOMED-CT GASTRITIS active 9349583 SNOMED-CT ABDOMINAL PAIN active 89829618 SNOME D-CT DEGENERATIVE DISORDER OF BONE active 936216855 SNOMED-CT ESSENTIAL HYPERTENSION active 5845608 0 SNOMED-CT CHRONIC KIDNEY DISEASE DUE TO TYPE 2 DIABETES MELLITUS active 357886684847 SNOMED-CT IRON DEFICIENCY active 71240141 SNOM ED-CT CARDIOMYOPATHY active 77547592 SNOME D-CT IMPAIRED FASTING GLYCAEMIA active 390 697537 SNOMED-CT SLEEP APNEA active 14323048 SNOMED-C T MILD INTERMITTENT ASTHMA active 96416 9007 SNOMED-CT HYPERTENSIVE DISORDER, SYSTEMIC ARTERIAL active 90397605 SNOMED-CT HIATAL HERNIA active 88193954 SNOMED -CT Allergies and Adverse Reactions Allergy Substance Reaction Severity Start Date Concern Status Co de Code System PENICILLIN WELTS A CHILD (SNOMED-CT: null) Moderate Active Plan of Treatment NEW PATIENT 09/17/2024 FOLLOW-UP 11/12/2024 FOLLOW-UP 12/31/2024 Encounters Encounter Diagnosis Start Date Code Code Sys tem Nausea with vomiting, unspecified 07/17/2024 SNOMED-CT Personal Care Team Section Performer Name Performer Role Active Date Inactive Da te
[2024-11-07 20:46] VITALS: BP 165/96; PULSE 91; RESP 20; TEMP 36.9; O2SAT 100
--- NOTE | 2024-11-07 23:34 | ED_ITS ---
HPI - General Adult General Chief complaint: Unspecified Stated complaint: BP high, tightness in left arm Time Seen by Provider: 11/07/24 23:08 History of Present Illness HPI narrative: This is a 44-year-old female presenting ED with concerns about her blood pressure. Patient is saw her primary care physician last week in the chest her blood pressure medications and her psychiatric medications. She has noticed that her blood pressures have been fluctuating throughout the day and has been taking it multiple times. It has been as high as 215/100. She called her primary care office after hours earlier today and they told her to take her nighttime meds 1 hour early which she did. She then came to the emergency department for evaluation. Patient is asymptomatic. Related Data Home Medications ?Medication ?Instructions ?Recorded ?Confirmed ?Last Taken ?Type lisinopril 10 mg tablet mg 10/25/24 Unknown History metoprolol tartrate 25 mg tablet mg 10/25/24 Unknown History pantoprazole 40 mg tablet,delayed mg PO 10/25/24 Unknown History release potassium chloride 10 mEq meq PO 10/25/24 Unknown History tablet,extended release Allergies Allergy/AdvReac Type Severity Reaction Status Date / Time Penicillins Allergy Unknown Hives / Verified 11/07/24 20:42 Red Face Exam Narrative: APPEARANCE: No apparent distress. Head: atraumatic. EYES: EOMI, NOSE: Atraumatic NECK: Trachea midline RESPIRATORY: No increased rate of breathing clear to auscultation CARDIOVASCULAR: RRR, no peripheral edema ABDOMINAL: Non-distended soft nontender no rebound MUSCULOSKELETAl: No obvious deformities NEURO: Alert. Moving 4/4 extremities SKIN:: Warm, dry. Normal color PSYCHIATRIC: Normal affect Course Vital Signs Vital signs: Vital Signs Temperature 98.4 F 11/07/24 20:46 Pulse Rate 91 11/07/24 20:46 Respiratory Rate 20 11/07/24 20:46 Blood Pressure 165/96 H 11/07/24 20:46 Pulse Oximetry 100 11/07/24 20:46 Oxygen Delivery Room Air 11/07/24 20:46 Temperature 98.4 F 11/07/24 20:46 Pulse Rate 91 11/07/24 20:46 Respiratory Rate 20 11/07/24 20:46 Blood Pressure 165/96 H 11/07/24 20:46 Pulse Oximetry 100 11/07/24 20:46 Oxygen Delivery Room Air 11/07/24 20:46 Medical Decision Making [facility] Narrative Medical decision making narrative: -Course: This is a 44-year-old female presenting ED for concerns about her blood pressure. Blood pressure and psychiatric meds recently changed and her blood pressures have been fluctuating throughout the day. She is not have any chest pain difficulty breathing or stroke symptoms. Blood pressure is not at a dangerous level here in the ED. Patient can follow-up with her primary care physician as needed. Vital Signs Vital Signs: Vital Signs Temperature 98.4 F 11/07/24 20:46 Pulse Rate 91 11/07/24 20:46 Respiratory Rate 20 11/07/24 20:46 Blood Pressure 165/96 H 11/07/24 20:46 Pulse Oximetry 100 11/07/24 20:46 Oxygen Delivery Room Air 11/07/24 20:46 Temperature 98.4 F 11/07/24 20:46 Pulse Rate 91 11/07/24 20:46 Respiratory Rate 20 11/07/24 20:46 Blood Pressure 165/96 H 11/07/24 20:46 Pulse Oximetry 100 11/07/24 20:46 Oxygen Delivery Room Air 11/07/24 20:46 Discharge Plan Discharge Clinical Impression: Asymptomatic hypertension Patient Disposition: Home, Self-Care Condition: Stable Instructions: Antibiotic Form, Hypertension (ED) Additional Instructions: Please follow-up with your primary care physician for further management of your blood pressure. Patient Language: Citizen Of [place] Prescriptions: No Action potassium chloride 10 mEq tablet extended release PO pantoprazole 40 mg tablet,delayed release (DR/EC) PO lisinopril 10 mg tablet metoprolol tartrate 25 mg tablet cephalexin 500 mg capsule 500 mg PO Q12H Qty: 10 0RF Follow-up/Referrals: Jet,MD Oren [Primary Care Provider] - 2 Days (Concerns about htn )
--- NOTE | 2024-11-07 23:38 | PC.NURSE ---
Patient is to be dc per JAIDEN Tesfaye.
--- OUTSIDE RECORDS SUMMARY | 2024-11-07 23:43 | XMS_ITS | Clinical Summary ---
Author Organization [facility] Address [address] [place] [address] Care Team Providers Care Field Marketing Associate Name Role Phone Oren Chaudhary MD Primary Care Provider [phone] Allergies Active Allergy Reactions Criticality Noted Date Comments Penicillins Hives,Unknown 02/20/2015 Pollen Extract Rash Medium 06/24/2013 Seasonal Unknown 06/24/2013 Medications Blood Gluc Meter Disp-Strips (BLOOD GLUCOSE METER DISPOSABLE) DeviceIndications :Diabetes 1.5, managed as type 2 ([facility]),Type 2 diabetes mellitus without complication, without long-term current use of insulin ([facility]),Medicati on management 1 strip by Does not apply route daily. 100 each 022 Active Lancets MiscIndications:D iabetes 1.5, managed as type 2 ([facility]),Type 2 diabetes mellitus without complication, without long-term current use of insulin ([facility]),Medicati on management 1 each by Does not apply route daily. 100 each 022 Active lisinopril (PRINIVIL) 10 MG tabletIndications :Primary hypertension Take 1 tablet (10 mg total) by mouth daily. 90 tablet 3 023 Active Blood Glucose Monitoring Suppl DeviceIndications :Medication management,Diabet es 1.5, managed as type 2 ([facility]),Type 2 diabetes mellitus without complication, without long-term current use of insulin ([facility]) 1 each by Does not apply route daily. 1 each 023 Active Glucose Blood (ONETOUCH VERIO) test stripIndications: Diabetes 1.5, managed as type 2 ([facility]) USE one (1) STRIP to test blood sugar DAILY. 100 strip 024 Active metFORMIN (GLUCOPHAGE) 500 MG tablet Take 1 tablet (500 mg total) by mouth daily with breakfast. Active aspirin 81 MG chewable tablet Chew 1 tablet (81 mg total) by mouth daily. 90 tablet 3 024 2024 Active Semaglutide (RYBELSUS) 7 MG TabIndications:Di abetes Mellitus TAKE 7 MG BY MOUTH DAILY. INDICATIONS: DIABETES 30 tablet 1 Active Additional Information Patient not taking.Reported on 03/04/2024 pantoprazole EC (PROTONIX) 40 MG tabletIndications :Gastroesophageal reflux disease with esophagitis without hemorrhage Take 1 tablet (40 mg total) by mouth daily. 30 tablet 5 024 Active metoprolol tartrate (LOPRESSOR) 25 MG tabletIndications :Primary hypertension Take 0.5 tablets (12.5 mg total) by mouth 2 (two) times daily. 90 tablet 024 Active dicyclomine (BENTYL) 10 MG capsule Take 1 capsule (10 mg total) by mouth 4 (four) times daily as needed (abdominal pain). 30 capsule 024 Active sucralfate (CARAFATE) 1 G tablet Take 1 tablet (1 g total) by mouth 4 (four) times daily as needed (abdominal pain). 120 tablet 024 Active fluticasone propionate (FLONASE) 50 MCG/ACT nasal spray 2 sprays by Each Nostril route 2 (two) times daily as needed (congestion and sinusitis). 18 mL 024 Active hydrocortisone 2.5 % cream Apply topically 2 (two) times daily. 30 g 1 025 Active ondansetron (ZOFRAN-ODT) 4 MG disintegrating tablet Take 1 tablet (4 mg total) by mouth every 8 (eight) hours as needed for Nausea. 20 tablet 025 Active ondansetron (ZOFRAN-ODT) 4 MG disintegrating tablet Take 1 tablet (4 mg total) by mouth every 8 (eight) hours as needed for Nausea. 12 tablet 024 2024 Discontinued benzonatate (TESSALON) 200 MG capsule Take 1 capsule (200 mg total) by mouth 3 (three) times daily as needed for Cough. 40 capsule 024 2024 Discontinued Dextromethorphan- guaiFENesin 20-400 MG Tab Take 1 tablet by mouth every 6 (six) hours as needed (cough, congestion). 40 tablet 024 2024 Discontinued azithromycin (ZITHROMAX) 250 MG tablet Take 2 tablets by mouth on day one then 1 daily for four days. 6 tablet 2024 Discontinued Active Problems Problem Noted Date Diagnosed Date Nipple discharge 02/14/2023 Abnormal mammogram of left breast 02/14/2023 Obesity (BMI 30.0-34.9) 02/14/2023 Diabetes 1.5, managed as type 2 ([facility] ) 01/26/2022 Systolic ejection murmur 04/10/2019 Sleep apnea 08/31/2016 Snoring 08/31/2016 Acid reflux 08/26/2015 BMI 33.0-33.9,adult 08/26/2015 Hypertension 08/26/2015 Resolved Problems Problem Noted Date Diagnosed Date Resolved Date Episode of dizziness 04/10/2019 022 Contact dermatitis 04/04/2018 Overview (04/10/2019): Date Onset: 04/04/2018 Encounter for screening mamm ogram for malignant neoplasm of breast 08/26/2015 12/13/2021 Scabies 02/20/2015 04/28/2022 Overview (04/10/2019): Date Onset: 02/20/2015 Encounters Date Type Department Care Team Description 10/25/2024 7:19 AM MEDICAL INSTRUCTOR - 10/25/2024 7:55 AM MEDICAL INSTRUCTOR Emergency [facility] Emergency Services [facility] [place]note 2] [place] [address] Rupali Bland MD Medical Problem Discharge Disposition: Home or Self Care (Routine Discharge) 10/25/2024 Travel 10/23/2024 9:12 AM MEDICAL INSTRUCTOR - 10/23/2024 12:32 PM [facility] Emergency [facility] Emergency [address] [place] [address] Jewel Bartholomew MD Medical Problem Discharge Disposition: Home or Self Care (Routine Discharge) 10/23/2024 Travel 10/08/2024 2:49 PM MEDICAL INSTRUCTOR - 10/08/2024 3:50 PM [facility] Emergency [facility] Emergency [address] [place] [address] Jewel Bartholomew MD Rash Discharge Disposition: Home or Self Care (Routine Discharge) 10/08/2024 Travel 09/27/2024 3:11 PM MEDICAL INSTRUCTOR - 09/27/2024 6:25 PM [facility] Emergency [facility] Emergency Room [address] [place] [id number] Vitaliy Peterson MD Medical Problem Discharge Disposition: Home or Self Care (Routine Discharge) 09/27/2024 Travel 09/26/2024 8:29 AM MEDICAL INSTRUCTOR - 09/26/2024 12:58 PM [facility] Emergency [facility] Emergency [address] [place] [address] Rupali Bland MD Tachycardia Discharge Disposition: Home or Self Care (Routine Discharge) 09/26/2024 Travel 09/24/2024 8:58 PM MEDICAL INSTRUCTOR - 09/24/2024 9:57 PM [facility] Emergency [address] [place] [address] Jewel Bartholomew MD Urinary Symptoms Discharge Disposition: Home or Self Care (Routine Discharge) 09/24/2024 Travel 09/12/2024 8:03 PM MEDICAL INSTRUCTOR - 09/12/2024 8:48 PM [facility] Emergency [address] [place] [address] Rupali Rudd DO Foot Pain Discharge Disposition: Home or Self Care (Routine Discharge) 09/12/2024 Travel 08/16/2024 6:01 AM MEDICAL INSTRUCTOR - 08/16/2024 8:44 AM [facility] Emergency [facility] Emergency [address] [place] [address] Rupali Rudd, Chest Pain (palpitations) Discharge Disposition: Home or Self Care (Routine Discharge) 08/16/2024 Travel 08/09/2024 10:24 AM MEDICAL INSTRUCTOR - 08/09/2024 11:39 AM MEDICAL INSTRUCTOR Emergency [facility] Emergency Services [address] [place] [address] oNel Swanson MD Sinus Problem Discharge Disposition: Home or Self Care (Routine Discharge) 08/09/2024 Travel from Last 3 Months Immunizations Name Administration Dates Next Due Dtp 10/30/1987, 6,05/23/1986,04/06/19 83 Fluzone Adult - >Age 3 (Pref illed Syringe) 04/10/2019(Deferred: Patient Refused) MMR 05/11/1991,04/06/1983 Opv 10/30/1987, 6,05/23/1986,04/06/19 83 Family History Medical History Relation Comments No Known Problems Brother No Known Problems Daughter bipolar Father No Known Problems Maternal Aunt No Known Problems Maternal Grandfather Heart Maternal Grandmother Brain cancer Maternal Uncle Liver cancer Maternal Uncle Breast Cancer Mother Dementia Mother Diabetes type II Mother Parkinson's Disease Mother No Known Problems Other No Known Problems Paternal Aunt No Known Problems Paternal Grandfather Diabetes Paternal Grandmother No Known Problems Sister Autism spectrum disorder Son Depression Son Relation Status Comments Brother Daughter Father Alive Maternal Aunt Maternal Grandfather Maternal Grandmother Maternal Uncle Mother Other Paternal Aunt Paternal Grandfather Paternal Grandmother Sister Son Social History Tobacco Use Types Packs/Day Years Used Date Smoking Tobacco: Never Smokeless Tobacco: Never Tobacco Cessation:Counseling Given: No Alcohol Use Standard Drinks/Week Comments No 0 (1 standard drink = 0.6 oz pur e alcohol) AUDIT-C Answer Date Recorded Frequency of Alcohol Consumption Never 04/10/2019 Average Number of Drinks Not on file 019 Frequency of Binge Drinking Not on file 03/28 PHQ-2 Answer Date Recorded Patient Health Questionnaire-2 Score 0 01/29/2024 Education Answer Date Recorded What is the highest level of school you have completed or the highest degree you have received? High school graduate 04/10/2019 Comments No Sex and Gender Information Value Date Recorded Sex Assigned at Female 09/13/2024 6:54 AM MEDICAL INSTRUCTOR Legal Sex Female 8:36 PM CDT Gender Identity Not on file Sexual Orientation Not on file Last Filed Vital Signs Vital Sign Reading Time Taken Comments Blood Pressure 144/80 10/25/2024 7:33 AM MEDICAL INSTRUCTOR Pulse 90 10/25/2024 7:33 AM MEDICAL INSTRUCTOR Temperature 36.4 C (97.6 F) 10/25/2024 7:33 AM MEDICAL INSTRUCTOR Respiratory Rate 16 10/25/2024 7:33 AM MEDICAL INSTRUCTOR Oxygen Saturation 100% 10/25/2024 7:33 AM MEDICAL INSTRUCTOR Inhaled Oxygen Concentration - - Weight 72.6 kg (160 lb) 10/25/2024 7:33 AM MEDICAL INSTRUCTOR Height 162.6 cm (5' 4 ) 10/25/2024 7:33 AM MEDICAL INSTRUCTOR Body Mass Index 27.46 10/25/2024 7:33 AM MEDICAL INSTRUCTOR Plan of Treatment Upcoming Encounters Date Type Department Care Team ([facility] st Contact Info) Description 03/12/2025 8:30 AM CDT Office Visit [facility] [place] [phone] Skip Marmolejo MD [address] [address] Health Maintenance Due Date Last Done Comments Kidney Health Evaluation 1980 Annual Physical 1984 Pneumococcal Vaccine: Pediatrics (0 to 5 Years) and At-Risk Patients (6 to 64 Years) (1 of 2 - PCV) 1987 DTaP, Tdap and Td Vaccines (1 - Tdap) 2000 10/30/1987, 08/08/1986, 05/23/1986, Additional history exists Hepatitis B Vaccines (1 of 3 - 19+ 3-dose series) 2000 Cervical Cancer Screening Pap Smear (Age 30 to 64) Every 3 Years 06/28/2016 06/28/2013 Lipid Panel 09/27/2023 09/27/2022 Hemoglobin A1C 04/05/2024 10/06/2023, 11/0 03/2023, 02/14/2023, Additional history exists COVID-19 Vaccine ( season) 2024 Influenza Adult (#1) 2024 PHQ-2 (Physician [place]) 08/28/2024 01/29/2024 Mammogram Screening 09/07/2025 09/07/2023, 09/07/2023, 02/27/2023, Additional history exists Diabetes: Retinopathy Eye Exam 09/19/2025 09/19/2023 Cervical Cancer Screening Pap with HPV Testing (Age 30 to 64) Every 5 Years 04/07/2027 04/07/2022 Cervical Cancer Screening with HPV 04/07/2027 Hepatitis C 02/14/2053 Postponed from 1999 (Patient Refused) HPV Vaccines Aged Out No longer eligi ble based on patient's age to complete this topic Meningococcal B Vaccine Aged Out No l onger eligible based on patient's age to complete this topic Meningococcal Vaccine Aged Out No ishmael dipesh eligible based on patient's age to complete this topic RSV Immunizations Under 20 Months Aged Out No longer eligible based on patient's age to complete this topic Procedures Procedure Name Priority Date/Time Associated Diagnosis Comments TROPONIN, QUANT TIMED 09/27/2024 5:15 PM MEDICAL INSTRUCTOR PRO-BRAIN NATRIURETIC PEPTIDE STAT 09/27/2024 3:30 PM MEDICAL INSTRUCTOR LIPASE STAT 09/27/2024 3:30 PM MEDICAL INSTRUCTOR TROPONIN, QUANT STAT 09/27/2024 3:30 PM MEDICAL INSTRUCTOR COMPREHENSIVE METABOLIC PANEL STAT 09/27/2024 3:30 PM MEDICAL INSTRUCTOR D-DIMER, QUANTITATIVE STAT 09/27/2024 3:30 PM MEDICAL INSTRUCTOR PARTIAL THROMBOPLASTIN TIME,PTT STAT 09/27/2024 3:30 PM MEDICAL INSTRUCTOR PROTHROMBIN TIME, VENOUS STAT 09/27/2024 3:30 PM MEDICAL INSTRUCTOR CBC W/DIFF AUTOMATED STAT 09/27/2024 3:30 PM MEDICAL INSTRUCTOR ECG 12-LEAD Routine 09/27/2024 3:19 PM MEDICAL INSTRUCTOR ETHANOL STAT 09/26/2024 10:15 AM MEDICAL INSTRUCTOR TSH W/REFLEX STAT 09/26/2024 10:15 AM MEDICAL INSTRUCTOR TROPONIN, QUANT STAT 09/26/2024 10:15 AM MEDICAL INSTRUCTOR COMPREHENSIVE METABOLIC PANEL STAT 09/26/2024 10:15 AM MEDICAL INSTRUCTOR XR CHEST PORTABLE STAT 09/26/2024 8:5 1 AM MEDICAL INSTRUCTOR WBC WI DIFFERENTIAL TIMED 09/26/2024 8 :50 AM MEDICAL INSTRUCTOR CBC W/DIFF AUTOMATED STAT 09/26/2024 8:50 AM MEDICAL INSTRUCTOR ECG 12-LEAD Routine 09/26/2024 8:42 AM MEDICAL INSTRUCTOR URINALYSIS AUTO DIP STAT 09/24/2024 9 :26 PM MEDICAL INSTRUCTOR INFLUENZA A & B STAT 08/16/2024 7:00 AM MEDICAL INSTRUCTOR CORONAVIRUS (COVID 19) STAT 7:00 AM MEDICAL INSTRUCTOR XR CHEST PORTABLE STAT 08/16/2024 6:3 4 AM MEDICAL INSTRUCTOR ECG 12-LEAD STAT 08/16/2024 6:13 AM MEDICAL INSTRUCTOR TROPONIN, QUANT STAT 08/16/2024 6:10 AM MEDICAL INSTRUCTOR COMPREHENSIVE METABOLIC PANEL STAT 08/16/2024 6:10 AM MEDICAL INSTRUCTOR CBC W/DIFF AUTOMATED STAT 08/16/2024 6:10 AM MEDICAL INSTRUCTOR HEMOGLOBIN, GLYCOSYLATED Routine 10/06/2023 Type 2 diabetes mellitus without complication, without long-term current use of insulin DIABETIC RETINOPATHY EXAM (NEGATIVE)(SCAN ORDER) Routine 09/19/2023 MAMMOGRAM GENERIC (SCAN ORDER) 09/07/2023 LIPID PANEL Routine 09/27/2022 9:26 AM MEDICAL INSTRUCTOR Mixed hyperlipidemia OUTSIDE CYTOPATH CERV/VAG INTERPRET (PAP) 04/07/2022 THINPREP IMAGING PAP REFLEX HPV MRNA E6/E7, CHLAM & GC Routine 06/28/2013 5:07 PM CDT from Last 3 Months or Most Recently Relevant to Health Maintenance Results * TROPONIN, QUANT (09/27/2024 5:15 PM MEDICAL INSTRUCTOR) Only the most recent of4 resultswithin the time period is included. Pathologist [facility] TROPONIN I HIGH SENSITIVITY 5 0 - 50 ng/L 09/27/2024 5:44 PM MEDICAL INSTRUCTOR [facility] Comment: HIGH DOSES OF BIOTIN, TROPONIN-SPECIFIC AUTOANTIBODIES, AND ANTIBODY THERAPY CONTAINING HAMA MAY INTERFERE WITH THIS TEST RESULT. CORRELATION TO CLINICAL HISTORY AND PRESENTATION RECOMMENDED. 09/27/2024 5:15 PM MEDICAL INSTRUCTOR us Vitaliy Peterson MD LABORATORY Final Result [facility] [address] [place] [address], [place] [phone] * (ABNORMAL) PRO-BRAIN NATRIURETIC PEPTIDE (09/27/2024 3:30 PM MEDICAL INSTRUCTOR) Pathologist [facility] PRO-B TYPE NATRIURETIC PEPTIDE 126(H) <125 PG/ML 09/27/2024 4:17 PM MEDICAL INSTRUCTOR [facility] Comment: CUT POINTS ESTABLISHED BY [employer] ON NT PROBNP (ICON) STUDY (2006). AGE INDEPENDENT: <300 PG/ML HAS A 99% NEGATIVE PREDICTIVE VALUE FOR EXCLUDING ACUTE CHF <50 YEARS: >450 PG/ML IS CONSISTENT WITH ACUTE CHF 50-75 YEARS: >900 PG/ML IS CONSISTENT WITH ACUTE CHF >75 YEARS: >1800 PG/ML IS CONSISTENT WITH ACUTE CHF IN PATIENTS WITH RENAL INSUFFICIENCY (GFR <60), >1200 PG/ML YIELDS A DIAGNOSTIC SENSITIVITY AND SPECIFICITY OF 89% AND 72% FOR ACUTE CHF. 09/27/2024 3:30 PM MEDICAL INSTRUCTOR us Vitaliy Peterson MD LABORATORY Final Result Performing Organization Address [facility] Co de Phone Number [facility] [address] [place] [address], [place] [phone] * (ABNORMAL) PARTIAL THROMBOPLASTIN TIME,PTT (09/27/2024 3:30 PM MEDICAL INSTRUCTOR) PTT 37.2(H) 27.0 - 36.8 SEC 09/27/2024 4:23 PM MEDICAL INSTRUCTOR [facility] 09/27/2024 3:30 PM MEDICAL INSTRUCTOR us Vitaliy Peterson MD LABORATORY Final Result Performing Organization Address [facility] de Phone Number [facility] [address] [place] [address], [place] [phone] * PROTIME/INR, VENOUS (09/27/2024 3:30 PM MEDICAL INSTRUCTOR) PROTIME 12.4 9.1 - 12.4 SEC 09/27/2024 4:23 PM MEDICAL INSTRUCTOR [facility] INR 1.1 09/27/2024 4:23 PM MEDICAL INSTRUCTOR [facility] Comment: Recommend INR ranges for Oral Anticoagulant Therapy: Mechanical Cardiac Values 2.5-3.5 All others indication 2.0-3.0 09/27/2024 3:30 PM MEDICAL INSTRUCTOR us Vitaliy Peterson MD LABORATORY Final Result Performing Organization Address [facility] Co de Phone Number [facility] [address] [place] [address], [place] [phone] * (ABNORMAL) COMPREHENSIVE METABOLIC PANEL (09/27/2024 3:30 PM [facility]) Only the most recent of3 resultswithin the time period is included. [facility] Signature GLUCOSE 132(H) 70 - 99 MG/DL 09/27/2024 4:17 PM [facility] BUN 11 7 - 18 MG/DL 09/27/2024 4:17 PM [facility] CREATININE S/P/B 0.97 0.55 - 1.02 MG/DL 09/27/2024 4:17 PM [facility] SODIUM S/P/B 138 136 - 145 MMOL/L 09/27/2024 4:17 PM [facility] POTASSIUM S/P/B 3.9 3.5 - 5.1 MMOL/L 09/27/2024 4:17 PM [facility] CHLORIDE S/P/B 102 100 - 108 MMOL/L 09/27/2024 4:17 PM [facility] CO2 24.5 21 - 32 MMOL/L 09/27/2024 4:17 PM [facility] CALCIUM S/P/B 9.5 8.5 - 10.1 MG/DL 09/27/2024 4:17 PM [facility] BILIRUBIN TOTAL S/P/B 0.4 0.2 - 1.2 MG/DL 09/27/2024 4:17 PM [facility] TOTAL PROTEIN S/P/B 8.5(H) 6.4 - 8.2 G/DL 09/27/2024 4:17 PM [facility] ALBUMIN S/P/B 4.3 3.4 - 5.0 G/DL 09/27/2024 4:17 PM [facility] AST 23 15 - 37 U/L 09/27/2024 4:17 PM [facility] ALT 22 14 - 55 U/L 09/27/2024 4:17 PM [facility] ALKALINE PHOSPHATASE S/P/B 70 50 - 136 U/L 09/27/2024 4:17 PM [facility] ANION GAP 11.5 5 - 15 MMOL/L 09/27/2024 4:17 PM [facility] BUN CREATININE RATIO 11.3 6 - 26 09/27/2024 4:17 PM [facility] A/G RATIO 1.0 1.0 - 2.0 RATIO 09/27/2024 4:17 PM [facility] GFR ESTIMATE 74(L) >90 ML/MIN/1.7 3 M2 09/27/2024 4:17 PM [facility] Comment: NOTE: eGFR is not calculated for patients <18 years of age. This is an estimated GFR calculation using the new CKD EPI creatinine equation without race and so does not require a correction factor for race. This estimated GFR should not be used for calculating drug doses. 09/27/2024 3:30 PM MEDICAL INSTRUCTOR Vitaliy Peterson MD LABORATORY Final Result [facility] [address] [place] [address], * D-DIMER, QUANTITATIVE (09/27/2024 3:30 PM MEDICAL INSTRUCTOR) Pathologist [facility] D-DIMER 245 0 - 500 ng{FEU}/mL 09/27/2024 4:23 PM MEDICAL INSTRUCTOR [facility] Comment: D-Dimer values less than or equal to 500 ng/mL FEU have a negative predictive value of >95% for exclusion of deep vein thrombosis and pulmonary embolism. In patients over 50 (who tend to have higher normal baseline D-Dimer values), recent studies suggest age-adjusted D-Dimer cutoff values (calculated as: age [years] x 10 ng/mL) result in equivalent outcomes and no additional false negative findings. 09/27/2024 3:30 PM MEDICAL INSTRUCTOR us Vitaliy Peterson MD LABORATORY Final Result [facility] [address] [place] [id number], [place] [phone] * (ABNORMAL) CBC W/DIFF AUTOMATED (09/27/2024 3:30 PM MEDICAL INSTRUCTOR) Only the most recent of3 resultswithin the time period is included. WBC 6.03 4.4 - 11.0 x10'3/uL 09/27/2024 3:58 PM MEDICAL INSTRUCTOR [facility] RBC 5.46(H) 4.50 - 5.10 x10'6/uL 09/27/2024 3:58 PM [facility] HGB 14.6 12.3 - 15.3 G/DL 09/27/2024 3:58 PM [facility] HCT 44.6 35.9 - 44.6 % 09/27/2024 3:58 PM [facility] MCV 81.7 80.0 - 96.0 FL 09/27/2024 3:58 PM [facility] MCH 26.7 25.3 - 30.9 PG 09/27/2024 3:58 PM [facility] MCHC 32.7 31.0 - 34.1 G/DL 09/27/2024 3:58 PM [facility] RDW 13.8 12.4 - 15.1 % 09/27/2024 3:58 PM [facility] PLT 321 151 - 353 x10'3/uL 09/27/2024 3:58 PM [facility] MPV 10.5 9.6 - 12.0 FL 09/27/2024 3:58 PM [facility] RBC MORPHOLOGY NORMAL 09/27/2024 3:58 PM [facility] PLT MORPH. NORMAL 09/27/2024 3:58 PM [facility] WBC MORPHOLOGY NORMAL 09/27/2024 3:58 PM MEDICAL INSTRUCTOR [facility] LYMPHOCYTES % 34.7 15.8 - 45.0 % 09/27/2024 3:58 PM [facility] NEUTROPHILS % 54.6 42.1 - 71.9 % 09/27/2024 3:58 PM [facility] MONOCYTES % 7.5 5.7 - 12.5 % 09/27/2024 3:58 PM [facility] EOSINOPHILS 2.5 0.0 - 5.6 % 09/27/2024 3:58 PM [facility] BASOPHILS 0.5 0.0 - 1.3 % 09/27/2024 3:58 PM [facility] ABS. NEUTROPHILS 3.30 1.40 - 6.00 x10'3/uL 09/27/2024 3:58 PM [facility] IMMATURE GRANS % 0.2 0.0 - 0.5 % 09/27/2024 3:58 PM [facility] ABS. LYMPHOCYTES 2.09 0.80 - 4.70 x10'3/uL 09/27/2024 3:58 PM [facility] 09/27/2024 3:30 PM MEDICAL INSTRUCTOR us Vitaliy Peterson MD LABORATORY Final Result [facility] [address] [place] [address], * LIPASE (09/27/2024 3:30 PM MEDICAL INSTRUCTOR) LIPASE 46 16 - 77 UNITS/L 09/27/2024 4:17 PM MEDICAL INSTRUCTOR [facility] 09/27/2024 3:30 PM MEDICAL INSTRUCTOR us Vitaliy Peterson MD LABORATORY Final Result [facility] [address] [place] [address], [place] [phone] * ECG 12 lead (09/27/2024 3:19 PM MEDICAL INSTRUCTOR) Only the most recent of3 resultswithin the time period is included. 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1980 Requested By: VITALIY PETERSON Order Number: [id number] [place] MD: Fabricio Wilde Measurements Intervals Schroeder Rate: 74 P: 40 NC: 143 QRS: -35 QRSD: 119 T: 73 QT: 385 QTc: 427 Interpretive Statements SINUS RHYTHM POSSIBLE LEFT ATRIAL ENLARGEMENT [-0.1mV P-WAVE IN V1/V2] LEFT AXIS DEVIATION [QRS AXIS < -30] LEFT VENTRICULAR HYPERTROPHY AND ST-T CHANGE [VOLTAGE CRITERIA PLUS ST/T ABNORMALITY] Compared to ECG 09/26/2024 08:42:35 Left ventricular hypertrophy now present ST (T wave) deviation now present Myocardial infarct finding no longer present CAL INSTRUCTOR Procedure Note Fabricio Wilde MD - 09/28/2024 [facility] Test Date: 2024-09-27 Pat Name: CARMELA HILL Department: 85 Room: Gender: Female 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1980 Requested By: VITALIY PETERSON Order Number: [id number] Elvia MD: Fabricio Wilde Measurements Intervals Schroeder Rate: 74 P: 40 NC: 143 QRS: -35 QRSD: 119 T: 73 QT: 385 QTc: 427 Interpretive Statements SINUS RHYTHM POSSIBLE LEFT ATRIAL ENLARGEMENT [-0.1mV P-WAVE IN V1/V2] LEFT AXIS DEVIATION [QRS AXIS < -30] LEFT VENTRICULAR HYPERTROPHY AND ST-T CHANGE [VOLTAGE CRITERIA PLUSST/T ABNORMALITY] Compared to ECG 09/26/2024 08:42:35 Left ventricular hypertrophy now present ST (T wave) deviation now present Myocardial infarct finding no longer present CAL INSTRUCTOR Vitaliy Peterson MD ECG ORDERABLES Final Result Performing Organization Address [facility]/ZIP Co de Phone Number [facility] ([facility]) RAD * TSH W/REFLEX (09/26/2024 10:15 AM MEDICAL INSTRUCTOR) Pathologist [facility] TSH 1.830 0.358 - 3.74 uIU/ML 09/26/2024 2:40 PM MEDICAL INSTRUCTOR [facility] Comment: HIGH DOSES OF BIOTIN MAY INTERFERE WITH THIS TEST RESULT. CORRELATION TO CLINICAL HISTORY AND PRESENTATION RECOMMENDED. FREE T4 NOT INDICATED 09/26/2024 10:1 5 AM MEDICAL INSTRUCTOR Rupali Bland MD LABORATORY Final Resul t Performing Organization Address City/[facility]/ZIP Co de Phone Number [facility] [address] [place] [address], [place] [phone] * ETHANOL (09/26/2024 10:15 AM MEDICAL INSTRUCTOR) ALCOHOL S/P/B <0.003 <0.003 G/DL 09/26/2024 12:09 PM MEDICAL INSTRUCTOR [facility] 09/26/2024 10:1 5 AM MEDICAL INSTRUCTOR us Rupali Bland MD LABORATORY Final Resul t [address] [place] [address], [place] * XR CHEST PORTABLE (09/26/2024 8:51 AM MEDICAL INSTRUCTOR) Only the most recent of2 resultswithin the time period is included. Anatomical Region Laterality Modality Chest Computed Tomogra phy 09/26/2024 8:54 AM MEDICAL INSTRUCTOR Impressions 09/26/2024 8:55 AM MEDICAL INSTRUCTOR IMPRESSION: 1) No radiographic evidence of active disease the chest. Ordered By: RUPALI BLAND Interpreted By: Barney Munson MD, 09/26/2024 8:54 AM Narrative 09/26/2024 8:55 AM MEDICAL INSTRUCTOR [address] [place] [address] Examination: XR CHEST PORTABLE Exam time: 09/26/2024 8:40 AM Clinical history: Palpitations Comparison: 08/16/2024 Technique: AP chest Findings: Heart size within normal limits. Pulmonary vasculature unremarkable. No significant acute pulmonary parenchymal opacity. No pleural effusion. No hyperinflation. Procedure Note Barney Munson MD - 09/26/[address] [place] [address] Examination: XR CHEST PORTABLE Exam time: 09/26/2024 8:40 AM Clinical history: Palpitations Comparison: 08/16/2024 Technique: AP chest Findings: Heart size within normal limits. Pulmonary vasculatureunremarkable. No significant acute pulmonary parenchymal opacity. Nopleural effusion. No hyperinflation. IMPRESSION: 1) No radiographic evidence of active disease the chest. Ordered By: RUPALI BLAND Interpreted By: Barney Munson MD, 09/26/2024 8:54 AM Rupali Bland MD GENERAL IMAGING Final Resul t * WBC WI DIFFERENTIAL (09/26/2024 8:50 AM MEDICAL INSTRUCTOR) WBC 5.41 4.50 - 11.00 x10'3/uL 09/26/2024 9:24 AM [facility] SEG NEUTROPHILS 53 % 4:01 PM [facility] LYMPHOCYTES 38 % 09/26/2024 4:01 PM [facility] MONOCYTES 7 % 09/26/2024 4:01 PM [facility] EOSINOPHILS 2 % 09/26/2024 4:01 PM [facility] ABS. NEUTROPHILS 2.86 1.80 - 7.70 x10'3/uL 09/26/2024 4:01 PM [facility] ABS. LYMPHOCYTES 2.06 1.00 - 4.80 x10'3/uL 09/26/2024 4:01 PM MEDICAL INSTRUCTOR [facility] ABS. MONOCYTES 0.38 0.24 - 0.86 x10'3/uL 09/26/2024 4:01 PM [facility] ABS. EOSINOPHILS 0.11 0.04 - 0.36 x10'3/uL 09/26/2024 4:01 PM [facility] DIFFERENTIAL TYPE MANUAL DIFFERENTIAL 09/26/2024 4:01 PM [facility] RBC MORPHOLOGY SLIDE REVIEWED 2024 4:01 PM [facility] PLT EST. ADEQUATE 09/26/2024 4:01 PM [facility] 09/26/2024 8:50 AM MEDICAL INSTRUCTOR us Rupali Bland MD LABORATORY Final Resul t [facility] [address] [facility] [address], [place] [phone] [place] [address], [place] * (ABNORMAL) URINALYSIS AUTO DIP (09/24/2024 9:26 PM MEDICAL INSTRUCTOR) COLOR (U) YELLOW YELLOW 09/24/2024 9:45 PM MEDICAL INSTRUCTOR [facility] TRANSPARENCY CLOUDY(A) CLEAR 09/24/2024 9:45 PM MEDICAL INSTRUCTOR [facility] SPECIFIC GRAVITY (U) 1.015 1.010 - 1.025 09/24/2024 9:45 PM MEDICAL INSTRUCTOR [facility] U PH 6.0 5.0 - 8.5 09/24/2024 9:45 PM MEDICAL INSTRUCTOR [facility] LEUKOCYTES (U) 2+(A) NEGATIVE 09/24/2024 9:45 PM MEDICAL INSTRUCTOR [facility] NITRITES NEGATIVE NEGATIVE 09/24/2024 9:45 PM MEDICAL INSTRUCTOR [facility] PROTEIN RANDOM (U) NEGATIVE NEGATIVE 09/24/2024 9:45 PM MEDICAL INSTRUCTOR [facility] GLUCOSE (U) NEGATIVE NEGATIVE 09/24/2024 9:45 PM MEDICAL INSTRUCTOR [facility] KETONES MG/DL (U) NEGATIVE NEGATIVE 09/24/2024 9:45 PM MEDICAL INSTRUCTOR [facility] UROBILINOGEN 0.2 0.2 - 1.0 EU/DL 09/24/2024 9:45 PM MEDICAL INSTRUCTOR [facility] BILIRUBIN (U) 1+(A) NEGATIVE 09/24/2024 9:45 PM MEDICAL INSTRUCTOR [facility] BLOOD (U) 1+(A) NEGATIVE 09/24/2024 9:45 PM MEDICAL INSTRUCTOR [facility] URINE SPECIMEN OBTAINED BY CLEAN CATCH PROCEDURE / Unknown 09/24/2024 9:26 PM MEDICAL INSTRUCTOR us Jewel Bartholomew MD URINE ORDERABLES Final Result [facility] [address] [place] [address], [place] * CORONAVIRUS (COVID-19) MOLECULAR (08/16/2024 7:00 AM MEDICAL INSTRUCTOR) [facility] CORONAVIRUS SARS COV 2 RNA NEGATIVE NEGATIVE 08/16/2024 7:30 AM MEDICAL INSTRUCTOR [facility] Comment: NEGATIVE RESULTS DO NOT RULE OUT COVID 19 AND SHOULD NOT BE USED THE SOLE BASIS FOR TREATMENT OR PATIENT MANAGEMENT DECISIONS, INCLUDING INFECTION CONTROL DECISIONS. NEGATIVE RESULTS SHOULD BE CONSIDERED IN THE CONTEXT OF A PATIENT'S RECENT EXPOSURES, HISTORY AND THE PRESENCE OF CLINICAL SIGNS AND SYMPTOMS CONSISTENT WITH COVID 19. THE ID NOW COVID-19 2.0 TEST HAS BEEN AUTHORIZED BY THE FDA UNDER EAU FOR USE BY AUTHORIZED LABORATORIES. PERFORMED BY NUCLEIC ACID AMPLIFICATION FOR MOLECULAR QUALITATIVE DETECTION OF SARS-COV-2. SPECIMEN TYPE NASAL 08/16/2024 6:58 AM MEDICAL INSTRUCTOR [facility] NASOPHARYNGEAL SWAB / Unknown 08/16/2024 7:00 AM MEDICAL INSTRUCTOR Rpuali Rudd DO MICROBIOLOGY - GENERAL ORDERAB LES Final Result [facility] [address] [place] [address], [place] * INFLUENZA A & B (08/16/2024 7:00 AM MEDICAL INSTRUCTOR) [facility] SPECIMEN TYPE NASOPHARYNX 08/16/2024 6:58 AM MEDICAL INSTRUCTOR [facility] INFLUENZA A NEGATIVE NEGATIVE 08/16/2024 7:31 AM MEDICAL INSTRUCTOR [facility] INFLUENZA B NEGATIVE NEGATIVE 08/16/2024 7:31 AM MEDICAL INSTRUCTOR [facility] NASAL STRUCTURE / Unknown 08/16/2024 7:00 AM MEDICAL INSTRUCTOR Rupali Rudd DO MICROBIOLOGY - GENERAL ORDERAB LES Final Result [facility] [address] [facility] [place] [address], [place] * A1C (BACK OFFICE) (10/06/2023) HGB A1C 6.7 % [id number] [facility] 10/06/2023 [place] LABORATORY Final Result Performing Organization Address [facility]/State/ZIP Co de Phone Number [phone] [address] [place] [address] [place] [address], * DIABETIC RETINOPATHY EXAM (NEGATIVE) (09/19/2023) [facility] Scanned SCANNING Final Resu lt Performing Organization Address City/[facility]/ZIP Co de Phone Number [facility] * MAMMOGRAM GENERIC (SCAN ORDER) (09/07/2023) Anatomical Region Laterality Modality Other 09/07/2023 Result [facility] Scanned SCANNING Final Resu lt * LIPID PANEL (09/27/2022 9:26 AM MEDICAL INSTRUCTOR) Pathologist [facility] CHOLESTEROL 158 <200 mg/dL [facility] [employer] [facility] HDL 52 > OR = 50 mg/dL [employer] [facility] TRIGLYCERIDES 59 <150 mg/dL [employer] [facility] LDL (CALCULATED) 92 mg/dL (calc) [employer] [facility] Comment: Reference range: <100 Desirable range <100 mg/dL for primary prevention; <70 mg/dL for patients with CHD or diabetic patients with > or = 2 CHD risk factors. LDL-C is now calculated using the Talisha calculation, which is a validated novel method providing better accuracy than the Friedewald equation in the estimation of LDL-C. Eliot SS et al. IRISH. 2013;310(19): 0944-2684 (http://education.[employer]faq/AON355) CHOL/HDL RATIO 3.0 <5.0 (calc) [facility] DIAGNOSTICS [facility] NON HDL CHOLESTEROL 106 <130 mg/dL (calc) [employer] [facility] Comment: For patients with diabetes plus 1 major ASCVD risk factor, treating to a non-HDL-C goal of <100 mg/dL (LDL-C of <70 mg/dL) is considered a therapeutic option. 09/27/2022 9:26 AM MEDICAL INSTRUCTOR 09/28/2022 5:18 AM MEDICAL INSTRUCTOR Narrative Resulting Agency Comment Performing Organization Information: Site ID: [facility]IA Name: [facility] Address: [address] [id number] Director: Silvio Chowdhury MD us Daniel [place] MD LABORATORY Final Re sult [facility] [address] [address] [place] [address], [place] * PAP SMEAR WITH HPV (04/07/2022) 04/07/2022 us [facility] Scanned SCANNING Final Resu lt * THINPREP IMAGING PAP REFLEX HPV MRNA E6/E7, CHLAM & GC (06/28/2013 5:07 PM CDT) REFLEX ADDED yes [facility] P TO EPIC CONVERSION 06/28/2013 5:07 PM CDT 06/28/2013 5:07 PM CDT Narrative [facility] TO EPIC CONVERSION - 07/31/2013 8:13 AM MEDICAL INSTRUCTOR This lab was migrated from [facility] and may be missing annotations or result text, please check the Media tab for the most complete results. us Divya Nava MD PATHOLOGY/CYTOLOGY ORDERABLES F inal Result Performing Organization Address City/[facility]/ZIP Co de Phone Number [facility] TO EPIC CONVERSION from Last 3 Months or Most Recently Relevant to Health Maintenance Insurance AETNA AETNA Care Teams Field Marketing Associate Relationship Specialty Start Date End Date Oren Chaudhary MD [address] [place] [id number] PCP - General FAMILY PRACTICE 06/11/24
--- OUTSIDE RECORDS SUMMARY | 2024-11-07 23:43 | XMS_ITS | Encounter Summary ---
Author Organization [facility] Address [address] [place] [address] Care Team Providers Care Flag Decorator Name Role Phone Mary Ashford NP Primary Care Provider [phone] Shad Gaytan Primary Care Provider [phone] Non-Staff, Provider Primary Care Provider Shad Malone Primary Care Provider [phone] Oren Chaudhary MD Primary Care Provider [phone] Encounter Details Date Type Department Care Team (Late st Contact Info) Description 03/06/2023 Vascular Closure Message Enc [facility] Family & Internal Medicine [address] [address] Isabelle [facility] Provider Echo Social History Tobacco Use Types Packs/Day Years Used Date Smoking Tobacco: Never Smokeless Tobacco: Never Alcohol Use Standard Drinks/Week Comments No 0 (1 standard drink = 0.6 oz pur e alcohol) AUDIT-C Answer Date Recorded Frequency of Alcohol Consumption Never 04/10/2019 Average Number of Drinks Not on file 019 Frequency of Binge Drinking Not on file 03/28 PHQ-2 Answer Date Recorded Patient Health Questionnaire-2 Score 0 02/14/2023 Education Answer Date Recorded What is the highest level of school you have completed or the highest degree you have received? High school graduate 04/10/2019 Comments No Sex and Gender Information Value Date Recorded Sex Assigned at Female 09/13/2024 6:54 AM KENNEL SUPERVISOR Legal Sex Female 8:36 PM CDT Gender Identity Not on file Sexual Orientation Not on file documented as of this encounter Plan of Treatment Upcoming Encounters Date Type Department Care Team (Late st Contact Info) Description 03/12/2025 8:30 AM CDT Office Visit [facility] [address] [place] [address] Skip Marmolejo MD [address] [address] documented as of this encounter Visit Diagnoses Not on filedocumented in this encounter Additional Health Concerns Infection Onset Date Last Indicated Resolved Time COVID-19 Rule Out 2024 2024 2024 9:11 PM CDT COVID-19 Rule Out 06/11/2024 06/11/2024 06/11/2024 6:56 AM CDT COVID-19 Rule Out 08/16/2024 08/16/2024 08/16/2024 7:31 AM KENNEL SUPERVISOR Assessment Noted Time PHQ-9 Depression Total Score: 2 06/17/20 22 8:47 AM CDT documented as of this encounter Care Teams Flag Decorator Relationship Specialty [place] [address] [facility] [address] [place] [address] PCP - General Nurse Practitioner Family 12/06/2210/01 [place] [address] [place] [address] PCP - General Physician Associate Professor Of Archaeology Medical 10/02/23 03/03/24 Non-Staff, Provider PCP - General UNKNOWN PHYSICIAN SPECIALTY 03/04/24 04/10/24 [place] [address] [place] [address] PCP - General Physician Associate Professor Of Archaeology Medical 04/11/24 06/10/24 Oren Chaudhary MD [address] [place] [address] PCP - General FAMILY PRACTICE 06/11/24 documented as of this encounter
--- OUTSIDE RECORDS SUMMARY | 2024-11-07 23:44 | XMS_ITS | Clinical Summary ---
Author Organization [facility] [place] [facility] Address [address] [place] [address] Care Team Providers Care Social Worker School Name Role Phone Oren Chaudhary MD Primary Care Provider [phone] Lizandro Mcdonald MD Unavailable [phone] Skip Marmolejo M.A., MD Unavailable [phone] Sandro Rivera MD Unavailable [phone] Allergies Active Allergy Reactions Criticality Noted Date Comments Bee Pollen Rash Medium 06/24/2013 Penicillins Hives,Unknown Medium 02/20/2015 Pollen Extracts Rash Medium 06/24/2013 Medications blood-glucose meter (OneTouch Verio Flex meter) [facility] OneTouch Verio Flex Meter Active nystatin-triamcin olone cream Apply topically 2 (two) times a day 15 g 024 Active cyclobenzaprine (FLEXERIL) 10 mg tabletIndications :Cervical radiculopathy Take 1 tablet (10 mg total) by mouth 2 (two) times a day as needed for muscle spasms 30 tablet 1 024 Active Additional Information Patient not taking.Reported on 11/01/2024 naproxen (NAPROSYN) 500 mg tabletIndications :Acute pain of left knee Take 1 tablet (500 mg total) by mouth 2 (two) times a day as needed for pain (pain) 30 tablet 1 024 Active sucralfate (CARAFATE) 1 gram tablet 1 tablet (1 g total) Active medroxyPROGESTERo ne (PROVERA) 10 mg tablet Active Slynd tablet tablet Active aspirin 81 mg chewable tablet Active HYDROcodone-aceta minophen (NORCO) 5-325 mg per tablet Take 1 tablet by mouth every 6 (six) hours as needed for pain Active metFORMIN (GLUCOPHAGE) 500 mg tabletIndications :Controlled type 2 diabetes mellitus without complication, without long-term current use of insulin ([facility]) Take 1 tablet (500 mg total) by mouth 2 (two) times a day with meals 180 tablet 1 024 2024 Active cyanocobalamin (vitamin B-12) 500 mcg tabletIndications :Prevention of Vitamin B12 Deficiency Take 1 tablet (500 mcg total) by mouth daily 90 tablet 3 [address] (PROTONIX) 40 mg EC tabletIndications :Gastroesophageal reflux disease without esophagitis TAKE 1 TABLET (40 MG TOTAL) BY MOUTH DAILY 90 tablet 1 024 2024 Active traMADoL (ULTRAM) 50 mg tablet Take 1 tablet (50 mg total) by mouth Active OneTouch Verio test strips stripIndications: Controlled type 2 diabetes mellitus without complication, without long-term current use of insulin ([facility]) Check blood sugar daily 100 each 3 Active lancets miscIndications:C ontrolled type 2 diabetes mellitus without complication, without long-term current use of insulin ([facility]) Check blood sugar daily Onetouch Verio machine 100 each 3 Active clindamycin (CLEOCIN) 300 mg capsule Take 1 capsule (300 mg total) by mouth 3 (three) times a day Active hydrocortisone 2.5 % cream Apply topically 2 (two) times a day Active cephalexin (KEFLEX) 500 mg capsule Take 1 capsule (500 mg total) by mouth every 12 (twelve) hours Active potassium chloride ER 10 mEq CR tablet Take 1 tablet/capsule (10 mEq total) by mouth 2 (two) times a day Active ondansetron ODT (ZOFRAN-ODT) 4 mg disintegrating tablet Take 1 tablet (4 mg total) by mouth every 8 (eight) hours as needed Active metoprolol tartrate (LOPRESSOR) 25 mg immediate release tabletIndications :Hypertension, essential Take 0.5 tablets (12.5 mg total) by mouth 2 (two) times a day 30 tablet 5 025 2024 Active lisinopriL (PRINIVIL,ZESTRIL ) 10 mg tabletIndications :Hypertension, essential Take 1 tablet (10 mg total) by mouth daily 90 tablet 1 025 2024 Active OneTouch Verio test strips strip 022 2024 Discontinued(R eorder) LANCETS MISC 1 each by Not Applicable route daily 022 2024 Discontinued lancets (OneTouch Delica Plus Lancet) 33 gauge misc OneTouch Delica Plus Lancet 33 gauge 2024 Discontinued lisinopriL (PRINIVIL,ZESTRIL ) 5 mg tabletIndications :Hypertension, essential Take 1 tablet (5 mg total) by mouth daily 024 2024 Discontinued(R eorder) metoprolol tartrate (LOPRESSOR) 25 mg immediate release tabletIndications :Hypertension, essential Take 0.5 tablets (12.5 mg total) by mouth 2 (two) times a day 024 2024 Discontinued(R eorder) valACYclovir (VALTREX) 1 gram tabletIndications :Viral rash Take 1 tablet (1,000 mg total) by mouth 3 (three) times a day for 7 days 21 tablet 025 2024 methylPREDNISolon e (MEDROL DOSEPACK) 4 mg DosepackIndicatio ns:Viral rash Take as directed on package. 21 tablet 025 2024 Discontinued methylPREDNISolon e (MEDROL DOSEPACK) 4 mg DosepackIndicatio ns:Viral rash Take as directed on package. 21 tablet 025 2024 Discontinued(T herapy completed) Active Problems Problem Noted Date Diagnosed Date Abdominal pain 07/12/2024 Cardiomyopathy 07/12/2024 Chronic kidney disease due to type 2 diabetes me llitus 07/12/2024 Degenerative disorder of bone 07/12/2024 Impaired fasting glucose 07/12/2024 Iron deficiency 07/12/2024 Mild intermittent asthma 07/12/2024 Gastritis 07/12/2024 Essential hypertension 07/12/2024 Hypertensive disorder 07/12/2024 Class 1 obesity due to exces s calories without serious comorbidity with body mass index (BMI) of 30.0 to 30.9 in adult 04/11/2024 Assessment & Plan (04/11/2024 12:55 PM CDT): Recommended aggressive Lifestyle modification and weight loss for improving overall weight related health conditions. Follow up in 1 or 3 months for continuing Lifestyle Medicine education and management visit. Recommend Lifestyle/Nutrition/Weight Loss Seminar on every other Tuesdays @ 5pm. Sinus headache 02/01/2024 Iron deficiency anemia 12/07/2023 Fibroadenoma of breast, left 09/17/2023 Bilateral nipple discharge 09/17/2023 Obesity (BMI 30.0-34.9) 02/14/2023 Abnormal mammogram of left breast 02/14/2023 Controlled type 2 diabetes m sharon without complication, without long-term current use of insulin 01/26/2022 Rash 12/12/2020 Overview (07/12/2024): Rash and other nonspecific skin eruption; Progress: Stable Added By: Nikolas Wheat Add to Current Problems: YES ProblemStatus: Current Disorder of breast 12/07/2020 Overview (07/12/2024): Disorder of breast, unspecified; Progress: Stable Added By: Nikolas Wheat Add to Current Problems: YES ProblemStatus: Current Discharge from nipple 12/07/2020 Overview (07/12/2024): Nipple discharge; Progress: Stable Added By: Hunter Hardwick Add to Current Problems: YES ProblemStatus: Current Systolic ejection murmur 04/10/2019 Breast signs and symptoms 09/13/2018 Overview (07/12/2024): Other signs and symptoms in breast; Progress: Stable Added By: Tiffany Reynoso Add to Current Problems: YES ProblemStatus: Current Pain of breast 09/13/2018 Overview (07/12/2024): Mastodynia; Progress: Stable Added By: Sahra Hardwick Add to Current Problems: YES ProblemStatus: Current Tinea cruris 09/13/2018 Overview (07/12/2024): Tinea cruris; Progress: Stable Added By: Tiffany Reynoso Add to Current Problems: YES ProblemStatus: Current Inflammatory dermatosis 09/13/2018 Overview (07/12/2024): Dermatitis, unspecified; Progress: Stable Added By: Tiffany Reynoso Add to Current Problems: YES ProblemStatus: Current Breast lump 01/16/2017 Overview (07/12/2024): Breast mass; Progress: Stable Added By: Sahra Hardwick Add to Current Problems: NO ProblemStatus: Resolve Unspecified lump in breast; Progress: Stable Added By: Sahra Hardwick Add to Current Problems: NO ProblemStatus: Resolve Breast mass; Location: None Progress: Stable Added By: Sahra Hardwick Add to Current Problems: YES ProblemStatus: Current Sleep apnea 08/31/2016 Snoring 08/31/2016 Hypertension 08/26/2015 Acid reflux 08/26/2015 Encounters Date Type Department Care Team Description 11/07/2024 2:30 PM CDT Hospital Encounter [facility] [place] - Breast Imaging [address] [place] [address] Floor 8 [place] [address] Fibroadenoma of breast, left 11/07/2024 2:15 PM CDT Office Visit [facility] [address] [place] [address] 8 [place] [address] Barbara Overton, HOOD Pain of breast (Primary Dx); Discharge from nipple; Fibroadenoma of breast, left; Family history of breast cancer in mother; Heterogeneously dense tissue of both breasts on mammography 11/07/2024 2:00 PM CDT Hospital Encounter [facility] - Breast Imaging [address] [facility] Floor 8 [place] [address] Fibroadenoma of breast, left 11/07/2024 Nurse Triage [facility] at [address] [place] [address] Oren Chaudhary MD 11/01/2024 10:00 AM BIAS CUTTER Office Visit [facility] at [address] [place] [address] Oren Chaudhary MD Hypertension, essential (Primary Dx); Viral rash 10/25/2024 Orders Only [facility] Health Information Management [address] [place] [id number] Oren Chaudhary MD 10/23/2024 Nurse Triage [facility] at [address] [place] [address] Oren Chaudhary MD 10/16/2024 Orders Only [facility] Floor 5 [place] [address] Barbara Overton NP Fibroadenoma of breast, left (Primary Dx) 10/10/2024 12:45 PM BIAS CUTTER Telemedicine [facility] at [address] [place] [address] Oren Chaudhary MD Viral rash (Primary Dx) 10/04/2024 Orders Only [facility] Health Information Management [address] [place] [address] Oren Chaudhary MD 10/02/2024 9:20 AM BIAS CUTTER - 10/02/2024 11:59 PM BIAS CUTTER Hospital Encounter [facility] Cardiac Testing [address] [place] [address] Palpitation Discharge Disposition: Discharge to home or self care 09/20/2024 Telephone [facility] at [address] [place] [address] Oren Chaudhary MD Medical Question/Miscellane ous 09/19/2024 9:00 AM BIAS CUTTER Office Visit [facility] at [address] [place] [address] Oren Chaudhary MD Right foot pain (Primary Dx); Encounter for screening mammogram for malignant neoplasm of breast; Palpitation 09/19/2024 Telephone [facility] [address] [facility] [address] [place] [address] Pj Bunch MD 09/10/2024 Orders Only [facility] [address] [facility] Floor 8 [place] [phone] Barbara Overton, HOOD Fibroadenoma of breast, left (Primary Dx) 09/10/2024 Telephone [facility] [address] [place] [address] 8th Floor [address] [place] [phone] Barbara Overton, HOOD 08/19/2024 1:00 PM BIAS CUTTER Office Visit [facility] at [address] [place] [address] Oren Chaudhary MD Hypertension, essential (Primary Dx) 08/16/2024 Nurse Triage [facility] at [address] [place] [address] Oren Chaudhary MD 08/09/2024 Nurse Triage [facility] at [address] [place] [address] Oren Chaudhary MD from Last 3 Months Immunizations Immunization Administration Dates Next Due DTP 10/30/1987,08/08/1986,05/23/1986 ,04/06/1983 Influenza, Unspecified 07/12/2024(Deferr ed: Patient decision),04/28/2023(Deferred: Patient decision) MMR 05/11/1991,04/06/1983 OPV 10/30/1987,08/08/1986,05/23/1986 ,04/06/1983 OPV, Unspecified 10/30/1987,08/08/1986, 6,04/06/1983 Surgical History Surgery Date Site/Laterality Comments CHOLECYSTECTOMY 07/17/2024 Medical History Medical History Date Comments Asthma Gastric reflux Hypertension Diabetes mellitus (HCC) GERD (gastroesophageal reflux disease) Anemia Sleep apnea Menstrual problem Family History Medical History Relation Name Comments Diabetes Father Heart disease Father Brain cancer Father's Brother Alzheimer's disease Maternal Grandfather Feliz narayan Alzheimer's disease Maternal Grandmother Alley Santos s Heart attack Maternal Grandmother Alley Yogi Hypertension Maternal Grandmother Alley Calix Stroke Maternal Grandmother Alley Calix Vision loss Maternal Grandmother Alley Calix Alzheimer's disease Mother Jessica Calix Breast cancer Mother Jessica Calix Cancer Mother Jessica Calix Diabetes Mother Jessica Calix Heart disease Mother Jessica Calix Mental illness Mother Jessica Calix Alzheimer's disease Mother's Brother Chris Calix Colon cancer Mother's Brother Chris Calix Heart attack Mother's Brother Chris Calix Alzheimer's disease Mother's Sister Thelma Cotton Relation Name Status Comments Father Father's Brother Maternal Grandfather Feliz Calix Maternal Grandmother Alley Calix Mother Jessica Calix Mother's Brother Chris Calix Mother's Sister Thelma Kang Social History Tobacco Use Types Packs/Day Years Used Date Smoking Tobacco: Never Cigarettes Smokeless Tobacco: Never Tobacco Cessation:Counseling Given: Not Answered AUDIT-C Answer Date Recorded Q1: How often do you have a drink containing alc ohol? Monthly or less 10/10/2024 Q2: How many drinks containi ng alcohol do you have on a typical day when you are drinking? 1 or 2 10/10/2024 Q3: How often do you have si x or more drinks on one occasion? Less than monthly 10/10/2024 PHQ-2 Answer Date Recorded PHQ-2 Total Score (If total score is 3 or more points, staff should administer the PHQ-9) 0 02/01/2024 PHQ-9 Answer Date Recorded PHQ-9 Total Score 0 02/01/2024 Personal Safety Answer Date Recorded Have you ever been in or are you currently in a harmful physical or emotional relationship or is someone making you feel afraid or unsafe? 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 on file Not on file Not on file Obstetrics History Last Filed Vital Signs Vital Sign Reading Time Taken Comments Blood Pressure 159/104 11/07/2024 2:13 PM CDT Pulse 94 11/07/2024 2:13 PM CDT Temperature 36.3 C (97.4 F) 11/01/2024 10:01 AM BIAS CUTTER Respiratory Rate 22 11/07/2024 2:13 PM CDT Oxygen Saturation 97% 11/07/2024 2:13 PM CDT Inhaled Oxygen Concentration - - Weight 74 kg (163 lb 2.3 oz) 11/07/2024 2:13 PM CDT Height 162.5 cm (5' 3.98 ) 11/07/2024 2:13 PM CD T Body Mass Index 28.02 11/07/2024 2:13 PM CDT Plan of Treatment Health Maintenance Due Date Last Done Comments Cervical Cancer Screening 1981 Hepatitis C Screening 1981 Foot Exam 1981 DTaP/Tdap/Td Vaccine (5 - Tdap) 1992 10/30/1987, 08/08/1986, 05/23/1986, Additional history exists Varicella Vaccines (1 of 2 - 13+ 2-dose series) 1994 Hepatitis B Screening 1999 Pneumococcal vaccine <65 (1 of 2 - PCV) 2000 Hemoglobin A1C 01/09/2025 07/12/2024, 03/18/2024 Depression Screening 01/31/2025 02/01/2024, 02/01/20 24 Regular Well Visit/Exam 18-64 01/31/2025 02/01/2024 Influenza Vaccine (#1) 2025 Postp oned from 04/28/2024 (Patient declined, but will receive in the future) Albumin Creatinine Ratio, Urine 03/18/2025 03/18/2024 Lipid Panel 06/12/2025 06/12/2024, 09/27/2022 eGFR 08/01/2025 08/01/2024, 05/30/2024 Dilated Eye Exam 09/20/2025 09/20/2024 Breast Cancer Screening-Mammogram 11/07/2025 11/07/2024, 09/07/2023, 09/07/2023 HPV Vaccines Aged Out No longer eligi ble based on patient's age to complete this topic Procedures Procedure Name Priority Date/Time Associated Diagnosis Comments US BREAST LEFT LIMITED Schedule Routine, Read Routine (OP Routine) 11/07/2024 3:52 PM CDT Fibroadenoma of breast, left DIAGNOSTIC MAMMOGRAM BILATERAL W MICKEY Schedule Routine, Read Routine (OP Routine) 11/07/2024 3:52 PM CDT Fibroadenoma of breast, left SCAN - RADIOLOGY/IMAGING 10/25/2024 SCAN - LABS 10/04/2024 HOLTER MONITOR 48 HR Routine 10/02/2024 9:24 AM BIAS CUTTER Palpitation DIABETIC EYE EXAM Routine 09/20/2024 10: 18 AM BIAS CUTTER EGFR STAT 08/01/2024 5:36 PM BIAS CUTTER POCT HEMOGLOBIN A1C Routine 07/12/2024 10:30 AM BIAS CUTTER Controlled type 2 diabetes mellitus without complication, without long-term current use of insulin (HCC) LIPID PANEL Routine 06/12/2024 8:52 AM CDT Palpitation Lightheadedness Essential hypertension, benign Screening cholesterol level Abnormal EKG ALBUMIN CREATININE RATIO, URINE Routine 03/18/2024 9:01 AM CDT Type 2 diabetes mellitus with stage 2 chronic kidney disease, without long-term current use of insulin (HCC) from Last 3 Months or Most Recently Relevant to Health Maintenance Results * US Breast Left Limited (11/07/2024 3:52 PM CDT) Anatomical Region Laterality Modality Breast Left Ultrasound 11/07/2024 4:22 PM CDT Impressions 11/07/2024 4:22 PM CDT 1. Stable oval 1.47 m hypoechoic mass in the left breast at the 11 o'clock position 5 cm from the nipple, unchanged dating back to 2021, therefore deemed benign and most likely represents a fibroadenoma. 2. No mammographic evidence of malignancy within either breast. OVERALL FINAL ASSESSMENT: BI-RADS Category 2: Benign. RECOMMENDATION: 1. Annual screening mammography is recommended. 2. Breast MRI should also be considered for supplemental imaging surveillance given family history of breast cancer and/or dense breast tissue. Electronically signed by: Komal York M.D. Narrative 11/07/2024 4:22 PM CDT EXAMINATION: BILATERAL DIGITAL DIAGNOSTIC MAMMOGRAM INCLUDING CAD AND BILATERAL DIGITAL BREAST TOMOSYNTHESIS; LEFT BREAST SONOGRAM HISTORY: 44-year-old woman presents for follow-up of probably benign left breast mass. The patient is also due for her bilateral annual mammogram. The patient has a family history of breast cancer in her mother. COMPARISON: 09/07/2023 and priors dating back to 2017 TECHNIQUE: Full field digital mammographic views of BOTH breasts were performed, including computer aided detection (CAD) and BILATERAL digital breast tomosynthesis (DBT). Directed ultrasound evaluation of the LEFT breast was performed. BREAST PARENCHYMAL COMPOSITION: The breasts are heterogeneously dense, which may obscure small masses. MAMMOGRAM FINDINGS: There is no new suspicious abnormality in either breast. There is a stable oval 1.7 cm equal density mass with partially obscured margins in the slightly upper inner left breast at posterior depth. The mammographic appearance of the bilateral breasts appears stable with comparisons SONOGRAM FINDINGS: Targeted sonographic images in the left breast at the 11 o'clock position 5 cm from the nipple demonstrates a stable oval hypoechoic mass measuring 1.3 x 1.4 x 0.5 cm with circumscribed margins and no significant internal vascularity, not significantly changed dating back to outside ultrasound in 2021. Procedure Note Komal York MD - 11/07/2024 EXAMINATION: BILATERAL DIGITAL DIAGNOSTIC MAMMOGRAM INCLUDING CAD AND BILATERAL DIGITAL BREAST TOMOSYNTHESIS; LEFT BREAST SONOGRAM HISTORY: 44-year-old woman presents for follow-up of probably benign left breast mass. The patient is also due for her bilateral annual mammogram. The patient has a family history of breast cancer in her mother. COMPARISON: 09/07/2023 and priors dating back to 2017 TECHNIQUE: Full field digital mammographic views of BOTH breasts were performed, including computer aided detection (CAD) and BILATERAL digital breast tomosynthesis (DBT). Directed ultrasound evaluation of the LEFT breast was performed. BREAST PARENCHYMAL COMPOSITION: The breasts are heterogeneously dense, which may obscure small masses. MAMMOGRAM FINDINGS: There is no new suspicious abnormality in either breast. There is a stable oval 1.7 cm equal density mass with partially obscured margins in the slightly upper inner left breast at posterior depth. The mammographic appearance of the bilateral breasts appears stable with comparisons SONOGRAM FINDINGS: Targeted sonographic images in the left breast at the 11 o'clock position 5 cm from the nipple demonstrates a stable oval hypoechoic mass measuring 1.3 x 1.4 x 0.5 cm with circumscribed margins and no significant internal vascularity, not significantly changed dating back to outside ultrasound in 2021. IMPRESSION: 1. Stable oval 1.47 m hypoechoic mass in the left breast at the 11 o'clock position 5 cm from the nipple, unchanged dating back to 2021, therefore deemed benign and most likely represents a fibroadenoma. 2. No mammographic evidence of malignancy within either breast. OVERALL FINAL ASSESSMENT: BI-RADS Category 2: Benign. RECOMMENDATION: 1. Annual screening mammography is recommended. 2. Breast MRI should also be considered for supplemental imaging surveillance given family history of breast cancer and/or dense breast tissue. Electronically signed by: Komal York M.D. Barbara Overton ADMITTING MANAGER IMG MAMMO PROCEDURES Fi nal Result * Diagnostic Mammogram Bilateral W Mickey (11/07/2024 3:52 PM CDT) Anatomical Region Laterality Modality Breast Bilateral Mammography 11/07/2024 4:22 PM CDT Impressions 11/07/2024 4:22 PM CDT 1. Stable oval 1.47 m hypoechoic mass in the left breast at the 11 o'clock position 5 cm from the nipple, unchanged dating back to 2021, therefore deemed benign and most likely represents a fibroadenoma. 2. No mammographic evidence of malignancy within either breast. OVERALL FINAL ASSESSMENT: BI-RADS Category 2: Benign. RECOMMENDATION: 1. Annual screening mammography is recommended. 2. Breast MRI should also be considered for supplemental imaging surveillance given family history of breast cancer and/or dense breast tissue. Electronically signed by: Komal York M.D. Narrative 11/07/2024 4:22 PM CDT EXAMINATION: BILATERAL DIGITAL DIAGNOSTIC MAMMOGRAM INCLUDING CAD AND BILATERAL DIGITAL BREAST TOMOSYNTHESIS; LEFT BREAST SONOGRAM HISTORY: 44-year-old woman presents for follow-up of probably benign left breast mass. The patient is also due for her bilateral annual mammogram. The patient has a family history of breast cancer in her mother. COMPARISON: 09/07/2023 and priors dating back to 2017 TECHNIQUE: Full field digital mammographic views of BOTH breasts were performed, including computer aided detection (CAD) and BILATERAL digital breast tomosynthesis (DBT). Directed ultrasound evaluation of the LEFT breast was performed. BREAST PARENCHYMAL COMPOSITION: The breasts are heterogeneously dense, which may obscure small masses. MAMMOGRAM FINDINGS: There is no new suspicious abnormality in either breast. There is a stable oval 1.7 cm equal density mass with partially obscured margins in the slightly upper inner left breast at posterior depth. The mammographic appearance of the bilateral breasts appears stable with comparisons SONOGRAM FINDINGS: Targeted sonographic images in the left breast at the 11 o'clock position 5 cm from the nipple demonstrates a stable oval hypoechoic mass measuring 1.3 x 1.4 x 0.5 cm with circumscribed margins and no significant internal vascularity, not significantly changed dating back to outside ultrasound in 2021. Procedure Note Komal York MD - 11/07/2024 EXAMINATION: BILATERAL DIGITAL DIAGNOSTIC MAMMOGRAM INCLUDING CAD AND BILATERAL DIGITAL BREAST TOMOSYNTHESIS; LEFT BREAST SONOGRAM HISTORY: 44-year-old woman presents for follow-up of probably benign left breast mass. The patient is also due for her bilateral annual mammogram. The patient has a family history of breast cancer in her mother. COMPARISON: 09/07/2023 and priors dating back to 2016 TECHNIQUE: Full field digital mammographic views of BOTH breasts were performed, including computer aided detection (CAD) and BILATERAL digital breast tomosynthesis (DBT). Directed ultrasound evaluation of the LEFT breast was performed. BREAST PARENCHYMAL COMPOSITION: The breasts are heterogeneously dense, which may obscure small masses. MAMMOGRAM FINDINGS: There is no new suspicious abnormality in either breast. There is a stable oval 1.7 cm equal density mass with partially obscured margins in the slightly upper inner left breast at posterior depth. The mammographic appearance of the bilateral breasts appears stable with comparisons SONOGRAM FINDINGS: Targeted sonographic images in the left breast at the 11 o'clock position 5 cm from the nipple demonstrates a stable oval hypoechoic mass measuring 1.3 x 1.4 x 0.5 cm with circumscribed margins and no significant internal vascularity, not significantly changed dating back to outside ultrasound in 2021. IMPRESSION: 1. Stable oval 1.47 m hypoechoic mass in the left breast at the 11 o'clock position 5 cm from the nipple, unchanged dating back to 2021, therefore deemed benign and most likely represents a fibroadenoma. 2. No mammographic evidence of malignancy within either breast. OVERALL FINAL ASSESSMENT: BI-RADS Category 2: Benign. RECOMMENDATION: 1. Annual screening mammography is recommended. 2. Breast MRI should also be considered for supplemental imaging surveillance given family history of breast cancer and/or dense breast tissue. Electronically signed by: Komal York M.D. Barbara Overton NP IMG MAMMO PROCEDURES Fi nal Result * SCAN - RADIOLOGY/IMAGING (10/25/2024) Anatomical Region Laterality Modality Other Oren Chaudhary MD Final Result * SCAN - LABS (10/04/2024) Oren Chaudhary MD Final Result * 48 HR Holter Monitor (10/02/2024 9:24 AM BIAS CUTTER) Anatomical Region Laterality Modality Electrocardiogra phy Narrative 10/07/2024 10:41 AM BIAS CUTTER 48 hour Holter monitor. 10/02/2024-10/04/2024. Indications. Palpitations. Interpretation. The basic rhythm is sinus with average daily heart rate 68. Slowest heart rate 53 which was sinus bradycardia fastest 115 which was sinus tachycardia. To single premature ventricular beats were seen. Rare premature supraventricular beats which were 48 throughout the recording. A 5 beat run of atrial tachycardia were seen rate 121 per minute. There was no V-tach. No atrial fibrillation or atrial flutter. No significant bradycardia. Symptoms of lightheadedness and rapid heartbeat were recorded which did not show any correlating arrhythmias. Conclusions. Normal sinus rhythm with 2 PVCs. Rare premature supraventricular beats and 1 run of atrial tachycardia rate 121 per minute. Symptoms did not correlate with any finding on the Holter. Oren Chaudhary MD CV CARDIAC SERVICES PROCEDURES F inal Result * Diabetic Eye Exam (09/20/2024 10:18 AM BIAS CUTTER) Impressions Tiffany Linares RN - 09/20/2024 10:18 AM BIAS CUTTER NORMAL Historical Provider HEALTH MAINTENANCE Final Result * eGFR (08/01/2024 5:36 PM BIAS CUTTER) eGFR >90 >=60 mL/min/1. 73 m2 Comment: Interpretive Data Reference Interval Normal >/= 90 mL/min/1.73m2 Mildly decreased* 60 - 89 mL/min/1.73m2 Mildly to moderately decreased 45 - 59 mL/min/1.73m2 Moderately to severely decreased 30 - 44 mL/min/1.73m2 Severely decreased 15 - 29 mL/min/1.73m2 Kidney Failure < 15 mL/min/1.73m2 *Relative to young adult level Estimated glomerular filtration rate is determined by the 2020 CKD-EPI equation recommended by the National Kidney Foundation (A Unifying Approach to GFR Estimation: Recommendations of the NKF-ASK Task Force on Reassessing the Inclusion of Race in Diagnosing Kidney Disease, JASN 2020). The CKD-EPI equation should not be used for patients with unstable renal function and has not been validated in children and those over 70. Current interpretive data was last reviewed 2021. Blood 08/01/2024 5:36 PM BIAS CUTTER 08/01/2024 5:43 PM BIAS CUTTER Joy Leonard MD LAB BLOOD ORDERABLE S Final Result [facility] [place]) 1 [facility] [place] [address] * POCT hemoglobin A1c (07/12/2024 10:30 AM BIAS CUTTER) Hemoglobin A1C, POC 5.6 4.0 - 5.6 % Blood 07/12/2024 10:3 0 AM BIAS CUTTER us Oren Chaudhary MD POINT OF CARE TEST ORDERABLES Fi nal Result * Lipid panel (06/12/2024 8:52 AM CDT) Cholesterol 167 30 - 199 mg/dL Comment: Interpretive Data Ages < or = 19 years Acceptable: <170 mg/dL Borderline high: 170-199 mg/dL High: >or= 200 mg/dL Ages > or = 20 years Desirable: <200 mg/dL Borderline high: 200-239 mg/dL High: >or= 240 mg/dL Literature References: 1. Expert Panel on Integrated Guidelines for Cardiovascular Health and Risk Reduction in Children and Adolescents. Pediatrics 2011;128:S213 2. NCEP Expert Panel. Circulation 2004;110:227 Current Interpretive Data was last revised on 2018. Triglycerides 71 <=149 mg/dL MIA Comment: Interpretive Data Ages < or = 9 years Acceptable: <75 mg/dL Borderline high: 75-99 mg/dL High: >or= 100 mg/dL Ages 10 to 20 years Acceptable: <90 mg/dL Borderline high: 90-129 mg/dL High: >or= 130 mg/dL Ages > or = 20 years Desirable: <150 mg/dL Borderline high: 150-199 mg/dL High: 200-499 mg/dL Very high: >or= 499 mg/dL Literature References: 1. Expert Panel on Integrated Guidelines for Cardiovascular Health and Risk Reduction in Children and Adolescents. Pediatrics 2011;128:S213 2. NCEP Expert Panel. Circulation 2004;110:227 Current Interpretive Data was last revised on 2018. HDL 42 >=40 mg/dL MIA Comment: Interpretive Data Ages < or = 19 years Acceptable: >45 mg/dL Borderline low: 40-45 mg/dL Low: <40 mg/dL Ages > or = 20 years Desirable: >or= 60 mg/dL Low: <40 mg/dL Literature References: 1. Expert Panel on Integrated Guidelines for Cardiovascular Health and Risk Reduction in Children and Adolescents. Pediatrics 2011;128:S213 2. NCEP Expert Panel. Circulation 2004;110:227 Current Interpretive Data was last revised on 2018. LDL, calculated 111 <=129 mg/dL MIA WEIR Comment: Interpretive Data Ages < or = 19 years Acceptable: <110 mg/dL Borderline high: 110-129 mg/dL High: >or= 130 mg/dL Ages > or = 20 years Optimal: <100 mg/dL Near optimal: 100-129 mg/dL Borderline high: 130-159 mg/dL High: >160 mg/dL Calculated using the Moisés LDL-C estimating equation. This equation was implemented on 2024. Prior to this date LDL-C was estimated using the Friedewald equation. Literature References: 1. Expert Panel on Integrated Guidelines for Cardiovascular Health and Risk Reduction in Children and Adolescents. Pediatrics 2011;128:S213 2. NCEP Expert Panel. Circulation 2004;110:227 3. Moisés Modi al. IRISH Cardiol. 2019December 26;5(5):540-548. doi: 10.1001/jamacardio.2020.0013 Current Interpretive Data was last revised on 2024. Non-HDL Cholesterol 125 mg/dL MIA WEIR Comment: Interpretive Data Ages < or = 19 years Acceptable: <120 mg/dL Borderline high: 120-144 mg/dL High: >145 mg/dL Ages > or = 20 years When triglycerides are >200 mg/dL, Non-HDL cholesterol is a secondary target of therapy with treatment goals that are 30 mg/dL greater than the LDL cholesterol target. Literature References: 1. Expert Panel on Integrated Guidelines for Cardiovascular Health and Risk Reduction in Children and Adolescents. Pediatrics 2011;128:S213 2. NCEP Expert Panel. Circulation 2004;110:227 Current Interpretive Data was last revised on 2018. Chol/HDL ratio 4 MIA WEIR Blood 06/12/2024 8:52 AM CDT 06/12/2024 1:15 PM CDT us Pj Bunch MD LAB BLOOD ORDERABLES Final Result Performing Organization Address City/[facility] Co de Phone Number MIA [address] [facility] [employer] [place] [address] * Albumin Creatinine Ratio, Urine (03/18/2024 9:01 AM CDT) Albumin Ur <12.0 mg/L Comment: Interpretive Data No reference range established. Current interpretive data was last revised 2019. Creatinine Ur 209.0 mg/dL MIA Comment: Interpretive Data No reference range established. Current interpretive data was last revised 2019. Albumin Creatinine Ratio, Ur <6 1 - 29 mg/g MIA WEIR Urine 03/18/2024 9:01 AM CDT 03/19/2024 6:02 PM CDT Oren Chaudhary MD LAB URINE ORDERABLES Final Resul t Performing Organization Address [facility] Co de Phone Number MIA [address] [facility] [employer] [place] [address] from Last 3 Months or Most Recently Relevant to Health Maintenance Insurance [employer] [facility] [facility] [employer] [facility] Care Teams Social Worker School Relationship Specialty Start Date End Date Oren Chaudhary MD [address] [facility] [address] [place] [address] [place] [id number] PCP - General Family Medicine 02/01/24 [place] [id number] [address] Consulting Physician Pulmonary Disease 04/11/24 Skip Marmolejo M.A., MD [facility] [place], [place] [address] Referring Physician Cardiovascular Disease 04/11/24 Sandro Rivera MD [address] [place] [address] [place] [address] Referring Physician Medical Oncology 04/11/24
--- OUTSIDE RECORDS SUMMARY | 2024-11-07 23:44 | XMS_ITS | Clinical Summary ---
Author Organization [facility] Address [address], [facility] [address] [place] [address] Phone Care Team Providers Care Bullet Slugs Inspector Name Role Phone Shad Gaytan Primary Care Provider [phone] Sandro Rivera MD Unavailable [phone] Allergies Active Allergy Reactions Criticality Noted Date Comments Bee Pollen Rash Medium 06/24/2013 Penicillins Hives,Unknown Medium 02/20/2015 Pollen Extract Rash Medium 06/24/2013 Medications lisinopril (PRINIVIL, ZESTRIL) 10 MG Tablet Take 10 mg by mouth daily. 02/14/2023 Active metFORMIN (GLUCOPHAGE) 500 MG Tablet 2 times daily. 04/28/2022 Active Rybelsus 7 MG Tablet Take 7 mg by mouth. 08/17/2023 Active metoprolol tartrate (LOPRESSOR) 25 MG Tablet Take 12.5 mg by mouth. 11/20/2023 5 Active aspirin 81 MG Chewable Tablet Take 81 mg by mouth. 11/20/2023 Active ALBUTEROL IN take by inhalation. Active Niacin (VITAMIN B-3 PO) Take by mouth. Active sucralfate (CARAFATE) 1 GM Tablet 1 g. 03/07/2024 Active traMADol (ULTRAM) 50 MG Tablet Take 50 mg by mouth. 07/17/2024 Active Active Problems Problem Noted Date Diagnosed Date Iron deficiency anemia 12/07/2023 Encounters Date Type Department Care Team Description 09/05/2024 2:15 PM HUMAN RESOURCES ADVISOR Lab [facility] [address] [address] Nurse, [place] Iron deficiency anemia, unspecified iron deficiency anemia type (Primary Dx) 09/05/2024 1:45 PM HUMAN RESOURCES ADVISOR Office Visit [facility] [address] [address] Aleyda Alfred, PESTICIDE APPLICATOR, GAS TRANSFER OPERATOR Iron deficiency anemia, unspecified iron deficiency anemia type (Primary Dx) 09/05/2024 Travel from Last 3 Months Family History Medical History Relation Name Comments Hypertension Father Breast Cancer Mother Diabetes Mother Hypertension Mother Relation Name Status Comments Brother Alive Child Alive Father Alive Mother Social History Tobacco Use Types Packs/Day Years Used Date Smoking Tobacco: Never Smokeless Tobacco: Never Tobacco Cessation:Counseling Given: Not Answered Alcohol Use Standard Drinks/Week Comments Never 0 (1 standard drink = 0.6 oz pur e alcohol) Comments Unknown Sex and Gender Information Value Date Recorded Sex Assigned at Not on file Legal Sex Female 1:11 PM CDT Gender Identity Not on file Sexual Orientation Not on file Last Filed Vital Signs Vital Sign Reading Time Taken Comments Blood Pressure 128/84 09/05/2024 1:29 PM HUMAN RESOURCES ADVISOR Pulse 78 09/05/2024 1:29 PM HUMAN RESOURCES ADVISOR Temperature 36.6 C (97.8 F) 09/05/2024 1:29 PM HUMAN RESOURCES ADVISOR Respiratory Rate 18 09/05/2024 1:29 PM HUMAN RESOURCES ADVISOR Oxygen Saturation 99% 09/05/2024 1:29 PM HUMAN RESOURCES ADVISOR Inhaled Oxygen Concentration - - Weight 75.5 kg (166 lb 6.4 oz) 09/05/2024 1:29 P M HUMAN RESOURCES ADVISOR Height 162.6 cm (5' 4 ) 09/05/2024 1:29 PM HUMAN RESOURCES ADVISOR Body Mass Index 28.56 09/05/2024 1:29 PM HUMAN RESOURCES ADVISOR Plan of Treatment Upcoming Encounters Date Type Department Care Team (Late st Contact Info) Description 11/28/2024 10:45 AM CDT Lab [facility] [address] [address] Nurse, Zahira [place] 12/05/2024 10:45 AM CDT Office Visit [facility] [address] [place] [address] Sandro Rivera MD [address] [place] [address] Health Maintenance Due Date Last Done Comments Hepatitis C Virus (HCV) Screening 1981 TdaP Immunization 1981 Hepatitis B Immunization (1 of 3 - 19+ 3-dose series) 2000 Pap Smear 2002 Cervical Cancer Screening (CCS) 2011 HPV/Cotest 2011 Influenza Immunization (#1) 2024 SARS-COV-2 Immunization ( season) 2024 Mammogram 09/07/2024 09/07/2023 Respiratory Syncytial Virus (RSV) Immunization (Adult) (1 - 1-dose 75+ series) 2056 DTaP/Tdap/Td Immunization Discontinued 1987, 08/08/1986, 05/23/1986, Additional history exists Discussion re Starting/Frequency of Mammograms Completed 09/07/2023 Meningococcal Immunization (ACWY) Aged Out No longer eligible based on patient's age to complete this topic Pneumococcal Immunization Combined Aged Out No longer eligible based on patient's age to complete this topic Rotavirus Immunization Aged Out No lo nger eligible based on patient's age to complete this topic Procedures Procedure Name Priority Date/Time Associated Diagnosis Comments CBC WITH AUTO DIFF [place] Routine 09/05/2024 2:00 PM HUMAN RESOURCES ADVISOR VITAMIN B12 [id number] [place] Routine 09/05/2024 2:00 PM HUMAN RESOURCES ADVISOR FOLATE [id number] [place] Routine 09/05/2024 2:00 PM HUMAN RESOURCES ADVISOR FERRITIN [id number] [place] Routine 09/05/2024 2: 00 PM HUMAN RESOURCES ADVISOR IRON AND TIBC [id number] [place] Routine 09/05/2024 2:00 PM HUMAN RESOURCES ADVISOR CMP (COMPREHENSIVE METABOLIC PANEL) Routine 09/05/2024 2:00 PM HUMAN RESOURCES ADVISOR Iron deficiency anemia, unspecified iron deficiency anemia type from Last 3 Months Results * VITAMIN B12 [id number] [place] (09/05/2024 2:00 PM HUMAN RESOURCES ADVISOR) VITAMIN B12 649 232 - 1,245 PG/ML CANCER ELECTRIC MOTOR TESTER [facility] 09/05/2024 2:00 PM HUMAN RESOURCES ADVISOR Narrative [facility] ELECTRIC MOTOR TESTER [facility] - 09/07/2024 7:09 AM HUMAN RESOURCES ADVISOR TESTING PERFORMED AT: [] [employer], [address], PHONE: [phone], HVAC LEAD: RIMA SOSA, PHD Aleyda Alfred APRN, GAS TRANSFER OPERATOR LAB SEND OUTS Final Result Performing Organization Address [facility]/ZIP Co de Phone Number CANCER ELECTRIC MOTOR TESTER [facility] [place] [address], [place] [phone] * IRON AND TIBC [id number] [place] (09/05/2024 2:00 PM HUMAN RESOURCES ADVISOR) Iron Bind.Cap.(TIBC) 277 250 - 450 UG/DL CANC[facility] ELECTRIC MOTOR TESTER [facility] UIBC 215 131 - 425 UG/DL CANC[facility] ELECTRIC MOTOR TESTER [facility] Iron, Serum 62 27 - 159 UG/DL [facility] ELECTRIC MOTOR TESTER [facility] Iron Saturation 22 15 - 55 % CANC ER ELECTRIC MOTOR TESTER [facility] 09/05/2024 2:00 PM HUMAN RESOURCES ADVISOR Narrative [facility] - 09/07/2024 10:07 AM HUMAN RESOURCES ADVISOR TESTING PERFORMED AT: [] [facility], [address] [facility], [place], [address], PHONE: [phone], HVAC LEAD: RIMA SOSA, PHD Aleyda Alfred APRN, GAS TRANSFER OPERATOR LAB SEND OUTS Final Result Performing Organization Address [facility]/ZIP Co de Phone Number CANCER ELECTRIC MOTOR TESTER [facility] [address] [place] [address], [place] [phone] * FOLATE [id number] [place] (09/05/2024 2:00 PM HUMAN RESOURCES ADVISOR) Folate (Folic Acid), Serum 7.1 >3.0 NG/ML [facility] Comment: A SERUM FOLATE CONCENTRATION OF LESS THAN 3.1 NG/ML IS CONSIDERED TO REPRESENT CLINICAL DEFICIENCY. 09/05/2024 2:00 PM HUMAN RESOURCES ADVISOR [facility] - 09/07/2024 7:09 AM HUMAN RESOURCES ADVISOR TESTING PERFORMED AT: [] [employer], [address], PHONE: [phone], HVAC LEAD: RIMA SOSA, PHD Aleyda Alfred APRN, GAS TRANSFER OPERATOR LAB SEND OUTS Final Result Performing Organization Address City/[facility]/ZIP Co de Phone Number [facility] [address] [place] [address], [place] [phone] * FERRITIN [id number] [place] (09/05/2024 2:00 PM HUMAN RESOURCES ADVISOR) Ferritin, Serum 69 15 - 150 NG/ML [facility] 09/05/2024 2:00 PM HUMAN RESOURCES ADVISOR [facility] - 09/07/2024 10:07 AM HUMAN RESOURCES ADVISOR TESTING PERFORMED AT: [] [employer], [address], PHONE: [phone], HVAC LEAD: RIMA SOSA, PHD us Aleyda Alfred APRN, GAS TRANSFER OPERATOR LAB SEND OUTS Final Result Performing Organization Address City/[facility]/ZIP Co de Phone Number [facility] [address] [place] [address], [place] [phone] * (ABNORMAL) CBC WITH AUTO DIFF [place] (09/05/2024 2:00 PM HUMAN RESOURCES ADVISOR) WBC 6.8 4.0 - 10.0 10*3/uL CANCER ELECTRIC MOTOR TESTER [facility] HGB 14.4 11.2 - 15.7 g/dL CANCER ELECTRIC MOTOR TESTER [facility] HCT 44.2 34.1 - 44.9 % CANCER ELECTRIC MOTOR TESTER [facility] PLT 276 163 - 369 10*3/uL CAN[facility] ELECTRIC MOTOR TE[facility] MPV 11.0 9.4 - 12.4 fL [facility] ELECTRIC [facility]OR TE[facility] RBC 5.35(H) 3.93 - 5.22 10*6/uL CAN[facility] ELECTRIC MOTOR TESTER [facility] MCV 83 79 - 95 fL CAN[facility] ELECTRIC MOTOR TESTER [facility] MCH 26.9 25.6 - 32.2 pg [facility] ELECTRIC MOTOR TESTER [facility] MCHC 32.6 32.2 - 36.5 g/dL [facility] ELECTRIC MOTOR TE[facility] RDW 13.6 11.6 - 14.4 % [facility] ELECTRIC [facility] TE[facility] Neutrophils % 54.6 36.0 - 66.0 % [facility] Lymphocytes % 30.6 19.0 - 40.0 % [facility] ELECTRIC MOTOR TE[facility] Monocytes % 7.4 4.1 - 12.1 % CAN[facility] ELECTRIC MOTOR TE[facility] Eosinophils % 6.9(H) 0.0 - 3.5 % CAN[facility]ER ELECTRIC MOTOR TESTER [facility] Basophils % 0.4 0.0 - 1.0 % CANCER ELECTRIC MOTOR TESTER [facility] Absolute Neutrophils 3.7 1.4 - 6.6 10*3/uL [facility] ELECTRIC MOTOR TE[facility] Absolute Lymphocytes 2.1 0.8 - 4.0 10*3/uL CAN[facility]ER ELECTRIC MOTOR TESTER [facility] Absolute Monocytes 0.5 0.2 - 1.2 10*3/uL CAN[facility]ER ELECTRIC MOTOR TESTER [facility] Absolute Eosinophils 0.5(H) 0.0 - 0.4 10*3/uL CAN[facility]ER ELECTRIC MOTOR TESTER [facility] Absolute Basophils 0.0 0.0 - 0.1 10*3/uL CAN[facility]ER ELECTRIC MOTOR TESTER [facility] 09/05/2024 2:00 PM HUMAN RESOURCES ADVISOR us Aleyda Alfred PESTICIDE APPLICATOR, GAS TRANSFER OPERATOR LAB SEND OUTS Final Result CANCER ELECTRIC MOTOR TESTER [facility] [place] [address], * (ABNORMAL) CMP (COMPREHENSIVE METABOLIC PANEL) (09/05/2024 2:00 PM HUMAN RESOURCES ADVISOR) Glucose 96 70 - 105 mg/dL [facility] Blood Urea Nitrogen 16 7 - 25 mg/dL [facility] Creatinine 0.9 0.6 - 1.2 mg/dL [facility] Sodium 138 136 - 145 mEq/L [facility] Potassium 4.0 3.5 - 5.1 mEq/L [facility] Chloride 102 98 - 107 mEq/L [facility] Bicarbonate 26 21 - 31 mEq/L [facility] Total Bilirubin 0.3 0.3 - 1.0 mg/dL [facility] Alk. Phosphatase 57 34 - 104 U/L [facility] Aspartate Aminotransferase 11(L) 13 - 39 U/L [facility] Alanine Aminotransferase 10 7 - 52 U/L [facility] Total Protein 7.8 6.4 - 8.9 g/dL [facility] Albumin 4.4 3.5 - 5.7 g/dL [facility] Calcium 9.6 8.6 - 10.3 mg/dL [facility] Anion Gap 14.0 7.0 - 15.0 mEq/L [facility] Globulin 3.4 2.0 - 3.5 g/dL [facility] EGFR 81 >60 ml/min/1. 73m2 [facility] Comment: This eGFR is calculated using 2020 CKD-EPI Creatinine equation without race modifier based on the NKF-ASN task force recommendations Blood 09/05/2024 2:00 PM HUMAN RESOURCES ADVISOR Narrative [facility] - 09/06/2024 9:55 AM HUMAN RESOURCES ADVISOR Release to patient->Immediate IS THE PATIENT REQUIRED TO BE FASTING FOR 8 HOURS?->No us Aleyda Alfred PESTICIDE APPLICATOR, GAS TRANSFER OPERATOR CHEMISTRY ORDERABLES Final Result [facility] ELECTRIC MOTOR TESTER [facility] [address] [place] [address], [place] [phone] from Last 3 Months Insurance MEDICAID [employer] [facility] Care Teams Bullet Slugs Inspector Relationship Specialty Start Date End Date Shad Gaytan PA [address] [place] [address] [phone] PCP - General Physician Professional Organizer 11/13/23 Sandro Rivera MD [address] [place] [address] [phone] Consulting Physician Oncology 11/13/23
--- OUTSIDE RECORDS SUMMARY | 2024-11-07 23:44 | XMS_ITS | Referral Summary ---
Author Organization [facility] Address [facility] [place] [address] Care Team Providers Care Automotive Generator Repairer Name Role Phone Oren Chaudhary MD Primary Care Provider [phone] Lizandro Mcdonald MD Unavailable [phone] Skip Marmolejo M.A., MD Unavailable [phone] Sandro Rivera MD Unavailable [phone] Encounters Date Type Department Care Team Description 11/07/2024 Nurse Triage [facility] Family Medicine at [address] [place] [address] Oren Chaudhary MD 11/07/2024 2:30 PM CDT Hospital Encounter [facility] - Breast Imaging [address] [place] [address] 8 [place] [address] Fibroadenoma of breast, left 11/07/2024 2:00 PM CDT Hospital Encounter [facility] - Breast Imaging [address] [place] [address] Floor 8 [place] [address] Fibroadenoma of breast, left 11/07/2024 2:15 PM CDT Office Visit [facility] [address] [place] [address] 8 [place] [address] Barbara Overton NP Pain of breast (Primary Dx); Discharge from nipple; Fibroadenoma of breast, left; Family history of breast cancer in mother; Heterogeneously dense tissue of both breasts on mammography 11/01/2024 10:00 AM LABORATORY CHIEF Office Visit [facility] Family Medicine at [address] [place] [address] Oren Chaudhary MD Hypertension, essential (Primary Dx); Viral rash 10/25/2024 Orders Only [facility] [address] [place] [address] Oren Chaudhary MD 10/23/2024 Nurse Triage [facility] Family Medicine at [address] [place] [address] Oren Chaudhary MD 10/16/2024 Orders Only [facility] [address] [place] [address] 5 [place] [address] Barbara Overton NP Fibroadenoma of breast, left (Primary Dx) 10/10/2024 12:45 PM LABORATORY CHIEF Telemedicine [facility] Family Medicine at [address] [place] [address] Oren Chaudhary MD Viral rash (Primary Dx) 10/04/2024 Orders Only [facility] Information Management [address] [place] [address] Oren Chaudhary MD 10/02/2024 9:20 AM LABORATORY CHIEF - 10/02/2024 11:59 PM LABORATORY CHIEF Hospital Encounter [facility] Cardiac Testing [address] [place] [address] Palpitation Discharge Disposition: Discharge to home or self care 09/20/2024 Telephone [facility] Family Medicine at [address] [place] [address] Oren Chaudhary MD Medical Question/Miscellane ous 09/19/2024 Telephone [facility] Cardiology [address] [place] [address] Pj Bunch MD 09/19/2024 9:00 AM LABORATORY CHIEF Office Visit [facility] Family Medicine at [address] [place] [address] Oren Chaudhary MD Right foot pain (Primary Dx); Encounter for screening mammogram for malignant neoplasm of breast; Palpitation 09/10/2024 Orders Only [facility] [address] [facility] Floor 8 [place] [address] Barbara Overton NP Fibroadenoma of breast, left (Primary Dx) 09/10/2024 Telephone [facility] Cardiothoracic Surgery [address] [place] [address] 8th Floor [address] Room [address] [place] [phone] Barbara Overton NP 08/19/2024 1:00 PM LABORATORY CHIEF Office Visit [facility] Family Medicine at [address] [place] [address] Oren Chaudhary MD Hypertension, essential (Primary Dx) 08/16/2024 Nurse Triage [facility] Family Medicine at [address] [place] [address] Oren Chaudhary MD 08/09/2024 Nurse Triage [facility] Family Medicine at [address] [place] [address] Oren Chaudhary MD from Last 3 Months Allergies Active Allergy Reactions Criticality Noted Date Comments Bee Pollen Rash Medium 06/24/2013 Penicillins Hives,Unknown Medium 02/20/2015 Pollen Extracts Rash Medium 06/24/2013 Medications blood-glucose meter (OneTouch Verio Flex meter) [facility] OneTouch Verio Flex Meter Active nystatin-triamcin olone cream Apply topically 2 (two) times a day 15 g Active cyclobenzaprine (FLEXERIL) 10 mg tabletIndications :Cervical radiculopathy Take 1 tablet (10 mg total) by mouth 2 (two) times a day as needed for muscle spasms 30 tablet 1 Active Additional Information Patient not taking.Reported on 11/01/2024 naproxen (NAPROSYN) 500 mg tabletIndications :Acute pain of left knee Take 1 tablet (500 mg total) by mouth 2 (two) times a day as needed for pain (pain) 30 tablet 1 Active sucralfate (CARAFATE) 1 gram tablet 1 [...] complication, without long-term current use of insulin ([facility]) Take 1 tablet (500 mg total) by [...] complication, without long-term current use of insulin ([facility]) Check blood sugar daily 100 each 3 025 Active lancets miscIndications:C ontrolled type 2 diabetes mellitus without complication, without long-term current use of insulin ([facility]) Check blood sugar daily Onetouch Verio machine 100 each 3 Active clindamycin (CLEOCIN) 300 mg capsule Take 1 capsule (300 mg total) by mouth 3 (three) times a day Active hydrocortisone 2.5 % cream Apply topically 2 (two) times a day 02/11/2 025 Active cephalexin (KEFLEX) 500 mg capsule Take 1 capsule (500 mg total) by mouth every 12 (twelve) hours 025 Active potassium chloride ER 10 mEq CR tablet Take 1 tablet/capsule (10 mEq total) by mouth 2 (two) times a day 025 Active ondansetron ODT (ZOFRAN-ODT) 4 mg disintegrating tablet Take 1 tablet (4 mg total) by mouth every 8 (eight) hours as needed 025 Active metoprolol tartrate (LOPRESSOR) 25 mg immediate [...] breast 02/14/2023 Controlled type 2 diabetes m ellitus without complication, without long-term current use of [...] Snoring 08/31/2016 Hypertension 08/26/2015 Acid reflux 08/26/2015 Immunizations Immunization Administration Dates Next Due DTP 10/30/1987,08/08/1986,05/23/1986 ,04/06/1983 Influenza, Unspecified 07/12/2024(Deferr ed: Patient decision),04/28/2023(Deferred: Patient decision) MMR 05/11/1991,04/06/1983 OPV 10/30/1987,08/08/1986,05/23/1986 ,04/06/1983 OPV, Unspecified 10/30/1987,08/08/1986, 6,04/06/1983 Social History Tobacco Use Types Packs/Day Years [...] on file Legal Sex Female 8:18 PM LABORATORY CHIEF Gender Identity Not on file Sexual Orientation Not on file 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 on file Not on file Not on file Last Filed Vital Signs Vital Sign Reading Time Taken Comments Blood Pressure 159/104 11/07/2024 2:13 PM CDT Pulse 94 11/07/2024 2:13 PM CDT Temperature 36.3 C (97.4 F) 11/01/2024 10:01 AM LABORATORY CHIEF Respiratory Rate 22 11/07/2024 2:13 PM CDT Oxygen Saturation 97% 11/07/2024 2:13 PM CDT Inhaled Oxygen Concentration - - Weight 74 kg (163 lb 2.3 oz) 11/07/2024 2:13 PM CDT Height 162.5 cm (5' 3.98 ) 11/07/2024 2:13 PM CD T Body Mass Index 28.02 11/07/2024 2:13 PM CDT Plan of Treatment Not on file Procedures Procedure Name Priority Date/Time Associated Diagnosis Comments US BREAST LEFT LIMITED Schedule Routine, Read Routine (OP Routine) 11/07/2024 3:52 PM CDT Fibroadenoma of breast, left DIAGNOSTIC MAMMOGRAM BILATERAL W MICKEY Schedule Routine, Read Routine (OP Routine) 11/07/2024 3:52 PM CDT Fibroadenoma of breast, left SCAN - RADIOLOGY/IMAGING 10/25/2024 SCAN - LABS 10/04/2024 HOLTER MONITOR 48 HR Routine 10/02/2024 9:24 AM LABORATORY CHIEF Palpitation DIABETIC EYE EXAM Routine 09/20/2024 10: 18 AM LABORATORY CHIEF EGFR STAT 08/01/2024 5:36 PM LABORATORY CHIEF POCT HEMOGLOBIN A1C Routine 07/12/2024 10:30 AM LABORATORY CHIEF Controlled type 2 diabetes mellitus without complication, [...] signed by: Komal York M.D. Barbara Overton CUBE MACHINE TENDER IMG MAMMO PROCEDURES Fi nal Result * [...] 48 HR Holter Monitor (10/02/2024 9:24 AM LABORATORY CHIEF) Anatomical Region Laterality Modality Electrocardiogra phy Narrative 10/07/2024 10:41 AM LABORATORY CHIEF 48 hour Holter monitor. 10/02/2024-10/04/2024. Indications. Palpitations. [...] * Diabetic Eye Exam (09/20/2024 10:18 AM LABORATORY CHIEF) Impressions Tiffany Linares, RN - 09/20/2024 10:18 AM LABORATORY CHIEF NORMAL Historical Provider HEALTH MAINTENANCE Final Result * eGFR (08/01/2024 5:36 PM LABORATORY CHIEF) eGFR >90 >=60 mL/min/1. 73 m2 Comment: [...] last reviewed 2021. Blood 08/01/2024 5:36 PM LABORATORY CHIEF 08/01/2024 5:43 PM LABORATORY CHIEF Joy Leonard MD LAB BLOOD ORDERABLE S Final Result MIA OUN ([place]) [address] [facility] [place] [address] * POCT hemoglobin A1c (07/12/2024 10:30 AM LABORATORY CHIEF) Hemoglobin A1C, POC 5.6 4.0 - 5.6 % Blood 07/12/2024 10:3 0 AM LABORATORY CHIEF us Oren Chaudhary MD POINT OF CARE [...] NCEP Expert Panel. Circulation 2004;110:227 3. Moisés Joshi et al. IRISH Cardiol. 2019December 26;5(5):540-548. doi: 10.1001/jamacardio.2020.0013 [...] revised on 2018. Chol/HDL ratio 4 MIA Blood 06/12/2024 8:52 AM CDT 06/12/2024 1:15 PM CDT us Pj Bunch MD LAB BLOOD ORDERABLES Final Result MIA [address] [facility] [place] [address] * Albumin Creatinine Ratio, Urine (03/18/2024 9:01 AM CDT) Albumin Ur <12.0 mg/L Comment: Interpretive Data No reference range established. Current interpretive data was last revised 2019. Creatinine Ur 209.0 mg/dL MIA WEIR Comment: Interpretive Data No reference range established. Current interpretive data was last revised 2019. Albumin Creatinine Ratio, Ur <6 1 - 29 mg/g MIA WEIR Urine 03/18/2024 9:01 AM CDT 03/19/2024 6:02 PM CDT us Oren Chaudhary MD LAB URINE ORDERABLES Final Resul t MIA WEIR [address] [facility] [place], [place] [phone] from Last 3 Months or Most Recently Relevant to Health Maintenance Insurance [facility] [employer] [place] Care Teams Automotive Generator Repairer Relationship Specialty Start Date End Date Oren Chaudhary MD [address] [facility] [address] [address] PCP - General Family Medicine 02/01/24 [place] [address] [address] Consulting Physician Pulmonary Disease 04/11/24 Skip Marmolejo M.A., MD [facility] [place] [address] Referring Physician Cardiovascular Disease 04/11/24 Sandro Rivera MD [address] [place] [address] [place] [address] Referring Physician Medical Oncology 04/11/24
--- OUTSIDE RECORDS SUMMARY | 2024-11-07 23:44 | XMS_ITS | Encounter Summary ---
Author Organization [facility] Healthcare Address [address] [place] [address] Care Team Providers Care Coordinator Skill Training Program Name Role Phone Unavailable Primary Care Provider Unavailabl e Reason for Visit * Diagnostic Imaging (Routine) - Closed Specialty Diagnoses / Procedures Referred By Anthony white Referred To Contact Procedures Breast Imaging Diagnostic Outside Reference Marika Casas NP Phone: tel: fax: Referral ID Status Reason Start Date Expiration Date Visits Re quested Visits Authorized [id number] Closed 08/02/2023 08/31/2024 1 1 Encounter Details Date Type Department Care Team (Late st Contact Info) Description 01/17/2017 Hospital Encounter [facility] [address] [place] [address] Social History Tobacco Use Types Packs/Day Years Used Date Smoking Tobacco: Never Cigarettes Smokeless Tobacco: Never AUDIT-C Answer Date Recorded Q1: How often [...] on file Legal Sex Female 8:18 PM MANAGER LABOR RELATIONS Gender Identity Not on file Sexual Orientation Not on file 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 Monthly or less 10/10/2024 12:37 PM Bakari Prabhakar MA Q2: How many drinks containing alcohol do you have on a typical day when you are drinking? 1 or 2 10/10/2024 12:37 PM Bakari Prabhakar MA Q3: How often do you have six or more drinks on one occasion? Less than monthly 10/10/2024 12:37 PM Bakari Prabhakar MA documented as of this encounter Plan of Treatment Not on file documented as of this encounter Procedures Procedure Name Priority Date/Time Associated Diagnosis Comments BREAST IMAGING MG DIAGNOSTIC OUTSIDE REFERENCE Routine 01/17/2017 12:00 AM CDT documented in this encounter Results * Breast Imaging Diagnostic Outside Reference (01/17/2017 12:00 AM CDT) Impressions [facility] - 08/02/2023 3:20 PM MANAGER LABOR RELATIONS These images are for Reference purposes only and have not been reviewed by [facility] Radiology. There will be no report generated by a [facility] Radiologist. Narrative [facility] - 08/02/2023 3:20 PM MANAGER LABOR RELATIONS EXAMINATION: Images For Reference Purposes Only us Marika Casas NP IMG MAMMO PROCEDURES Final Result [facility] documented in this encounter Visit Diagnoses Not on filedocumented in this encounter Additional Health Concerns Infection Onset Date Last Indicated Resolved Time C. difficile suspected 02/26/2024 02/26/202402/26 3:05 AM CDT documented as of this encounter
--- OUTSIDE RECORDS SUMMARY | 2024-11-07 23:44 | XMS_ITS | Encounter Summary ---
Author Organization [facility] Healthcare Address [address] [place] [address] Care Team Providers Care Lease Out Man Name Role Phone Unavailable Primary Care Provider Unavailabl e Reason for Visit * Diagnostic Imaging (Routine) - Closed Specialty Diagnoses / Procedures Referred By Anthony white Referred To Contact Procedures Breast Imaging US Outside Reference Marika Casas NP Phone: tel: fax: Referral ID Status Reason Start Date Expiration Date Visits Re quested Visits Authorized [id number] Closed 08/02/2023 08/31/2024 1 1 Encounter Details Date Type Department Care Team (Late st Contact Info) Description 01/17/2017 12:05 AM CDT Hospital Encounter [facility] [address] [place] [phone] Social History Tobacco Use Types Packs/Day Years [...] on file Legal Sex Female 8:18 PM AUTOMATIC CLIPPER AND STRIPPER Gender Identity Not on file Sexual Orientation Not on file 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 on file Not on file Not on file documented as of this encounter Functional Status * Audit-C Score Answer Date of Assessment Author 2 10/10/2024 12:37 PM AUTOMATIC CLIPPER AND STRIPPER Becki Reid MA * Question Answer Date of Assessment [...] Priority Date/Time Associated Diagnosis Comments BREAST IMAGING US OUTSIDE REFERENCE Routine 01/17/2017 12:05 AM CDT documented in this encounter Results * Breast Imaging US Outside Reference (01/17/2017 12:05 AM CDT) Impressions [facility] - 08/02/2023 3:23 PM AUTOMATIC CLIPPER AND STRIPPER These images are for Reference purposes only and have not been reviewed by [facility] Radiology. There will be no report generated by a [facility] Radiologist. Narrative [facility] - 08/02/2023 3:23 PM AUTOMATIC CLIPPER AND STRIPPER EXAMINATION: Images For Reference Purposes Only us Marika Casas NP IMG MAMMO PROCEDURES Final Result [facility] documented in this encounter Visit Diagnoses Not on filedocumented in this encounter Additional Health Concerns Infection Onset Date Last Indicated Resolved Time C. difficile suspected 02/26/2024 02/26/202402/26 3:05 AM CDT documented as of this encounter
--- OUTSIDE RECORDS SUMMARY | 2024-11-07 23:44 | XMS_ITS ---
Author Organization Unknown Address [address] [place] [phone] Phone Care Team Providers Care Chief Credit Officer Name Role Phone Honey Mcarthur Registered Nurse Unavailable QUINTON POND Attending Unavailable KAREN CORDERO Primary Unavailable Results URINALYSIS - Collect Date/Ti me: 11/05/2024 07:16 OSEI GIRALDO HUY [place] O ID: [id number] [address] [place] [address], [id number] LOINC: Test Value Unit Reference Range Code [...] 05:39 OSEI GIRALDO HUY [place] O ID: [id number] [address] [place] [address], [id number] LOINC: Test Value Unit Reference Range Code Code System Flag LIPASE 24 IU/L L=11 H=82 CBC WITH AUTO DIFF - Collect Date/Time: 11/05/2024 05:39 OSEI GIRALDO HUY [place] O ID: [id number] [address] [place] [address], [id number] LOINC: Test Value Unit Reference Range Code [...] 11/05/2024 05:39 OSEI KEENMoriah Obregon O ID: [id number] [address] [place] [address], [id number] LOINC: Test Value Unit Reference Range Code Code System Flag TROPONIN HS 0.003 ng/mL L=0.000 H=0.030 MAGNESIUM - Collect Date/Vinny e: 11/05/2024 05:39 OSEI BURGESSKI [place] O ID: [id number] [address] [place] [address], [id number] LOINC: Test Value Unit Reference Range Code Code System Flag MAGNESIUM 1.9 mg/dL L=1.6 H=2.4 COMPLETE METABOLIC PANEL - C ollect Date/Time: 11/05/2024 05:39 OSEI [facility] O ID: [id number] [address] [place] [address], [id number] LOINC: Test Value Unit Reference Range Code [...] CONT RAST - Completed: 11/05/2024 06:34 LOINC: 108[address]-0 [facility] [address] [place] [address] Name: CARMELA HILL Exam: CT ABDOMEN AND PELVIS W CONTRAST Exam Date: 11/05/2024 : 1980 Acc#: [id number] Ordering: SALTY ALCANTARA Referrer: CONSUELO JONES EXAM [...] Kristopher Robledo M.D. RB: QIANA Report ID: [id number] Reading Location: [id number] XR CHEST 1 VIEW - Completed: 11/05/2024 05:51 LOINC: [place] [address] Name: CARMELA HILL Exam: XR CHEST 1 VIEW Exam Date: 11/05/2024 : 1980 Acc#: [id number] Ordering: SALTY ALCANTARA Referrer: CONSUELO JONES EXAM [...] Kristopher Robledo M.D. RB: QIANA Report ID: [id number] Reading Location: [id number] Social History Type Status Start Date End Date Code Code Syst em Smoking History Never smoker (Never Smoked) 793111593 SNOMED CT Sex Female Vital Signs Vital Sign Value Unit [place] Value [place] Unit Date/Time Recent/Initial? Code Code System Body Mass Index 40.02 kg/m2 11/05/2024 04:52 Initial 88335 -5 LOINC Systolic Blood Pressure 122 mm[Hg] [...] Saturation 95 % 2024 07:45 Most Recent 75202 -5 LOINC O2 Saturation 98 % 2024 04:52 Initial 67921 -5 LOINC Pulse 75.0 /min 11/05/2024 07:45 Most Recent 8867- 4 LOINC Pulse 92.0 /min 11/05/2024 04:52 Initial 8867- 4 LOINC Respiration 17 /min 11/06/19 04:52 Initial 9279- 1 LOINC Temperature 37.0 [place] 98.6 F 11/06/19 04:52 Initial 8310- 5 LOINC Weight 75.30 kg 166.00 lbs 11/05/2024 04:52 Initial 73387 -7 LOINC Assessment You had the following [...] Status Code Code System UTERINE FIBROID active 53398939 SNOM ED-CT CHEST PAIN active 13690354 SNOMED-CT GASTRITIS active 7077672 SNOMED-CT ABDOMINAL PAIN active 60435535 SNOME D-CT DEGENERATIVE DISORDER OF BONE active 180412249 SNOMED-CT ESSENTIAL HYPERTENSION active 6598741 0 SNOMED-CT CHRONIC KIDNEY DISEASE DUE TO TYPE 2 DIABETES MELLITUS active 626916327966 SNOMED-CT IRON DEFICIENCY active 92870687 SNOM ED-CT CARDIOMYOPATHY active 05486492 SNOME D-CT IMPAIRED FASTING GLYCAEMIA active 390 758797 SNOMED-CT SLEEP APNEA active 84094322 SNOMED-C T MILD INTERMITTENT ASTHMA active 08147 9007 SNOMED-CT HYPERTENSIVE DISORDER, SYSTEMIC ARTERIAL active 23892427 SNOMED-CT HIATAL HERNIA active 74536416 SNOMED -CT Allergies and Adverse Reactions Allergy Substance Reaction Severity Start Date Concern Status Co de Code System PENICILLIN WELTS A CHILD (SNOMED-CT: null) Moderate Active Plan of Treatment NEW PATIENT 09/17/2024 FOLLOW-UP 11/12/2024 FOLLOW-UP 12/31/2024 Personal Care Team Section Performer Name Performer Role Active Date Inactive Da tushar Progress Notes OSEI Henning 11/05/2024 05:40 IV [...]
--- OUTSIDE RECORDS SUMMARY | 2024-11-07 23:44 | XMS_ITS ---
Author Organization Unknown Address [address] [place], [place] [phone] Phone Care Team Providers Care Frame Trimmer Name Role Phone EMILY MARELY Registered Nurse Unavailable TOMASA Giraldo Attending Unavailable KAREN CORDERO Primary Unavailable Results AMYLASE - Collect Date/Time: 07/13/2024 11:38 OSEI GIRALDO HUY Obregon O ID: [id number] [address] [place], [place], [phone] LOINC: Test Value Unit Reference Range Code Code System Flag AMYLASE 34 IU/L L=29 H=103 CBC WITH AUTO DIFF - Collect Date/Time: 07/13/2024 11:38 OSEI GIRALDO HUY Obregon O ID: [id number] [address] [place], [place], [phone] LOINC: Test Value Unit Reference Range Code [...] - C ollect Date/Time: 07/13/2024 11:38 OSEI ENZO Henning ID: [id number] [address] [place] [address], [phone] LOINC: Test Value Unit Reference Range Code [...] LIPASE - Collect Date/Time: 07/13/2024 11:38 OSEI ENZO Henning ID: [id number] [address] [place], [place], [phone] LOINC: Test Value Unit Reference Range Code Code System Flag LIPASE 22 IU/L L=11 H=82 XR ABDOMEN SERIES AND CHEST 1 VIEW - Completed: 07/13/2024 14:58 LOINC: S[facility] [address] [place] [address] Name: CARMELA HILL Exam: XR ABDOMEN SERIES AND CHEST 1 VIEW Exam Date: 07/13/2024 : 1980 Acc#: [id number] Ordering: RUPALI RANDOLPH Referrer: EXAM DESCRIPTION: XR [...] of a bowel obstruction. There is a aeme-jl-ckrkipkq amount of retained fecal debris in the colon. There is no definite evidence of free air under the diaphragm. The osseous structures are acutely grossly unremarkable. IMPRESSION: No definite evidence of acute cardiopulmonary process. No definite evidence of bowel obstruction. Umfm-lr-lvocvvdq amount of retained fecal debris in the colon, which may be related to mild constipation. THIS IS AN ELECTRONICALLY VERIFIED FINAL REPORT 07/13/2024 12:25 PM - Electronically signed by Gil Chaudhary D.O. PS: PS Report ID: [id number] Reading Location: [id number] Social History Type Status Start Date End Date Code Code Syst em Smoking History Never smoker (Never Smoked) 042041716 SNOMED CT Sex Female Vital Signs Vital Sign Value Unit [place] Value [place] Unit Date/Time Recent/Initial? Code Code System Body Mass Index 28.32 kg/m2 07/13/2024 10:56 Initial 31954 -5 LOINC Systolic Blood Pressure 132 mm[Hg] [...] 64.00 in 07/13/2024 10:56 Initial 8302- 2 INC O2 Saturation 99 % 2023 12:45 Most Recent 78919 -5 LOINC O2 Saturation 98 % 2023 10:56 Initial 31227 -5 LOINC Pulse 70.0 /min 07/13/2024 12:45 Most Recent 8867- 4 INC Pulse 77.0 /min 07/13/2024 10:56 Initial 8867- 4 LOINC Respiration 16 /min 07/13/20 12:45 Most Recent 9279- 1 LOINC Respiration 16 /min 07/13/20 10:56 Initial 9279- 1 LOINC Temperature 36.8 Altagracia 98.3 F 07/13/20 10:56 Initial 8310- 5 LOINC Weight 74.84 kg 165.00 lbs 07/13/2024 10:56 Initial 01438 -7 [facility] Medications Medication Start Date End Date Route Frequency Dose Code Code System Medication Instructions Home Meds Pantoprazole Sodium 40 MG Oral Tablet, Delayed Release 07/17/2024 10/11/2024 ORAL DAILY 40 MG 940899 RxNorm TA KE 40 MG ORAL DAILY FOR Gerd traMADol HCl 50MG Oral Tablet 07/17/2024 10/16/2024 ORAL EVERY 6 HOURS 1 TABLET 362666 RxNorm TAKE 1 TABLET ORAL EVERY 6 HOURS NEEDED FOR PAIN Zofran 4MG Oral Tablet 07/17/2024 10/11/2024 ORAL NEEDED EVERY 4 HOURS 1 TABLET 214079 RxNorm TAKE 1 TABLET ORAL NEEDED EVERY 4 HOURS Mylanta Maximum Strength 800 MG/10 ML-800 MG/10 ML-80 MG/10 ML Oral Suspension 07/17/2024 08/16/2024 ORAL NEEDED 10 mL 846705 RxNorm TAKE 10 mL ORAL NEEDED FOR Gerd metFORMIN HCl 500MG Oral Tablet 07/17/2024 10/11/2024 ORAL TWICE A DAY 500 MILLIGR AMS 383031 RxNorm TAKE 500 MILLIGRAM S ORAL TWICE A DAY FOR Diabetes Slynd 4 MG; NA Oral Tablet 07/17/2024 10/11/2024 ORAL DAILY 4 MILLIGR AMS 3006190 RxNorm TAKE 4 MILLIGRAM S ORAL DAILY FOR Control Metoprolol Tartrate 25MG Oral Tablet 07/17/2024 10/11/2024 ORAL TWICE A DAY 12.5 MILLIGR AMS 232435 RxNorm TAKE 12.5 MILLIGRAM S ORAL TWICE A DAY FOR Blood Pressure Lisinopril 10MG Oral Tablet 07/17/2024 08/16/2024 ORAL DAILY 10 MILLIGR AMS 503365 RxNorm TAKE 10 MILLIGRAM S ORAL DAILY FOR Blood Pressure Albuterol Sulfate HFA 0.09MG/1Actuatio n Inhalation Suspension 07/18/2024 10/11/2024 INHALATIO N NEEDED EVERY 4 HOURS 2 PUFF 6515452 RxNorm 2 PUFF INHALATIO N NEEDED EVERY 4 HOURS Cyclobenzaprine 10MG Oral Tablet 08/17/2024 10/11/2024 ORAL 1 TABLET 772627 RxNorm TAKE 1 TABLET ORAL Assessment You [...] Status Code Code System UTERINE FIBROID active 22510810 SNOM ED-CT CHEST PAIN active 99643329 SNOMED-CT GASTRITIS active 7766161 SNOMED-CT ABDOMINAL PAIN active 37587221 SNOME D-CT DEGENERATIVE DISORDER OF BONE active 399040410 SNOMED-CT ESSENTIAL HYPERTENSION active 4044099 0 SNOMED-CT CHRONIC KIDNEY DISEASE DUE TO TYPE 2 DIABETES MELLITUS active 394362375417 SNOMED-CT IRON DEFICIENCY active 14534467 SNOM ED-CT CARDIOMYOPATHY active 53861988 SNOME D-CT IMPAIRED FASTING GLYCAEMIA active 390 834055 SNOMED-CT SLEEP APNEA active 24168794 SNOMED-C T MILD INTERMITTENT ASTHMA active 15670 9007 SNOMED-CT HYPERTENSIVE DISORDER, SYSTEMIC ARTERIAL active 22030199 SNOMED-CT HIATAL HERNIA active 97675108 SNOMED -CT Allergies and Adverse Reactions Allergy Substance Reaction Severity Start Date Concern Status Co de Code System PENICILLIN WELJOHNATHON A CHILD (SNOMED-CT: null) Moderate Active Plan of Treatment NEW PATIENT 09/17/2024 FOLLOW-UP 11/12/2024 FOLLOW-UP 12/31/2024 Encounters Encounter Diagnosis Start Date Code Code Sys tem Right upper quadrant pain 07/13/2024 SN OMED-CT Personal Care Team Section Performer Name Performer Role Active Date Inactive Da te Progress Notes [facility] SOY Henning 07/13/2024 12:55 EMERGENCY DEPARTMENT DISCHARGE INSTRUCTIONS You were seen in the Emergency Room at [facility] for:abd pain Discharge [x ] Home [ ] [facility] [ ] Skilled Nursing [ ] Left AMA [ ] AMA disclosure signed [ ] Refused to sign disclosure [ ] Left without being seen [ ] Other: DISCHARGE MEDICATIONS: Special Instructions: drink mag citrate PLEASE FOLLOW-UP WITH YOUR PRIMARY CARE PROVIDER IN DAYS. Patient's Signature Date: Nurse Signature Date:
--- OUTSIDE RECORDS SUMMARY | 2024-11-07 23:44 | XMS_ITS ---
Author Organization Unknown Address [address] [place], [place] [phone] Phone Care Team Providers Care Pre K Lead Teacher Name Role Phone QUINTON POND Attending Unavailable KAREN CORDERO Primary Unavailable Results TROPONIN HS - Collect Date/T kaylen: 08/16/2024 22:18 OSEI GIRALDO HUY Obregon O ID: [id number] [address] [place], [place], [phone] LOINC: Test Value Unit Reference Range Code Code System Flag TROPONIN HS 0.010 ng/mL L=0.000 H=0.030 COMPLETE METABOLIC PANEL - C ollect Date/Time: 08/16/2024 20:15 OSEI GIRALDO HUY Obregon O ID: [id number] [address] [place], [place], [phone] LOINC: Test Value Unit Reference Range Code [...] e: 08/16/2024 20:15 OSEI Obregon O ID: [id number] [address] [place] [address], [phone] LOINC: Test Value Unit Reference Range Code Code System Flag MAGNESIUM 2.0 mg/dL L=1.6 H=2.4 CBC WITH AUTO DIFF - Collect Date/Time: 08/16/2024 20:15 OSEI Obregon O ID: [id number] [address] [place] [address], [phone] LOINC: Test Value Unit Reference Range Code [...] - Collect Date/T kaylen: 08/16/2024 20:15 OSEI Obregon O ID: [id number] [address] [place] [address], [phone] LOINC: Test Value Unit Reference Range Code Code System Flag TROPONIN HS 0.010 ng/mL L=0.000 H=0.030 XR CHEST 2 VIEWS - Completed : 08/16/2024 19:53 LOINC: [address] [address] Name: CARMELA HILL Exam: XR CHEST 2 VIEWS Exam Date: 08/16/2024 : 1980 Acc#: [id number] Ordering: SALTY ALCANTARA Referrer: CONSUELO JONES EXAM [...] Lizandro Grewal M.D. MF: JUSTINE Report ID: [id number] Reading Location: [id number] Social History Type Status Start Date End Date Code Code Syst em Smoking History Never smoker (Never Smoked) 010834528 SNOMED CT Sex Female Vital Signs Vital Sign Value Unit [place] Value [place] Unit Date/Time Recent/Initial? Code Code System Body Mass Index 28.15 kg/m2 08/16/2024 19:23 Initial 10435 -5 LOINC Systolic Blood Pressure 166 mm[Hg] 08/16/2024 19:23 Initial 8480- 6 LOINC Diastolic Blood Pressure 83 mm[Hg] 08/16/2024 19:23 Initial 8462- 4 LOINC Body Surface Area 1.83 m2 08/16/2024 19:23 Initial 3140- 1 LOINC Height 162.560 0 cm 64.00 in 08/16/2024 19:23 Initial 8302- 2 INC O2 Saturation 99 % 2023 19:23 Initial 55515 -5 [facility] Pulse 58.0 /min 08/16/2024 19:23 Initial 8867- 4 LOINC Respiration 20 /min 08/16/20 19:23 Initial 9279- 1 INC Temperature 36.5 Altagracia 97.7 F 08/16/20 19:23 Initial 8310- 5 [facility] Weight 74.39 kg 164.00 lbs 08/16/2024 19:23 Initial 65812 -7 [facility] Medications Medication Start Date End Date Route Frequency Dose Code Code System Medication Instructions Home Meds Pantoprazole Sodium 40 MG Oral Tablet, Delayed Release 07/17/2024 10/11/2024 ORAL DAILY 40 MG 678223 RxNorm TA KE 40 MG ORAL DAILY FOR Gerd traMADol HCl 50MG Oral Tablet 07/17/2024 10/16/2024 ORAL EVERY 6 HOURS 1 TABLET 511654 RxNorm TAKE 1 TABLET ORAL EVERY 6 HOURS NEEDED FOR PAIN Zofran 4MG Oral Tablet 07/17/2024 10/11/2024 ORAL NEEDED EVERY 4 HOURS 1 TABLET 202106 RxNorm TAKE 1 TABLET ORAL NEEDED EVERY 4 HOURS Mylanta Maximum Strength 800 MG/10 ML-800 MG/10 ML-80 MG/10 ML Oral Suspension 07/17/2024 08/16/2024 ORAL NEEDED 10 mL 050551 RxNorm TAKE 10 mL ORAL NEEDED FOR Gerd metFORMIN HCl 500MG Oral Tablet 07/17/2024 10/11/2024 ORAL TWICE A DAY 500 MILLIGR AMS 756699 RxNorm TAKE 500 MILLIGRAM S ORAL TWICE A DAY FOR Diabetes Slynd 4 MG; NA Oral Tablet 07/17/2024 10/11/2024 ORAL DAILY 4 MILLIGR AMS 7404234 RxNorm TAKE 4 MILLIGRAM S ORAL DAILY FOR Control Metoprolol Tartrate 25MG Oral Tablet 07/17/2024 10/11/2024 ORAL TWICE A DAY 12.5 MILLIGR AMS 122107 RxNorm TAKE 12.5 MILLIGRAM S ORAL TWICE A DAY FOR Blood Pressure Lisinopril 10MG Oral Tablet 07/17/2024 08/16/2024 ORAL DAILY 10 MILLIGR AMS 188992 RxNorm TAKE 10 MILLIGRAM S ORAL DAILY FOR Blood Pressure Albuterol Sulfate HFA 0.09MG/1Actuatio n Inhalation Suspension 07/18/2024 10/11/2024 INHALATIO N NEEDED EVERY 4 HOURS 2 PUFF 8574399 RxNorm 2 PUFF INHALATIO N NEEDED EVERY 4 HOURS Cyclobenzaprine 10MG Oral Tablet 08/17/2024 10/11/2024 ORAL 1 TABLET 115337 RxNorm TAKE 1 TABLET ORAL Assessment You [...] Status Code Code System UTERINE FIBROID active 04492013 SNOM ED-CT CHEST PAIN active 07077990 SNOMED-CT GASTRITIS active 9513139 SNOMED-CT ABDOMINAL PAIN active 79342848 SNOME D-CT DEGENERATIVE DISORDER OF BONE active 757113136 SNOMED-CT ESSENTIAL HYPERTENSION active 4391870 0 SNOMED-CT CHRONIC KIDNEY DISEASE DUE TO TYPE 2 DIABETES MELLITUS active 288396345023 SNOMED-CT IRON DEFICIENCY active 35377100 SNOM ED-CT CARDIOMYOPATHY active 16324781 SNOME D-CT IMPAIRED FASTING GLYCAEMIA active 390 455091 SNOMED-CT SLEEP APNEA active 94599262 SNOMED-C T MILD INTERMITTENT ASTHMA active 53884 9007 SNOMED-CT HYPERTENSIVE DISORDER, SYSTEMIC ARTERIAL active 63540034 SNOMED-CT HIATAL HERNIA active 39862458 SNOMED -CT Allergies and Adverse Reactions Allergy Substance Reaction Severity Start Date Concern Status Co de Code System PENICILLIN WELTS A CHILD (SNOMED-CT: null) Moderate Active Plan of Treatment NEW PATIENT 09/17/2024 FOLLOW-UP 11/12/2024 FOLLOW-UP 12/31/2024 Encounters Encounter Diagnosis Start Date Code Code Sys tem Chest pain 08/16/2024 83964012 SNOMED-CT Personal Care Team Section Performer Name Performer Role Active Date Inactive Da te Progress Notes OSEI SON SOY Henning 08/16/2024 20:27 IV StartNPSG 1: Name [...] well without any complications or complaints. OSEI SON SOY Henning 08/17/2024 00:04 IV Discontinuation IV Discontinuation per Gerald Parsons, CCT Explained procedure to patient. Using aseptic technique, removed tape and other securement measures, removed IV catheter, catheter intact, applied pressure to site, and applied bio-occlusive dressing over site. Patient tolerated procedure well without complications and site appeared within normal limits. discharge instructions provided. pt discharged ambulatory to [facility].
--- OUTSIDE RECORDS SUMMARY | 2024-11-07 23:45 | XMS_ITS ---
Author Organization Unknown Address [address] [place] [phone] Phone Care Team Providers Care Supervising Architect Name Role Phone JENNY ELISE Registered Nurse Unavailable SAMANTHA DAILY Attending Unavailable KAREN CORDERO Primary Unavailable Social History Type Status Start Date End Date Code Code Syst em Smoking History Never smoker (Never Smoked) 606272896 SNOMED CT Sex Female Vital Signs Vital Sign Value Unit [place] Value [place] Unit Date/Time Recent/Initial? Code Code System Body Mass Index 28.32 kg/m2 10/08/2024 17:53 Initial 77911 -[address] [facility] Systolic Blood Pressure 134 mm[Hg] 10/08/2024 17:53 Initial 8480- 6 LOINC Diastolic Blood Pressure 91 mm[Hg] 10/08/2024 17:53 Initial 8462- 4 INC Body Surface Area 1.84 m2 10/08/2024 17:53 Initial 3140- 1 LOINC Height 162.560 0 cm 64.00 in 10/08/2024 17:53 Initial 8302- 2 LOINC O2 Saturation 98 % 2024 17:53 Initial 38137 -[address] [facility] Pulse 76.0 /min 10/08/2024 17:53 Initial 8867- 4 LOINC Respiration 18 /min 10/08/19 17:53 Initial 9279- 1 LOINC Temperature 37.1 Altagracia 98.8 F 10/08/19 17:53 Initial 8310- 5 LOINC Weight 74.84 kg 165.00 lbs 10/08/2024 17:53 Initial 05284 -[address] [facility] Medications Medication Start Date End Date Route Frequency Dose Code Code System Medication Instructions Home Meds Pantoprazole Sodium 40 MG Oral Tablet, Delayed Release 07/17/2024 10/11/2024 ORAL DAILY 40 MG 302925 RxNorm TA KE 40 MG ORAL DAILY FOR Gerd traMADol HCl 50MG Oral Tablet 07/17/2024 10/16/2024 ORAL EVERY 6 HOURS 1 TABLET 751120 RxNorm TAKE 1 TABLET ORAL EVERY 6 HOURS NEEDED FOR PAIN Zofran 4MG Oral Tablet 07/17/2024 10/11/2024 ORAL NEEDED EVERY 4 HOURS 1 TABLET 135014 RxNorm TAKE 1 TABLET ORAL NEEDED EVERY 4 HOURS metFORMIN HCl 500MG Oral Tablet 07/17/2024 10/11/2024 ORAL TWICE A DAY 500 MILLIGR AMS 365307 RxNorm TAKE 500 MILLIGRAM S ORAL TWICE A DAY FOR Diabetes Slynd 4 MG; NA Oral Tablet 07/17/2024 10/11/2024 ORAL DAILY 4 MILLIGR AMS 1244233 RxNorm TAKE 4 MILLIGRAM S ORAL DAILY FOR Control Metoprolol Tartrate 25MG Oral Tablet 07/17/2024 10/11/2024 ORAL TWICE A DAY 12.5 MILLIGR AMS 198814 RxNorm TAKE 12.5 MILLIGRAM S ORAL TWICE A DAY FOR Blood Pressure Albuterol Sulfate HFA 0.09MG/1Actuatio n Inhalation Suspension 07/18/2024 10/11/2024 INHALATIO N NEEDED EVERY 4 HOURS 2 PUFF 4162670 RxNorm 2 PUFF INHALATIO N NEEDED EVERY 4 HOURS Cyclobenzaprine 10MG Oral Tablet 08/17/2024 10/11/2024 ORAL 1 TABLET 408238 RxNorm TAKE 1 TABLET ORAL Assessment You [...] Status Code Code System UTERINE FIBROID active 59998085 SNOM ED-CT CHEST PAIN active 51510689 SNOMED-CT GASTRITIS active 2280753 SNOMED-CT ABDOMINAL PAIN active 62419245 SNOME D-CT DEGENERATIVE DISORDER OF BONE active 760001200 SNOMED-CT ESSENTIAL HYPERTENSION active 4669413 0 SNOMED-CT CHRONIC KIDNEY DISEASE DUE TO TYPE 2 DIABETES MELLITUS active 854685742902 SNOMED-CT IRON DEFICIENCY active 07524908 SNOM ED-CT CARDIOMYOPATHY active 82318297 SNOME D-CT IMPAIRED FASTING GLYCAEMIA active 390 528427 SNOMED-CT SLEEP APNEA active 14659408 SNOMED-C T MILD INTERMITTENT ASTHMA active 22574 9007 SNOMED-CT HYPERTENSIVE DISORDER, SYSTEMIC ARTERIAL active 24546652 SNOMED-CT HIATAL HERNIA active 87566061 SNOMED -CT Allergies and Adverse Reactions Allergy Substance Reaction Severity Start Date Concern Status Co de Code System PENICILLIN WELTS A CHILD (SNOMED-CT: null) Moderate Active Plan of Treatment NEW PATIENT 09/17/2024 FOLLOW-UP 11/12/2024 FOLLOW-UP 12/31/2024 Encounters Encounter Diagnosis Start Date Code Code Sys tem Localized eruption of skin 10/08/2024 683538372 S NOMED-CT Personal Care Team Section Performer Name Performer Role Active Date Inactive Da tushar
--- OUTSIDE RECORDS SUMMARY | 2024-11-07 23:45 | XMS_ITS | Clinical Summary ---
Author Organization [facility] Address [address] [place] [address] Care Team Providers Care Heart Coordinator Name Role Phone Unavailable Primary Care Provider Unavailabl e Source Comments [facility],non-owned Affiliates and Associated Physician Practices is amultiple site organization consisting of ambulatory clinics and hospital sitesin [place], [place], [place] and [place]. This disclosure is being madepursuant to the Care Everywhere program and may not contain all information available regarding this patient. Last updated 18.[facility] Social History Tobacco Use Types Packs/Day Years Used Date Smoking Tobacco: Never Assessed Sex and Gender Information Value Date Recorded Sex Assigned at Not on file Gender Identity Not on file Sexual Orientation Not on file Plan of Treatment Health Maintenance Due Date Last Done Comments LIPID TESTING 1980 MAMMOGRAM 1980 HIV SCREENING 1996 HEPATITIS C SCREENING 04/11/1999 DTAP/TDAP/TD VACCINES (1 - Tdap) 2000 HEPATITIS B VACCINE (1 of 3 - 19+ 3-dose series) 2000 PAP SMEAR 02/23/2001 02/23/1998, 11/26/1996 COVID-19 VACCINE ( - 2023-2 5 season) 2024 INFLUENZA VACCINE (#1) 2024 DEPRESSION SCREENING 08/28/2024 ZOSTER VACCINE (1 of 2) 2031 HIB VACCINE Aged Out No longer eligi ble based on patient's age to complete this topic HPV VACCINE Aged Out No longer eligi ble based on patient's age to complete this topic MENINGOCOCCAL (Group B) VACCINE SHARED DECISION-MAKING Aged Out No longer eligible based on patient's age to complete this topic MENINGOCOCCAL GROUPS A/C/Y/W VACCINE Aged Out No longer eligible b ased on patient's age to complete this topic PNEUMOCOCCAL VACCINE Aged Out No long er eligible based on patient's age to complete this topic Procedures Procedure Name Priority Date/Time Associated Diagnosis Comments CYTOLOGY SMEAR PAP LAURA 02/23/1998 6: 26 AM CDT from Last 3 Months or Most Recently Relevant to Health Maintenance Results * CYTOLOGY SMEAR PAP (02/23/1998 6:26 AM CDT) Result CASE NUMBER [id number] Comment: ORDERING PHYSICIAN JOAQUÍN MULLER [facility] SPECIMEN TYPE PAP Smear Date 02/20/1998 Procedure Cervical/Endocervical, 1 smear received Specimen Adequacy Satisfactory for Evaluation Categorization Within Normal Limits Comment Inflammation Present. Snomed. 02/26/1998 1313 <1> Party Plan Sales Host/Hostess Sohail Gross (ASCP) PAP Footnote The PAP smear is only a screening procedure to aid in the detection of cervical cancer and its precursors. It is not a diagnostic procedure and should not be used as the sole means to detect cervical cancer. Both false negative and false positive results have been experienced. MISCELLANEOUS SAMPLES / Unknown 02/23/1998 6:26 AM CDT 02/23/1998 11:29 AM CDT Historical Provider LAB - PATHOLOGY/C YTOLOGY ORDERABLES from Last 3 Months or Most Recently Relevant to Health Maintenance
--- OUTSIDE RECORDS SUMMARY | 2024-11-07 23:45 | XMS_ITS ---
Author Organization Unknown Address [address] [place], [place] [phone] Phone Care Team Providers Care Offc Spec Name Role Phone RYANNE PUTNAM Registered Nurse Unavailable ABOCALEB ADERadha Attending Unavailable KAREN CORDERO Primary Unavailable Results CBC WITH AUTO DIFF - Collect Date/Time: 07/17/2024 19:59 OSEI Henning ID: [id number] [address] [place], [place], [phone] LOINC: Test Value Unit Reference Range Code [...] - C ollect Date/Time: 07/17/2024 19:59 OSEI Henning ID: [id number] [address] [place] [address], [phone] LOINC: Test Value Unit Reference Range Code [...] em Smoking History Never smoker (Never Smoked) 360627639 SNOMED CT Sex Female Vital Signs Vital Sign Value Unit [place] Value [place] Unit Date/Time Recent/Initial? Code Code System Body Mass Index 28.15 kg/m2 07/17/2024 19:35 Initial 49339 -5 LOINC Systolic Blood Pressure 140 mm[Hg] [...] Saturation 97 % 2023 20:50 Most Recent 89623 -5 LOINC O2 Saturation 98 % 2023 19:35 Initial 10652 -5 LOINC Pulse 79.0 /min 07/17/2024 20:50 Most Recent 8867- 4 LOINC Pulse 95.0 /min 07/17/2024 19:35 Initial 8867- 4 LOINC Respiration 20 /min 07/17/20 20:50 Most Recent 9279- 1 LOINC Respiration 20 /min 07/17/20 19:35 Initial 9279- 1 LOINC Temperature 36.7 Altagracia 98.0 F 07/17/20 19:35 Initial 8310- 5 LOINC Weight 74.39 kg 164.00 lbs 07/17/2024 19:35 Initial 74873 -7 [facility] Medications Medication Start Date End Date Route Frequency Dose Code Code System Medication Instructions Home Meds Pantoprazole Sodium 40 MG Oral Tablet, Delayed Release 07/17/2024 10/11/2024 ORAL DAILY 40 MG 895668 RxNorm TA KE 40 MG ORAL DAILY FOR Gerd traMADol HCl 50MG Oral Tablet 07/17/2024 10/16/2024 ORAL EVERY 6 HOURS 1 TABLET 237589 RxNorm TAKE 1 TABLET ORAL EVERY 6 HOURS NEEDED FOR PAIN Zofran 4MG Oral Tablet 07/17/2024 10/11/2024 ORAL NEEDED EVERY 4 HOURS 1 TABLET 611454 RxNorm TAKE 1 TABLET ORAL NEEDED EVERY 4 HOURS Mylanta Maximum Strength 800 MG/10 ML-800 MG/10 ML-80 MG/10 ML Oral Suspension 07/17/2024 08/16/2024 ORAL NEEDED 10 mL 847895 RxNorm TAKE 10 mL ORAL NEEDED FOR Gerd metFORMIN HCl 500MG Oral Tablet 07/17/2024 10/11/2024 ORAL TWICE A DAY 500 MILLIGR AMS 345436 RxNorm TAKE 500 MILLIGRAM S ORAL TWICE A DAY FOR Diabetes Slynd 4 MG; NA Oral Tablet 07/17/2024 10/11/2024 ORAL DAILY 4 MILLIGR AMS 5113838 RxNorm TAKE 4 MILLIGRAM S ORAL DAILY FOR Control Metoprolol Tartrate 25MG Oral Tablet 07/17/2024 10/11/2024 ORAL TWICE A DAY 12.5 MILLIGR AMS 050743 RxNorm TAKE 12.5 MILLIGRAM S ORAL TWICE A DAY FOR Blood Pressure Lisinopril 10MG Oral Tablet 07/17/2024 08/16/2024 ORAL DAILY 10 MILLIGR AMS 106391 RxNorm TAKE 10 MILLIGRAM S ORAL DAILY FOR Blood Pressure Albuterol Sulfate HFA 0.09MG/1Actuatio n Inhalation Suspension 07/18/2024 10/11/2024 INHALATIO N NEEDED EVERY 4 HOURS 2 PUFF 2175857 RxNorm 2 PUFF INHALATIO N NEEDED EVERY 4 HOURS Cyclobenzaprine 10MG Oral Tablet 08/17/2024 10/11/2024 ORAL 1 TABLET 379299 RxNorm TAKE 1 TABLET ORAL Assessment You [...] Code Code Syste m Cholecystectomy 07/17/2024 completed 11059015 SNOMEDCT Problems Problem Start Date Resolved Date Status Code Code System UTERINE FIBROID active 38344280 SNOM ED-CT CHEST PAIN active 23871832 SNOMED-CT GASTRITIS active 9059279 SNOMED-CT ABDOMINAL PAIN active 69903519 SNOME D-CT DEGENERATIVE DISORDER OF BONE active 547647039 SNOMED-CT ESSENTIAL HYPERTENSION active 7176515 0 SNOMED-CT CHRONIC KIDNEY DISEASE DUE TO TYPE 2 DIABETES MELLITUS active 133192043708 SNOMED-CT IRON DEFICIENCY active 29103996 SNOM ED-CT CARDIOMYOPATHY active 88258670 SNOME D-CT IMPAIRED FASTING GLYCAEMIA active 390 418022 SNOMED-CT SLEEP APNEA active 48953542 SNOMED-C T MILD INTERMITTENT ASTHMA active 74710 9007 SNOMED-CT HYPERTENSIVE DISORDER, SYSTEMIC ARTERIAL active 83772060 SNOMED-CT HIATAL HERNIA active 31595781 SNOMED -CT Allergies and Adverse Reactions Allergy [...]
--- OUTSIDE RECORDS SUMMARY | 2024-11-07 23:45 | XMS_ITS ---
Author Organization Unknown Address [address] [place] [phone] Phone Care Team Providers Care Agricultural Science Professor Name Role Phone EMILY YAP Registered Nurse Unavailable REID MACE Attending Unavailable KAREN CORDERO Primary Unavailable Social History Type Status Start Date End Date Code Code Syst em Smoking History Never smoker (Never Smoked) 095081292 SNOMED CT Sex Female Vital Signs Vital Sign Value Unit Van[place] Value [place]lue Unit Date/Time Recent/Initial? Code Code System Body Mass Index 27.98 kg/m2 06/10/2024 15:04 Initial 21288 -5 [facility] Systolic Blood Pressure 116 mm[Hg] 06/10/2024 15:04 Initial 8480- 6 LO[facility] Diastolic Blood Pressure 76 mm[Hg] 06/10/2024 15:04 Initial 8462- 4 [facility] Body Surface Area 1.83 m2 06/10/2024 15:04 Initial 3140- 1 LOINC Height 162.560 0 cm 64.00 in 06/10/2024 15:04 Initial 8302- 2 [facility] O2 Saturation 99 % 2023 15:04 Initial 96338 -5 [facility] Pulse 71.0 /min 06/10/2024 15:04 Initial 8867- 4 LOINC Respiration 18 /min 06/10/20 15:04 Initial 9279- 1 LOINC Temperature 36.5 Altagracia 97.7 F 06/10/20 15:04 Initial 8310- 5 LOINC Weight 73.94 kg 163.00 lbs 06/10/2024 15:04 Initial 15045 -7 [facility] Medications Medication Start Date End Date Route Frequency Dose Code Code System Medication Instructions Home Meds Pantoprazole Sodium 40 MG Oral Tablet, Delayed Release 07/17/2024 10/11/2024 ORAL DAILY 40 MG 284035 RxNorm TA KE 40 MG ORAL DAILY FOR Gerd traMADol HCl 50MG Oral Tablet 07/17/2024 10/16/2024 ORAL EVERY 6 HOURS 1 TABLET 275220 RxNorm TAKE 1 TABLET ORAL EVERY 6 HOURS NEEDED FOR PAIN Zofran 4MG Oral Tablet 07/17/2024 10/11/2024 ORAL NEEDED EVERY 4 HOURS 1 TABLET 974472 RxNorm TAKE 1 TABLET ORAL NEEDED EVERY 4 HOURS Mylanta Maximum Strength 800 MG/10 ML-800 MG/10 ML-80 MG/10 ML Oral Suspension 07/17/2024 08/16/2024 ORAL NEEDED 10 mL 433412 RxNorm TAKE 10 mL ORAL NEEDED FOR Gerd metFORMIN HCl 500MG Oral Tablet 07/17/2024 10/11/2024 ORAL TWICE A DAY 500 MILLIGR AMS 868175 RxNorm TAKE 500 MILLIGRAM S ORAL TWICE A DAY FOR Diabetes Slynd 4 MG; NA Oral Tablet 07/17/2024 10/11/2024 ORAL DAILY 4 MILLIGR AMS 9732230 RxNorm TAKE 4 MILLIGRAM S ORAL DAILY FOR Control Metoprolol Tartrate 25MG Oral Tablet 07/17/2024 10/11/2024 ORAL TWICE A DAY 12.5 MILLIGR AMS 760439 RxNorm TAKE 12.5 MILLIGRAM S ORAL TWICE A DAY FOR Blood Pressure Lisinopril 10MG Oral Tablet 07/17/2024 08/16/2024 ORAL DAILY 10 MILLIGR AMS 534552 RxNorm TAKE 10 MILLIGRAM S ORAL DAILY FOR Blood Pressure Albuterol Sulfate HFA 0.09MG/1Actuatio n Inhalation Suspension 07/18/2024 10/11/2024 INHALATIO N NEEDED EVERY 4 HOURS 2 PUFF 5153534 RxNorm 2 PUFF INHALATIO N NEEDED EVERY 4 HOURS Cyclobenzaprine 10MG Oral Tablet 08/17/2024 10/11/2024 ORAL 1 TABLET 110046 RxNorm TAKE 1 TABLET ORAL Assessment You [...] Status Code Code System UTERINE FIBROID active 99476245 SNOM ED-CT CHEST PAIN active 51297700 SNOMED-CT GASTRITIS active 2798515 SNOMED-CT ABDOMINAL PAIN active 72190021 SNOME D-CT DEGENERATIVE DISORDER OF BONE active 788538675 SNOMED-CT ESSENTIAL HYPERTENSION active 7244060 0 SNOMED-CT CHRONIC KIDNEY DISEASE DUE TO TYPE 2 DIABETES MELLITUS active 991361279358 SNOMED-CT IRON DEFICIENCY active 73350303 SNOM ED-CT CARDIOMYOPATHY active 36172839 SNOME D-CT IMPAIRED FASTING GLYCAEMIA active 390 339975 SNOMED-CT SLEEP APNEA active 45556567 SNOMED-C T MILD INTERMITTENT ASTHMA active 82025 9007 SNOMED-CT HYPERTENSIVE DISORDER, SYSTEMIC ARTERIAL active 33104164 SNOMED-CT HIATAL HERNIA active 47049892 SNOMED -CT Allergies and Adverse Reactions Allergy [...]
--- OUTSIDE RECORDS SUMMARY | 2024-11-07 23:46 | XMS_ITS | Encounter Summary ---
Author Organization [facility] Address [address] [place] [address] Phone Care Team Providers Care Cut File Clerk Name Role Phone Oren Chaudhary MD Primary Care Provider [phone] Lizandro Mcdonald MD Unavailable Skip Marmolejo M.A., MD Unavailable [phone] Sandro Rivera MD Unavailable [phone] Encounter Details Date Type Department Care Team (Late st Contact Info) Description 11/07/2024 2:15 PM CDT Office Visit [facility] Surgery [address] [facility] Floor [address] [place] [address] Barbara Overton, HO[facility] [address] [place] [address] Pain of breast (Primary Dx); Discharge from nipple; Fibroadenoma of breast, left; Family history of breast cancer in mother; Heterogeneously dense tissue of both breasts on mammography Social History Tobacco Use Types Packs/Day Years [...] on file Legal Sex Female 8:[address] RECORDER Gender Identity Not on file Sexual Orientation Not on file 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 on file Not on file Not on file documented as of this encounter Last Filed Vital Signs Vital Sign Reading Time Taken Comments Blood Pressure 159/104 11/07/2024 2:13 PM CDT Pulse 94 11/07/2024 2:13 PM CDT Temperature - - Respiratory Rate 22 11/07/2024 2:13 PM CDT Oxygen Saturation 97% 11/07/2024 2:13 PM CDT Inhaled Oxygen Concentration - - Weight 74 kg (163 lb 2.3 oz) 11/07/2024 2:13 PM CDT Height 162.5 cm (5' 3.98 ) 11/07/2024 2:13 PM CD T Body Mass Index 28.02 11/07/2024 2:13 PM CDT documented in this encounter Plan of Treatment Not on file documented as of this encounter Visit Diagnoses Diagnosis Pain of breast- Primary Mastodynia Discharge from nipple Other sign and symptom in breast Fibroadenoma of breast, left Family history of breast cancer in mother Family history of malignant neoplasm of breast Heterogeneously dense tissue of both breasts on mammography documented in this encounter Discontinued Medications Medication Sig Discontinue Reason Start Date End Da te methylPREDNISolone (MEDROL DOSEPACK) 4 mg DosepackIndications:Vir al rash Take as directed on package. Therapy completed 11/01/2024 11/07/2024 documented as of this encounter Care Teams Cut File Clerk Relationship Specialty Start Date End Date Oren Chaudhary MD [address] [facility] [address] [place] [address] [place] [address] PCP - General Family Medicine 02/01/24 [place] [address] [address] Consulting Physician Pulmonary Disease 04/11/24 Skip Marmolejo M.A., MD [facility] [place], [place] [address] Referring Physician Cardiovascular Disease 04/11/24 Sandro Rivera MD [address] [place] [address] [place], [place] [address] Referring Physician Medical Oncology 04/11/24 documented as of this encounter
--- OUTSIDE RECORDS SUMMARY | 2024-11-07 23:46 | XMS_ITS | Encounter Summary ---
Author Organization [facility] Address [address] [place] [address] Care Team Providers Care Lithographic Photographer Apprentice Name Role Phone Oren Chaudhary MD Primary Care Provider [phone] Lizandro Mcdonald MD Unavailable [phone] Skip Marmolejo M.A., MD Unavailable [phone] Sandro Rivera MD Unavailable [phone] Reason for Visit * Reason Onset Date Comments Hypertension 11/07/2024 Encounter Details Date Type Department Care Team (Late st Contact Info) Description 11/07/2024 Nurse Triage [facility] Family Medicine at [address] [place] [address] Oren Chaudhary MD [address] [place] [address] Social History Tobacco Use Types Packs/Day Years [...] on file 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 Was 157/[address] solomon earlier today. She was seen in office last week and BP medications were adjusted: Lisinopril was increased from 5 mg daily to 10 mg daily. PCP also started Metoprolol 12.5 mg BID. Miguel Angel states Cardiology already had her on Metoprolol 25 mg BID so she is taking 1.5 pills BID - PCP unaware that she was previously on Metoprolol. 174/109 pulse 87 currently. She states she has frequent brief pinching pain/sensation in her chest when she lays down and is not sure if that is BP related or muscle related She is due for pm dose of Metoprolol in about an hour. RN instructs her to take dose now and RN will call back in 1 hour to get updated BP reading. Miguel Angel states she has been to ED multiple times for HTN and is sent home without med adjustments and told to follow up with PCP. BP Readings from Last 3 Encounters: 11/07/24 (!) 159/104 11/01/24 148/92 09/19/24 100/64 Current BP medications: Metoprolol 37.5 mg BID (increased last week) Lisinopril 10 mg daily (increased last week) Denies: shortness of breath, chest pain, vision changes, unsteady gait Call back 1 hour after PM medication: Repeat BP 163/105 HR 91. She denies shortness of breath and chest pain at this time but states she has chest tightness. She is opting to be evaluated in ED tonight. Routing to PCP as FYI and follow up medication adjustment when office is open. Reason for Disposition Systolic BP >= 160 OR Diastolic >= 100 Protocols used: Blood Pressure - [id number] * Telephone Encounter - Thelma Arreola RN - 11/07/2024 5:43 PM CDT Regarding: bp is high- 159/104 ----- Message from Belkys Michelle sent at 11/07/2024 5:38 PM CDT ----- Chief concern: bp is high Duration: gradually over last couple weeks but higher at night Callback #: [phone] Additional Information: on new bp meds and currently is 159/104. Trouble sleeping and feels like itis higher at night documented in this encounter Plan of Treatment Not on file documented as of this encounter Visit Diagnoses Not on filedocumented in this encounter Care Teams Lithographic Photographer Apprentice Relationship Specialty Start Date End Date Oren Chaudhary MD [address] [address] PCP - General Family Medicine 02/01/24 [place] [address] [address] Consulting Physician Pulmonary Disease 04/11/24 Skip Marmolejo M.A., MD [facility] [place] [address] Referring Physician Cardiovascular Disease 04/11/24 Sandro Rivera MD [address] [place] [address] [place] [address] Referring Physician Medical Oncology 04/11/24 documented as of this encounter
--- OUTSIDE RECORDS SUMMARY | 2024-11-07 23:46 | XMS_ITS | Encounter Summary ---
Author Organization [facility] Address [address] [place] [address] Care Team Providers Care Cytotechnologist Supervisor Name Role Phone Oren Chaudhary MD Primary Care Provider [phone] Lizandro Mcdonald MD Unavailable [phone] Skip Marmolejo M.A., MD Unavailable [phone] Sandro Rivera MD Unavailable [phone] Reason for Referral * Diagnostic Imaging (Routine) - Closed Specialty Diagnoses / Procedures Referred By Contbernice white Referred To Contact Diagnoses Fibroadenoma of breast, left Procedures US Breast Left Limited Barbara Overton NP [address] [address] Phone: tel: fax: [facility] (All Locations) Referral ID Status Reason Start Date Expiration Date Visits Re quested Visits Authorized [id number] Closed 10/16/2024 11/15/2025 1 1 Reason for Visit * Diagnostic Imaging (Routine) - Closed Specialty Diagnoses / Procedures Referred By Anthony white Referred To Contact Diagnoses Fibroadenoma of breast, left Procedures US Breast Left Limited Barbara Overton NP [address] [address] Phone: tel: fax: [facility] (All Locations) Referral ID Status Reason Start Date Expiration Date Visits Re quested Visits Authorized [id number] Closed 10/16/2024 11/15/2025 1 1 Encounter Details Date Type Department Care Team (Latest Contact Info) Description 11/07/2024 2:30 PM CDT Hospital Encounter [facility] - Breast Imaging [address] [facility] Floor [address] [place] [address] Fibroadenoma of breast, left Social History Tobacco Use Types Packs/Day Years [...] on file 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 Barbara Overton SUPERVISOR GAME [employer] IMG MAMMO PROCEDURES Fi nal Result documented in this encounter Visit Diagnoses Diagnosis Fibroadenoma of breast, left documented in this encounter Care Teams Cytotechnologist Supervisor Relationship Specialty Start Date End Date Oren Chaudhary MD [address] [facility] [address] [place] [address] PCP - General Family Medicine 02/01/24 [place] [address] [facility] [address] [place] [address] Consulting Physician Pulmonary Disease 04/11/24 Skip Marmolejo M.A., MD [facility]5 [place] [address] Referring Physician Cardiovascular Disease 04/11/24 Sandro Rivera MD [address] [place] [address] Referring Physician Medical Oncology 04/11/24 documented as of this encounter
--- OUTSIDE RECORDS SUMMARY | 2024-11-07 23:46 | XMS_ITS ---
Author Organization Unknown Address [address] [place], [place] [address] Phone Care Team Providers Care Chalk Tester Name Role Phone EMILY MARELY Registered Nurse Unavailable GERRY Devries Attending Unavailable KAREN CORDERO Primary Unavailable Results URINALYSIS - Collect Date/Ti me: 10/20/2024 19:41 OSEI GIRALDO HUY Obregon O ID: [id number] [address] [place], [place], [phone] LOINC: Test Value Unit Reference Range Code [...] OSEI GIRALDO HUY OLIVIER C O ID: [id number] [address] [place], [place], [phone] LOINC: Test Value Unit Reference Range Code Code System Flag LIPASE 46 IU/L L=11 H=82 CBC WITH AUTO DIFF - Collect Date/Time: 10/20/2024 18:12 OSEI GIRALDO HUY Obregon O ID: [id number] [address] [place], [place], [phone] LOINC: Test Value Unit Reference Range Code [...] Date/Time: 10/20/2024 18:12 OSEI BURGESSKI Henning ID: [id number] [address] [place] [address], [phone] LOINC: Test Value Unit Reference Range Code [...] 10/20/2024 18:12 OSEI OLIVIER Sabas Henning ID: [id number] [address] [place] [address], [phone] LOINC: 4537-7 Test Value Unit Reference Range Code Code System Flag SED RATE 37 mm/HR L=0 H=20 H Social History Type Status Start Date End Date Code Code Syst em Smoking History Never smoker (Never Smoked) 722069882 SNOMED CT Sex Female Vital Signs Vital Sign Value Unit [place] Value [place] Unit Date/Time Recent/Initial? Code Code System Body Mass Index 28.15 kg/m2 10/20/2024 17:08 Initial 99977 -5 [facility] Systolic Blood Pressure 130 mm[Hg] [...] Saturation 99 % 2024 20:09 Most Recent 33836 -5 [facility] O2 Saturation 97 % 2024 17:08 Initial 50856 -5 [facility] Pulse 70.0 /min 10/20/2024 20:09 Most Recent 8867- 4 [facility] Pulse 61.0 /min 10/20/2024 17:08 Initial 8867- 4 LOINC Respiration 20 /min 10/20/19 25 20:09 Most Recent 9279- 1 LOINC Respiration 16 /min 10/20/19 17:08 Initial 9279- 1 LOINC Temperature 36.9 Altagracia 98.4 F 10/20/19 17:08 Initial 8310- 5 LOINC Weight 74.39 kg 164.00 lbs 10/20/2024 17:08 Initial 13749 -7 [facility] Assessment You had the following [...] Status Code Code System UTERINE FIBROID active 34167109 SNOM ED-CT CHEST PAIN active 63945199 SNOMED-CT GASTRITIS active 0485035 SNOMED-CT ABDOMINAL PAIN active 51307330 SNOME D-CT DEGENERATIVE DISORDER OF BONE active 681255607 SNOMED-CT ESSENTIAL HYPERTENSION active 0476000 0 SNOMED-CT CHRONIC KIDNEY DISEASE DUE TO TYPE 2 DIABETES MELLITUS active 610776209165 SNOMED-CT IRON DEFICIENCY active 39562685 SNOM ED-CT CARDIOMYOPATHY active 05320955 SNOME D-CT IMPAIRED FASTING GLYCAEMIA active 390 274839 SNOMED-CT SLEEP APNEA active 91472890 SNOMED-C T MILD INTERMITTENT ASTHMA active 18151 9007 SNOMED-CT HYPERTENSIVE DISORDER, SYSTEMIC ARTERIAL active 36638549 SNOMED-CT HIATAL HERNIA active 55840749 SNOMED -CT Allergies and Adverse Reactions Allergy [...]
--- OUTSIDE RECORDS SUMMARY | 2024-11-07 23:46 | XMS_ITS | Referral Summary ---
Author Organization [facility] [employer] Address [address] [facility] [place] [address] Care Team Providers Care Burlapper Name Role Phone Unavailable Primary Care Provider Unavailabl e Source Comments [facility] [employer],non-owned Affiliates and Associated Physician Practices is amultiple site organization consisting of ambulatory clinics and hospital sitesin [place], [place], [place] and [place]. This disclosure is being madepursuant to the Care Everywhere program and may not contain all information available regarding this patient. Last updated 18.[facility] [employer] Social History Tobacco Use Types Packs/Day Years Used Date Smoking Tobacco: Never Assessed Sex and Gender Information Value Date Recorded Sex Assigned at Not on file Gender Identity Not on file Sexual Orientation Not on file Plan of Treatment Not on file Procedures Procedure Name Priority Date/Time Associated Diagnosis Comments CYTOLOGY SMEAR PAP LAURA 02/23/1998 6: 26 AM CDT from Last 3 Months or Most Recently Relevant to Health Maintenance Results * CYTOLOGY SMEAR PAP (02/23/1998 6:26 AM CDT) Result CASE NUMBER [id number] Comment: ORDERING PHYSICIAN JOAQUÍN MULLER [facility] SPECIMEN TYPE PAP Smear Date 02/20/1998 Procedure Cervical/Endocervical, 1 smear received Specimen Adequacy Satisfactory for Evaluation Categorization Within Normal Limits Comment Inflammation Present. Snomed. 02/26/1998 1313 <1> Caisson Worker Sohail Gross (ASCP) PAP Footnote The PAP [...]
--- OUTSIDE RECORDS SUMMARY | 2024-11-07 23:46 | XMS_ITS | Patient Health Summary ---
Author Organization [facility] Address [address] [place] [address] Care Team Providers Care Director Of Consumer Marketing Name Role Phone Unavailable Primary Care Provider Unavailabl e Note from [facility],non-owned Affiliates and Associated Physician Practices is amultiple site organization consisting of ambulatory clinics and hospital sitesin [place], [place], [place] and [place]. This disclosure is being madepursuant to the Care Everywhere program and may not contain all information available regarding this patient. Last updated 18.[facility] Social History Tobacco Use Types Packs/Day Years Used Date Smoking Tobacco: Never Assessed Sex and Gender Information Value Date Recorded Sex Assigned at Not on file Gender Identity Not on file Sexual Orientation Not on file Procedures * GROSS + MICRO EXAM(Performed 11/20/2007) * CYTOLOGY SMEAR PAP(Performed 02/23/1998) * CYTOLOGY SMEAR PAP(Performed 11/26/1996) Results * GROSS + MICRO EXAM (11/20/2007 9:45 AM CDT) Result CASE NUMBER [id number] Comment: ORDERING PHYSICIAN LG PETERSON SPECIMEN TYPE Placenta Date 11/20/2007 Physician Candida Peterson Gross Description The specimen is received in Formalin labeled with the patient's name, Miguel Angel Calix, and placenta. It consists of an 18 x 17 x 2.5 cm inman discoid placenta with attached membranes and umbilical cord. The placenta has a trimmed weight of 490 grams. The umbilical cord inserts 5 cm from the nearest placental edge. It has three blood vessels and measures 15 cm in length and up to 1.1 cm in diameter. The membranes are slightly opacified shiny wrinkled green stained and rupture marginally. The surface displays a dusky bluish hess appearance with a very slight green tinge. The maternal surface displays intact cotyledons and loosely adherent blood clot on the surface. The cut surfaces reveal no intraparenchymal gross abnormalities. Named Account Executive sections of the specimen are submitted in cassettes A through C. LW pizarro Microscopic Exam Microsections reveal a three vessel umbilical cord and chorioamniotic membranes with no pathologic changes. The chorionic plate and decidua basalis are unremarkable. The chorionic villi are small, mature, well vascularized with syncytial knots noted and no evidence of villitis or infarction. GM/na Diagnosis I. Placenta -- Mature placenta, 490 grams -- Three vessel umbilical cord with no pathologic changes -- Chorioamniotic membranes with no pathologic changes GM/na Team Assembler na Pathologist Arabella Hancock M.D. Snomed. 11/21/2007 1036 <1> CPT code 59818 MISCELLANEOUS SAMPLES / Unknown 11/20/2007 9:45 AM CDT 11/20/2007 9:45 AM CDT Historical Provider LAB - PATHOLOGY/C YTOLOGY ORDERABLES * CYTOLOGY SMEAR PAP (02/23/1998 6:26 AM CDT) Only the most recent of2 resultswithin the time period is included. Result CASE NUMBER [id number] Comment: ORDERING PHYSICIAN JOAQUÍN MULLER [facility] SPECIMEN TYPE PAP Smear Date 02/20/1998 Procedure Cervical/Endocervical, 1 smear received Specimen Adequacy Satisfactory for Evaluation Categorization Within Normal Limits Comment Inflammation Present. Snomed. 02/26/1998 1313 <1> Certified Breastfeeding Educator Sohail Gross (ASCP) PAP Footnote The PAP [...]
--- OUTSIDE RECORDS SUMMARY | 2024-11-07 23:46 | XMS_ITS | Encounter Summary ---
Author Organization [facility] Healthcare Address [address] [place] [address] Care Team Providers Care Sports Analyst Name Role Phone Oren Chaudhary MD Primary Care Provider [phone] Lizandro Mcdonald MD Unavailable Skip Marmolejo M.A., MD Unavailable [phone] Sandro Rivera MD Unavailable [phone] Reason for Referral * Diagnostic Imaging (Routine) - Closed Specialty Diagnoses / Procedures Referred By Anthony white Referred To Contact Diagnoses Fibroadenoma of breast, left Procedures Diagnostic Mammogram Bilateral W Barbara Welch NP [address] [address] Phone: tel: fax: [facility] [address] [place] [address] Referral ID Status Reason Start Date Expiration Date Visits Re quested Visits Authorized [id number] Closed 10/16/2024 11/15/2025 1 1 Reason for Visit * Diagnostic Imaging (Routine) - Closed Specialty Diagnoses / Procedures Referred By Anthony white Referred To Contact Diagnoses Fibroadenoma of breast, left Procedures Diagnostic Mammogram Bilateral W Barbara Welch NP [address] [address] Phone: tel: fax: [facility] [address] [place] [address] Referral ID Status Reason Start Date Expiration Date Visits Re quested Visits Authorized [id number] Closed 10/16/2024 11/15/2025 1 1 Encounter Details Date Type Department Care Team (Latest Contact Info) Description 11/07/2024 2:00 PM CDT Hospital Encounter [facility] - Breast Imaging [address] [facility] [address] [place] [address] Fibroadenoma of breast, left Social History Tobacco [...] on file 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 Gender Identity Not on file Sexual Orientation Not on file 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 Barbara Overton LEGAL NURSE CONSULTANT IMG MAMMO PROCEDURES Fi nal Result documented in this encounter Visit Diagnoses Diagnosis Fibroadenoma of breast, left documented in this encounter Care Teams Sports Analyst Relationship Specialty Start Date End Date Oren Chaudhary MD [address] [address] [place] [address] PCP - General Family Medicine 02/01/24 [place] [address] [facility] [address] [place] [address] Consulting Physician Pulmonary Disease 04/11/24 Skip Marmolejo M.A., MD [address] [place] [address] [id number] Referring Physician Cardiovascular Disease 04/11/24 Sandro Rivera MD [address] [place] [address] [address] [place], [place] [id number] Referring Physician Medical Oncology 04/11/24 documented as of this encounter
== END 2024-11-07 23:50 | disposition home or self-care (01) ==
LOC: ANHED 23:42
PROVIDERS: Emergency Provider Emergency Medicine; PCP Family Medicine
DX: I10 Essential (primary) hypertension (principal)
CPT/HCPCS: 71045; 99283